=== PATIENT | female | born 1935 | race Two or more races ===

== ENCOUNTER → 2024-02-07 | Outpatient (CLI) | payer OTHER, MEDICAID, SELFPAY ==
[2024-02-07 09:32] LABS: Basophils % (Auto) 0 % (0-2.5); Eosinophils % (Auto) 1 % (0-10); Hematocrit 39.2 % (36.0-46.0); Hemoglobin 13.5 g/dL (12.0-16.0); Immature Granulocytes % (Auto) 1 % (0-0); Immature Granulocytes Auto 0.07 Thou/mm3 (0.00-0.00); Lymphocytes # (Auto) 2.3 Thou/mm3 (1.0-4.8); Lymphocytes % (Auto) 30 % (10-50); Mean Corpuscular HGB Conc 34.4 g/dl (31.0-37.0); Mean Corpuscular Hemoglobin 30.6 pg (25.0-35.0); Mean Corpuscular Volume 89 fL (80-100); Monocytes # (Auto) 0.6 Thou/mm3 (0.0-0.8); Monocytes % (Auto) 8 % (0-12); Neutrophils # (Auto) 4.6 Thou/mm3 (1.8-7.7); Neutrophils % (Auto) 61 % (37-80); Nucleated Red Blood Cell % 0 /100 WBC (0); Platelet Count 272 Thou/mm3 (140-440); RDW Standard Deviation 46.1 fL (36.4-46.3); Red Blood Count 4.41 Miln/mm3 (4.00-5.20); White Blood Count 7.6 Thou/mm3 (3.6-11.0)
[2024-02-07 09:53] LABS: Alanine Aminotransferase 24 U/L (10-49); Albumin, Serum 4.5 gm/dL (3.4-4.8); Alkaline Phosphatase 196 U/L (46-116); Anion Gap 8 (7-16); Aspartate Amino Transferase 15 U/L (0-34); BUN/Creatinine Ratio 16 Ratio (12-20); Bilirubin,Total 1.1 mg/dL (0.3-1.2); Blood Urea Nitrogen 14 mg/dL (9-23); Carbon Dioxide 28.9 mMol/L (20.0-31.0); Chloride 101 mMol/L (98-107); Cholesterol 132 mg/dL (132-200); Creatinine (Component) 0.9 mg/dL (0.6-1.3); Globulin 2.3 gm/dL (2.3-3.5); Glucose 138 mg/dL (74-106); HDL Cholesterol 67 mg/dL (40-60); LDL Cholesterol,Calculated 46 mg/dL (0-130); Osmolality,Calculated 278 (275-295); Potassium 3.9 mMol/L (3.4-5.1); Sodium 138 mMol/L (136-145); Thyroid Stimulating Hormone 3.36 uIU/mL (0.55-4.78); Total Protein 6.8 gm/dL (5.7-8.2); Triglycerides 93 mg/dL (30-150); eGFR > 60 See Note
[2024-02-07 10:15] LABS: Ferritin 103 ng/mL (7.3-270.7)
[2024-02-07 10:25] LABS: Iron 93 mcg/dL (50-170)
[2024-02-07 10:50] LABS: Glucose Estimated Average 212 mg/dL (80-131)
== END | disposition home or self-care (01) ==
LOC: COPL 08:33
PROVIDERS: PCP Family Medicine; Referring Provider Physician Assistant; Visit Provider Physician Assistant
DX: E11.65 Type 2 diabetes mellitus with hyperglycemia (principal); E03.9 Hypothyroidism, unspecified; I10 Essential (primary) hypertension; E78.5 Hyperlipidemia, unspecified; D50.9 Iron deficiency anemia, unspecified
CPT/HCPCS: 36415; 80053; 80061; 82728; 83036; 83540; 84443; 85025

== ENCOUNTER 2024-02-20 10:51 | Emergency (ER) | payer OTHER, MEDICAID, SELFPAY ==
[2024-02-20 11:11] VITALS: BP 131/81; PULSE 82; RESP 19; TEMP 36.5; O2SAT 95; BMI 31.8
--- NOTE | 2024-02-20 11:13 | XR_ITS ---
Examination: CT brain head without contrast. 2-D sagittal coronal reconstructions Date and time of exam:February 20, 2024 1129 hrs. Comparison 11/27/2023 Indications: Headaches beginning 10 days ago CTDI: vol (mGy):49.7 DLP: (mGycm):991 Technique: Multiple CT axial sections of the brain have been obtained, 5 mm slice thickness. Contrast has not been administered. 2-D sagittal, coronal reconstructions have been obtained Low dose protocols were performed. One or more of the following dose reduction techniques were used; automated exposure control, adjustment of the mA and/or KV according to patient size, use of iterative reconstruction technique. Findings: No significant ventricular enlargement. Intra-axial or extra-axial hemorrhage density is not seen. No mass effect or midline shift Basal cisterns are not remarkable. Fourth ventricle is midline. Cranial vault intact. Impression: Negative for acute hemorrhage, mass effect or midline shift Significant chronic sphenoid sinusitis
--- NOTE | 2024-02-20 11:13 | XR_ITS ---
Examination: AP chest single view Technique: Sitting AP chest single view Exam date and time: February 20, 2024 1159 hrs. Comparison May 27, 2023 Indications: Epigastric pain beginning 3 days ago. Findings: Mild enlargement cardiac contour Mild vascular congestion. No lobar pneumonia Impression: Mild vascular congestion
--- NOTE | 2024-02-20 11:15 | EKG_ITS ---
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
--- NOTE | 2024-02-20 11:16 | PD.EDRME ---
Rapid Medical Screening Exam RME Arrival date/time: 02/20/24 10:51 Chief Complaint: Abdominal Pain Time Seen by Provider: 02/20/24 11:00 Vital signs: Vital Signs Temperature 97.7 F 02/20/24 11:11 Pulse Rate 82 02/20/24 11:11 Respiratory Rate 19 02/20/24 11:11 Blood Pressure 131/81 H 02/20/24 11:11 Pulse Oximetry (%) 95 02/20/24 11:11 Oxygen Delivery Method Room Air 02/20/24 11:11 RME Narrative: Epigastric pain, nausea and headache x 10 days
[2024-02-20 11:35] LABS: Basophils % (Auto) 0 % (0-2.5); Eosinophils % (Auto) 1 % (0-10); Hematocrit 38.2 % (36.0-46.0); Hemoglobin 13.2 g/dL (12.0-16.0); Immature Granulocytes % (Auto) 1 % (0-0); Immature Granulocytes Auto 0.06 Thou/mm3 (0.00-0.00); Lymphocytes # (Auto) 2.2 Thou/mm3 (1.0-4.8); Lymphocytes % (Auto) 25 % (10-50); Mean Corpuscular HGB Conc 34.6 g/dl (31.0-37.0); Mean Corpuscular Hemoglobin 30.8 pg (25.0-35.0); Mean Corpuscular Volume 89 fL (80-100); Monocytes # (Auto) 0.5 Thou/mm3 (0.0-0.8); Monocytes % (Auto) 6 % (0-12); Neutrophils # (Auto) 5.8 Thou/mm3 (1.8-7.7); Neutrophils % (Auto) 68 % (37-80); Nucleated Red Blood Cell % 0 /100 WBC (0); Platelet Count 304 Thou/mm3 (140-440); RDW Standard Deviation 46.3 fL (36.4-46.3); Red Blood Count 4.28 Miln/mm3 (4.00-5.20); White Blood Count 8.6 Thou/mm3 (3.6-11.0)
[2024-02-20 11:49] LABS: Alanine Aminotransferase 22 U/L (10-49); Albumin, Serum 4.3 gm/dL (3.4-4.8); Albumin/Globulin Ratio 1.7 (1.2-2.2); Alkaline Phosphatase 240 U/L (46-116); Anion Gap 8 (7-16); Aspartate Amino Transferase 36 U/L (0-34); BUN/Creatinine Ratio 10 Ratio (12-20); Bilirubin,Total 0.8 mg/dL (0.3-1.2); Blood Urea Nitrogen 8 mg/dL (9-23); Calcium 9.5 mg/dL (8.3-10.6); Calcium (Corrected) 9.5 mg/dL (8.5-10.1); Carbon Dioxide 27.4 mMol/L (20.0-31.0); Chloride 100 mMol/L (98-107); Creatinine (Component) 0.8 mg/dL (0.6-1.3); Estimated Creatinine Clearance 44.5 mL/min (>60); Globulin 2.5 gm/dL (2.3-3.5); Glucose 197 mg/dL (74-106); Lipase 26 U/L (12-53); Osmolality,Calculated 273 (275-295); Potassium 3.6 mMol/L (3.4-5.1); Sodium 135 mMol/L (136-145); Total Protein 6.8 gm/dL (5.7-8.2); Troponin I < 0.020 ng/mL (0.0-0.045); eGFR > 60 See Note
[2024-02-20 12:16] LABS: Collection Type, Urine Clean Catch
[2024-02-20 12:28] LABS: Bacteria,Urine 3+; Bilirubin,Urine Negative (Negative); Blood,Urine Negative (Negative); Color,Urine Yellow (Lt Yel-Yel); Glucose, Urine Negative (Negative); Ketones,Urine Negative (Negative); Leukocyte Esterase,Urine Positive (Negative); Nitrite,Urine Positive (Negative); Protein,Urine Trace (Neg - Trace); RBC,Urine 2 /hpf (0-3); Specific Gravity,Urine 1.013 (1.001-1.035); Squamous Epithelial Cell,Urine 1 /hpf (0-5); Urobilinogen,Urine Negative mg/dL (0.0-1.0); WBC,Urine 38 /hpf (0-5)
[2024-02-20 12:29] LABS: Clarity,Urine Hazy (Clear/Hazy)
[2024-02-20 13:50] VITALS: BP 150/78; PULSE 79; RESP 18; TEMP 36.4; O2SAT 96
--- NOTE | 2024-02-20 14:26 | PD.EDADULT ---
ED General RME/HPI General Chief complaint: Abdominal Pain Stated complaint: ABD PAIN/NAUSEA/HEADACHE x 10 DAYS Time Seen by Provider: 02/20/24 11:00 Arrival date/time: 02/20/24 10:51 CC: Headache and upper abdominal pain ongoing for the past 10 days denies any medications for the headache. Denies any pain with urination right now but several days ago it was hurting. Patient denies any vomiting but states she has intermittent nausea. Denies chest pain shortness of breath. No other complaints at this time. RME / HPI RME / HPI narrative: Epigastric pain, nausea and headache x 10 days Related Data Home Medications ?Medication ?Instructions ?Recorded ?Confirmed cilostazol 50 mg tablet 50 mg PO QDAY 04/30/22 09/15/23 isosorbide mononitrate 30 mg 30 mg PO QAM 04/30/22 09/15/23 tablet,extended release 24 hr levothyroxine 50 mcg tablet 50 mcg PO QDAY 04/30/22 09/15/23 amiodarone 200 mg tablet (Pacerone) 200 mg PO QDAY 02/17/23 09/15/23 amlodipine 5 mg tablet (Norvasc) 5 mg PO 2XD 02/17/23 09/15/23 carvedilol 6.25 mg tablet 6.25 mg PO BID 02/17/23 09/15/23 gabapentin 300 mg capsule 300 mg PO 2XD 02/17/23 09/15/23 (Neurontin) hydroxyzine HCl 10 mg tablet 10 mg PO QPM PRN Itching 02/17/23 09/15/23 insulin degludec 100 unit/mL 100 unit subcut QPM 02/17/23 02/17/23 subcutaneous solution (Tresiba U-100 Insulin) melatonin 3 mg tablet 6 mg PO QPM 02/17/23 09/15/23 pantoprazole 40 mg tablet,delayed 40 mg PO 1XD 02/17/23 09/15/23 release (Protonix) revefenacin 175 mcg/3 mL solution 175 mcg inhalation 1XD 02/17/23 02/17/23 for nebulization rosuvastatin 10 mg tablet 10 mg PO QPM 02/17/23 09/15/23 alendronate 70 mg tablet 70 mg PO QWEEK 07/10/24 07/10/24 Previous Rx's ?Medication ?Instructions ?Recorded apixaban 2.5 mg tablet (Eliquis) 2.5 mg PO BID #60 tabs 06/10/20 furosemide 20 mg tablet (Lasix) 20 mg PO QAM #7 tabs 02/26/23 potassium chloride 20 mEq 20 meq PO QDAY #7 tabs 02/26/23 tablet,extended release naproxen 500 mg tablet (Naprosyn) 500 mg PO BID PRN pain #14 tabs 05/27/23 meloxicam 15 mg tablet 15 mg PO QDAY #14 tabs 07/30/23 ciprofloxacin HCl 500 mg tablet 500 mg PO BID #14 tabs 02/20/24 (Cipro) meloxicam 7.5 mg tablet 7.5 mg PO QDAY #10 tabs 02/20/24 ondansetron 4 mg disintegrating 4 mg PO Q8H #10 tabs 02/20/24 tablet Allergies Allergy/AdvReac Type Severity Reaction Status Date / Time No Known Allergies Allergy Verified 02/20/24 10:57 Review of Systems Review of Systems Narrative Review of Systems: GEN: No fever, no chills, no weight loss EYES: No discharge, no visual changes, no pain HEENT: No ear pain, no congestion, no sore throat PULM: No shortness of breath, no cough, no congestion CV: No chest pain, no dyspnea on exertion, no palpitations GI: + nausea, no vomiting, no diarrhea, no pain, no constipation : No frequency, no urgency, no dysuria MUSC/SKEL: No joint pain, no back pain SKIN: No rash PSYCH: No hallucinations, no depression HEME/LYMPH: No easy bleeding or bruising tendencies NEURO: No weakness, + headache Past Medical History Past Medical History NEUROLOGIC: Positive Neurological Disorders and Transient Ischemic Attacks (TIA); Negative Seizures CARDIAC: Positive Cardiac Disorders, Atrial Fibrillation, Coronary Artery Disease, Hypercholesterolemia, Congestive Heart Failure, Hypertension and Varicose Veins; Negative Deep Vein Thrombosis RESPIRATORY: Positive Asthma, Bronchitis and Pneumonia; Negative Chronic Obstructive Pulmonary Disease (COPD) GASTROINTESTINAL: Positive Gastrointestinal Disorders, Gastrointestinal Bleed and Obesity GENITOURINARY: Positive Renal Disease; Negative Genitourinary Disorders REPRODUCTIVE: Positive Previous Pregnancies; Negative Pelvic Inflammatory Disease MUSCULOSKELETAL: Positive Musculoskeletal Disorders, Arthritis and Rheumatoid Arthritis ENT: Positive Cataracts and Deafness ENDOCRINE: Positive Endocrine Disorders and Diabetes Mellitus Type 2; Negative Diabetes Mellitus Type 1 HEMATOLOGIC: Positive Anemia; Negative Blood Disorders, Sickle Cell Disease or Clotting Problems PSYCHO/SOCIAL: Negative Anxiety OTHER HISTORY: Positive Falls; Negative Hospitalization, Blood Transfusions or Anesthesia Reactions Family History FAMILY HISTORY: Negative Family Neurologic Problems, Family Psychiatric Problems, Family Respiratory Disorders, Family Cardiac Disorders, Family Gastrointestinal Problems, Family Cancer, Family Surgery or Family Anesthesia Reaction Surgical History SURGICAL: Positive Cardiac Catheterization, Angiogram, Eye Surgery and Abdominal Surgery; Negative Endocrine Surgery Social History SMOKING STATUS: Never smoker SECOND HAND EXPOSURE: No SUBSTANCE USE: does not use ED Exam Narrative Physical exam: [General: Obese not in any acute distress Head normocephalic HEENT: Within acceptable limits Neck is supple nontender Chest equal chest rise nontender to palpation Respiratory: Clear to auscultation no wheezes crackles or rubs CV: Rate rhythm is regular no murmurs rubs or clicks Abdomen is distended secondary to body habitus soft nontender no masses positive bowel sounds all 4 quadrants Back: No CVA tenderness no spinous process tenderness from cervical spine thoracic and lumbar spine Skin: Intact no petechiae rash induration ulceration or crepitus Extremities: Moving all extremity against resistance cap refill less than 2 seconds neurosensory intact Neuro: Awake alert oriented x3 Glascow coma 15 no focal deficits] Course Quality Measures none Orders Category Date Time Status EKG (ED ONLY) *Do not use* NOW Care 02/20/24 11:[address] head/brain wo con Stat Exams 02/20/24 11:13 Completed CXR [XR chest 1V] Stat Exams 02/20/24 11:13 Completed EKG (ED Only) Stat Exams 02/20/24 11:15 Draft CBC Stat Lab 02/20/24 11:25 Completed CMP [Comprehensive Metabolic Panel] Stat Lab 02/20/24 11:25 Completed Lipase Stat Lab 02/20/24 11:25 Completed Troponin I Stat Lab 02/20/24 11:25 Completed UA [Urinalysis] Stat Lab 02/20/24 11:51 Completed Ibuprofen Tab [Motrin Tab] Med 02/20/24 14:25 Once 600 mg PO X1 ONE Vital Signs Vital signs: Vital Signs Temperature 97.7 F 02/20/24 11:11 Pulse Rate 82 02/20/24 11:11 Respiratory Rate 19 02/20/24 11:11 Blood Pressure 131/81 H 02/20/24 11:11 Pulse Oximetry (%) 95 02/20/24 11:11 Oxygen Delivery Method Room Air 02/20/24 11:11 [facility] Patient data External records reviewed:: [facility] previous records Clinical information provided by:: patient and family Social determinants that could affect healthcare access:: none Patient has the following chronic illnesses:: Diabetes hypertension hypothyroidism How is presenting disease/condition affected by chronic disease/condition?: uneffected by Evaluation data The following diagnostics were reviewed and interpreted by me:: lab results, radiology exam(s) and EKG tracing(s) Lab and/or radiology exams considered but not ordered:: CT of the head is negative for any acute finding requires emergent or immediate intervention EKG performed at 1120 shows a ventricular rate of 82 SC interval 156 QRS of 146 QTc of 484 sinus rhythm right bundle branch block. When compared to old EKG of November 2023 there are no significant changes. CBC shows no acute leukocytosis anemia thrombocytopenia CMP shows no significant electrolyte imbalances other than elevated blood glucose level no renal impairment transaminitis or T. bili elevation Urine is positive for urinary tract infection. Interpretation Summary: UTI headache Medications Medications considered but not ordered:: None Medication administrations:: None Consultations Consultation(s) initiated? (list below): No Diagnosis Differential Diagnosis ED Complaint MDM: UTI intercranial hemorrhage CVA Most likely diagnosis given after review of the tests above:: UTI nausea headache Admission Indicated Admission indicated?: not indicated Explain why admission is indicated or not indicated:: Stable for outpatient follow-up Admission Request Was there a request for admission?: No Disposition Plan Disposition Plan: Discharge Discharge Attestation Discharge Attestation: The patient and all family members were given an opportunity to ask questions and understood the discharge instructions. Discharge instructions specifically effects, indications for sooner follow up or return to the emergency department, and the expected course of current diagnosis. Patient condition: Stable Medical Decision Making Differential Diagnosis Differential Diagnosis: UTI intercranial hemorrhage CVA Lab Data 02/20/24 11:25 02/20/24 11:25 Labs: Lab Results 02/20/24 02/20/24 Range/Units 11:25 11:51 WBC 8.6 (3.6-11.0) Thou/mm3 RBC 4.28 (4.00-5.20) Miln/mm3 Hgb 13.2 (12.0-16.0) g/dL Hct 38.2 (36.0-46.0) % MCV 89 (80-100) fL MCH 30.8 (25.0-35.0) pg MCHC 34.6 (31.0-37.0) g/dl RDW Std Deviation 46.3 (36.4-46.3) fL Plt Count 304 D (140-440) Thou/mm3 Neut % (Auto) 68 (37-80) % Lymph % (Auto) 25 (10-50) % [place] % (Auto) 6 (0-12) % Eos % (Auto) 1 (0-10) % Baso % (Auto) 0 (0-2.5) % Neut # (Auto) 5.8 (1.8-7.7) Thou/mm3 Lymph # (Auto) 2.2 (1.0-4.8) Thou/mm3 [place] # (Auto) 0.5 (0.0-0.8) Thou/mm3 Eos # (Auto) 0.0 (0.0-0.5) Thou/mm3 Baso # (Auto) 0.0 (0.0-0.2) Thou/mm3 Immature Gran # (Auto) 0.06 H (0.00-0.00) Thou/mm3 Absolute Nucleated RBC 0.00 (0.00-0.00) Thou/mm3 Immature Gran % 1 H (0-0) % Nucleated RBC % 0 (0) /100 WBC Sodium 135 L (136-145) mMol/L Potassium 3.6 (3.4-5.1) mMol/L Chloride 100 (98-107) mMol/L Carbon Dioxide 27.4 (20.0-31.0) mMol/L Anion Gap 8 (7-16) BUN 8 L (9-23) mg/dL Creatinine 0.8 (0.6-1.3) mg/dL Estim Creat Clear Calc 44.5 L (>60) mL/min eGFR > 60 (60 - ) See Note BUN/Creatinine Ratio 10 L (12-20) Ratio Glucose 197 H (74-106) mg/dL Calculated Osmolality 273 L (275-295) Calcium 9.5 (8.3-10.6) mg/dL Corrected Calcium 9.5 (8.5-10.1) mg/dL Total Bilirubin 0.8 (0.3-1.2) mg/dL AST 36 H (0-34) U/L ALT 22 (10-49) U/L Alkaline Phosphatase 240 H (46-116) U/L Troponin I < 0.020 (0.0-0.045) ng/mL Total Protein 6.8 (5.7-8.2) gm/dL Albumin 4.3 (3.4-4.8) gm/dL Globulin 2.5 (2.3-3.5) gm/dL Albumin/Globulin Ratio 1.7 (1.2-2.2) Lipase 26 (12-53) U/L Ur Collection Type Clean Catch Urine Color Yellow (Lt Yel-Yel) Urine Clarity Hazy (Clear/Hazy) Urine pH 7.0 (5.0-7.0) Ur Specific [place] 1.013 (1.001-1.035) Urine Protein Trace (Neg - Trace) Urine Glucose (UA) Negative (Negative) Urine Ketones Negative (Negative) Urine Blood Negative (Negative) Urine Nitrite Positive (Negative) Urine Bilirubin Negative (Negative) Urine Urobilinogen (Auto) Negative (0.0-1.0) mg/dL Ur Leukocyte Esterase Positive (Negative) Urine RBC 2 (0-3) /hpf Urine WBC 38 H (0-5) /hpf Ur Squamous Epith Cells 1 (0-5) /hpf Urine Bacteria 3+ A (None) Discharge Plan Plan Patient Disposition: HOME (Self Care) Patient condition on transfer: Stable Prescriptions/Referrals Prescriptions/Med Rec: New ciprofloxacin HCl [Cipro] 500 mg tablet 500 mg PO BID Qty: 14 0RF ondansetron 4 mg tablet,disintegrating 4 mg PO Q8H Qty: 10 0RF meloxicam 7.5 mg tablet 7.5 mg PO QDAY Qty: 10 0RF No Action Eliquis 2.5 mg tablet 2.5 mg PO BID Qty: 60 0RF potassium chloride 20 mEq tablet extended release 20 meq PO QDAY Qty: 7 0RF furosemide [Lasix] 20 mg tablet 20 mg PO QAM Qty: 7 0RF alendronate 70 mg tablet 70 mg PO QWEEK Patient Comments: TAKE 1 TABLET BY MOUTH WEEKLY 30 MINUTES BEFORE FIRST FOOD OR BEVERAGE OR MEDICINE OF THE DAY WITH WATER levothyroxine 50 mcg tablet 50 mcg PO QDAY Patient Comments: TAKE 1 TABLET BY MOUTH ONCE 30 MINUTES BEFORE BREAKFAST cilostazol 50 mg tablet 50 mg PO QDAY Patient Comments: TAKE 1 TABLET BY MOUTH TWICE DAILY isosorbide mononitrate 30 mg tablet extended release 24 hr 30 mg PO QAM Patient Comments: TAKE 1 TABLET BY MOUTH EVERY DAY IN THE MORNING carvedilol 6.25 mg tablet 6.25 mg PO BID Patient Comments: TAKE 1 TABLET BY MOUTH TWICE DAILY amiodarone [Pacerone] 200 mg Tablet 200 mg PO QDAY melatonin 3 mg Tablet 6 mg PO QPM amlodipine [Norvasc] 5 mg Tablet 5 mg PO 2XD pantoprazole [Protonix] 40 mg Tablet,Delayed Release (Dr/Ec) 40 mg PO 1XD gabapentin [Neurontin] 300 mg Capsule 300 mg PO 2XD hydroxyzine HCl 10 mg Tablet 10 mg PO QPM PRN (Reason: Itching) rosuvastatin 10 mg Tablet 10 mg PO QPM revefenacin 175 mcg/3 mL Solution For Nebulization 175 mcg INHALATION 1XD insulin degludec [Tresiba U-100 Insulin] 100 unit/mL Solution 100 unit SUBCUT QPM naproxen [Naprosyn] 500 mg tablet 500 mg PO BID PRN (Reason: pain) Qty: 14 0RF meloxicam 15 mg tablet 15 mg PO QDAY Qty: 14 0RF Referrals: Usha Sterling PA-C [Primary Care Provider] - In 1 week Problem List Clinical Impression: Headache, Nausea, UTI (urinary tract infection) due to urinary indwelling catheter Patient/Caregiver Discharge Instructions Other Activity Instructions:: Take the medications as prescribed there is a worsening of symptoms return the emergency room otherwise follow-up with your primary care doctor in 1 week. Education Materials: Self-Care for Headaches, ED CYSTITIS Female Adult Print Language: German Stand Alone Forms: Karen Award Info., Patient Portal Info Letter, Work/School Release PA/MARTIN Supervising Physician PA/MARTIN Supervising Physician: Zuhair Owens ENP
[2024-02-20] MEDS: IBUPROFEN TAB 600 MG TABLET PO (14:38)
== END 2024-02-20 14:45 | disposition home or self-care (01) ==
PROVIDERS: Physician Assistant; Emergency Provider Emergency Medicine; PCP Physician Assistant; Referring Provider Emergency Medicine
DX: T83.511A Infection and inflammatory reaction due to indwelling urethral catheter, initial encounter (principal); N39.0 Urinary tract infection, site not specified; R51.9 Headache, unspecified; R11.0 Nausea; R10.13 Epigastric pain; I45.10 Unspecified right bundle-branch block; Y84.6 Urinary catheterization as the cause of abnormal reaction of the patient, or of later complication, without mention of misadventure at the time of the procedure
CPT/HCPCS: 36415; 70450; 71045; 80053; 81001; 83690; 84484; 85025; 93005; 99284; A9270

== ENCOUNTER → 2024-03-07 | Outpatient (CLI) | payer OTHER, MEDICAID, SELFPAY | END | disposition home or self-care (01) | PROVIDERS: PCP Registered Nurse; Referring Provider Registered Nurse; Visit Provider Registered Nurse | DX: N39.0 Urinary tract infection, site not specified (principal) | CPT/HCPCS: 87086 ==

== ENCOUNTER 2024-03-08 07:34 | Emergency (ER) | payer MEDICARE, MEDICAID, SELFPAY ==
[2024-03-08 07:36] VITALS: BMI 30.8
[2024-03-08 07:47] VITALS: BP 135/79; PULSE 99; RESP 20; TEMP 36.5; O2SAT 99
--- NOTE | 2024-03-08 07:52 | XR_ITS ---
Examination: CT abdomen and pelvis without contrast. Coronal 3-D reconstructions. Sagittal 2-D reconstructions. Date and time of exam:March 08, 2024 0836 hrs. Comparison December 17, 2022 Indications: Lower abdominal pain and painful urination today, history 2 mm left renal calculus on CT study December 17, 2022 CTDI: vol (mGy): 11.4 DLP: (mGycm): 571 Technique: Axial images of the abdomen have been obtained, 3 mm slice thickness Intravenous contrast material has not been administered. Low dose protocols were performed. One or more of the following dose reduction techniques were used; automated exposure control, adjustment of the mA and/or KV according to patient size, use of iterative reconstruction technique. Findings: Left lower lobe including 9 mm pulmonary nodule axial image 25 and 11 mm pulmonary nodule axial image 56 No visualized liver or splenic lesion Absent gallbladder No extrahepatic biliary tract dilatation No pancreatic or adrenal mass 4 mm nonobstructing left renal calculus, no hydronephrosis or ureteral calculi Moderate bilateral renal parenchymal scar formation Abdominal aortic calcification no aneurysmal dilatation Normal appendix Colonic diverticulosis, no diverticulitis Retroverted atrophic uterus No bladder mass or bladder calculi Severe osteopenia Chronic osteoporotic compressions L2, 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
--- NOTE | 2024-03-08 07:52 | PD.EDRME ---
Rapid Medical Screening Exam RME Arrival date/time: 03/08/24 07:34 88-year-old female presents to the emergency department complains of dysuria and back pain and generalized bodyaches Chief Complaint: Urogenital-Female Time Seen by Provider: 03/08/24 07:46 Vital signs: Vital Signs Temperature 97.7 F 03/08/24 07:47 Pulse Rate 99 03/08/24 07:47 Respiratory Rate 20 03/08/24 07:47 Blood Pressure 135/79 H 03/08/24 07:47 Pulse Oximetry (%) 99 03/08/24 07:47 Oxygen Delivery Method Room Air 03/08/24 07:47
[2024-03-08 08:46] LABS: Collection Type, Urine Clean Catch
[2024-03-08 08:54] LABS: Bacteria,Urine 1+; Bilirubin,Urine 1+ (Negative); Blood,Urine Negative (Negative); Clarity,Urine Clear (Clear/Hazy); Color,Urine Drk-Yellow (Lt Yel-Yel); Glucose, Urine Negative (Negative); Ketones,Urine Negative (Negative); Leukocyte Esterase,Urine Negative (Negative); Nitrite,Urine Positive (Negative); PH,Urine 7.5 (5.0-7.0); Protein,Urine Negative (Neg - Trace); RBC,Urine 1 /hpf (0-3); Specific Gravity,Urine 1.008 (1.001-1.035); Squamous Epithelial Cell,Urine 3 /hpf (0-5); WBC,Urine 2 /hpf (0-5)
[2024-03-08 08:55] LABS: Culture Indicated,Urine Yes
[2024-03-08 09:08] LABS: Basophils % (Auto) 0 % (0-2.5); Eosinophils # (Auto) 0.1 Thou/mm3 (0.0-0.5); Eosinophils % (Auto) 1 % (0-10); Hematocrit 37.9 % (36.0-46.0); Hemoglobin 13.1 g/dL (12.0-16.0); Immature Granulocytes % (Auto) 1 % (0-0); Immature Granulocytes Auto 0.07 Thou/mm3 (0.00-0.00); Lymphocytes # (Auto) 2.2 Thou/mm3 (1.0-4.8); Lymphocytes % (Auto) 27 % (10-50); Mean Corpuscular HGB Conc 34.6 g/dl (31.0-37.0); Mean Corpuscular Hemoglobin 30.3 pg (25.0-35.0); Mean Corpuscular Volume 88 fL (80-100); Monocytes # (Auto) 0.7 Thou/mm3 (0.0-0.8); Monocytes % (Auto) 8 % (0-12); Neutrophils # (Auto) 5.3 Thou/mm3 (1.8-7.7); Neutrophils % (Auto) 63 % (37-80); Nucleated Red Blood Cell % 0 /100 WBC (0); Platelet Count 345 Thou/mm3 (140-440); RDW Standard Deviation 44.2 fL (36.4-46.3); Red Blood Count 4.33 Miln/mm3 (4.00-5.20); White Blood Count 8.4 Thou/mm3 (3.6-11.0)
[2024-03-08 09:13] LABS: Alanine Aminotransferase 12 U/L (10-49); Albumin, Serum 4.5 gm/dL (3.4-4.8); Albumin/Globulin Ratio 1.7 (1.2-2.2); Alkaline Phosphatase 220 U/L (46-116); Anion Gap 10 (7-16); Aspartate Amino Transferase 27 U/L (0-34); BUN/Creatinine Ratio 9 Ratio (12-20); Bilirubin,Total 0.7 mg/dL (0.3-1.2); Blood Urea Nitrogen 7 mg/dL (9-23); Carbon Dioxide 26.2 mMol/L (20.0-31.0); Chloride 100 mMol/L (98-107); Creatinine (Component) 0.8 mg/dL (0.6-1.3); Estimated Creatinine Clearance 45.6 mL/min (>60); Globulin 2.7 gm/dL (2.3-3.5); Glucose 130 mg/dL (74-106); Lipase 28 U/L (12-53); Osmolality,Calculated 271 (275-295); Potassium 3.7 mMol/L (3.4-5.1); Sodium 136 mMol/L (136-145); Total Protein 7.2 gm/dL (5.7-8.2); eGFR > 60 See Note
--- NOTE | 2024-03-08 09:55 | XR_ITS ---
Examination: AP lateral chest 2 views Technique: Upright AP lateral chest 2 views Exam date and time: March 08, 2024 2902 hrs. Indications: Coughing congestion today Findings: Mild prominence cardiac contour Mild vascular congestion. No lobar pneumonia or pulmonary edema Impression: No lobar pneumonia or pulmonary edema
[2024-03-08] MEDS: ACETAMINOPHEN 500 MG TABLET 1000 MG PO (10:14)
--- NOTE | 2024-03-08 12:06 | EDNOTE_ITS ---
<Statement entered by Laura Ventura MD - 03/10/24 06:47> As co-signing physician, I was present and available for consult prn. I concur with the plan and care as documented by the midlevel provider. ED Female Urogenital RME/HPI General Chief complaint: Urogenital-Female Stated complaint: PAIN WITH URINATION FOR 3 DAYS Time Seen by Provider: 03/08/24 07:46 Arrival date/time: 03/08/24 07:34 88-year-old female presents to the emergency department complains of dysuria and back pain and generalized bodyaches patient reports no nausea or vomiting no chest pain or shortness of breath patient's primary concern is of dysuria Limitations: no limitations RME / HPI RME / HPI Narrative: 03/08/24 07:34 88-year-old female presents to the emergency department complains of dysuria and back pain and generalized bodyaches Related Data Home Medications ?Medication ?Instructions ?Recorded ?Confirmed cilostazol 50 mg tablet 50 mg PO QDAY 04/30/22 09/15/23 isosorbide mononitrate 30 mg 30 mg PO QAM 04/30/22 09/15/23 tablet,extended release 24 hr levothyroxine 50 mcg tablet 50 mcg PO QDAY 04/30/22 09/15/23 amiodarone 200 mg tablet (Pacerone) 200 mg PO QDAY 02/17/23 09/15/23 amlodipine 5 mg tablet (Norvasc) 5 mg PO 2XD 02/17/23 09/15/23 carvedilol 6.25 mg tablet 6.25 mg PO BID 02/17/23 09/15/23 gabapentin 300 mg capsule 300 mg PO 2XD 02/17/23 09/15/23 (Neurontin) hydroxyzine HCl 10 mg tablet 10 mg PO QPM PRN Itching 02/17/23 09/15/23 insulin degludec 100 unit/mL 100 unit subcut QPM 02/17/23 02/17/23 subcutaneous solution (Tresiba U-100 Insulin) melatonin 3 mg tablet 6 mg PO QPM 02/17/23 09/15/23 pantoprazole 40 mg tablet,delayed 40 mg PO 1XD 02/17/23 09/15/23 release (Protonix) revefenacin 175 mcg/3 mL solution 175 mcg inhalation 1XD 02/17/23 02/17/23 for nebulization rosuvastatin 10 mg tablet 10 mg PO QPM 02/17/23 09/15/23 alendronate 70 mg tablet 70 mg PO QWEEK 09/15/23 09/15/23 Previous Rx's ?Medication ?Instructions ?Recorded apixaban 2.5 mg tablet (Eliquis) 2.5 mg PO BID #60 tabs 06/10/20 furosemide 20 mg tablet (Lasix) 20 mg PO QAM #7 tabs 02/26/23 potassium chloride 20 mEq 20 meq PO QDAY #7 tabs 02/26/23 tablet,extended release naproxen 500 mg tablet (Naprosyn) 500 mg PO BID PRN pain #14 tabs 05/27/23 meloxicam 15 mg tablet 15 mg PO QDAY #14 tabs 07/30/23 ciprofloxacin HCl 500 mg tablet 500 mg PO BID #14 tabs 02/20/24 (Cipro) meloxicam 7.5 mg tablet 7.5 mg PO QDAY #10 tabs 02/20/24 ondansetron 4 mg disintegrating 4 mg PO Q8H #10 tabs 02/20/24 tablet Allergies Allergy/AdvReac Type Severity Reaction Status Date / Time No Known Allergies Allergy Verified 03/08/24 07:40 Review of Systems Review of Systems Systems Reviewed: All systems reviewed, normal except as documented Constitutional Constitutional: Reports system reviewed and no additional complaints, except as documented, Denies fever(s) and Denies headache(s) Eyes Eyes: Reports system reviewed and no additional complaints, except as documented and Denies blurry vision ENT Ears, Nose, Mouth, and Throat: Reports system reviewed and no additional complaints, except as documented, Denies headache(s), Denies nasal congestion and Denies nasal discharge Cardiovascular Cardiovascular: Reports system reviewed and no additional complaints, except as documented, Denies chest pain and Denies dyspnea Respiratory Respiratory: Reports system reviewed and no additional complaints, except as documented, Denies chest congestion, Denies cough and Denies dyspnea Gastrointestinal Gastrointestinal: Reports system reviewed and no additional complaints, except as documented and Denies abdominal pain Genitourinary Genitourinary: Reports system reviewed and no additional complaints, except as documented, Denies abnormal vaginal bleeding, Denies difficulty voiding, Reports dysuria, Reports pelvic pain, Denies urinary hesitancy, Reports urinary urgency and Denies vaginal pruritus Integumentary/Breasts Skin/Breast: Reports system reviewed and no additional complaints, except as documented and Denies rash Neurologic Neurologic: Reports system reviewed and no additional complaints, except as documented, Reports as per HPI and Denies headache(s) Past Medical History Past Medical History NEUROLOGIC: Positive Neurological Disorders and Transient Ischemic Attacks (TIA); Negative Seizures CARDIAC: Positive Cardiac Disorders, Atrial Fibrillation, Coronary Artery Disease, Hypercholesterolemia, Congestive Heart Failure, Hypertension and Varicose Veins; Negative Deep Vein Thrombosis RESPIRATORY: Positive Asthma, Bronchitis and Pneumonia; Negative Chronic Obstructive Pulmonary Disease (COPD) GASTROINTESTINAL: Positive Gastrointestinal Disorders, Gastrointestinal Bleed and Obesity GENITOURINARY: Positive Renal Disease; Negative Genitourinary Disorders REPRODUCTIVE: Positive Previous Pregnancies; Negative Pelvic Inflammatory Disease MUSCULOSKELETAL: Positive Musculoskeletal Disorders, Arthritis and Rheumatoid Arthritis ENT: Positive Cataracts and Deafness ENDOCRINE: Positive Endocrine Disorders and Diabetes Mellitus Type 2; Negative Diabetes Mellitus Type 1 HEMATOLOGIC: Positive Anemia; Negative Blood Disorders, Sickle Cell Disease or Clotting Problems PSYCHO/SOCIAL: Negative Anxiety OTHER HISTORY: Positive Falls; Negative Hospitalization, Blood Transfusions or Anesthesia Reactions Family History FAMILY HISTORY: Negative Family Neurologic Problems, Family Psychiatric Problems, Family Respiratory Disorders, Family Cardiac Disorders, Family Gastrointestinal Problems, Family Cancer, Family Surgery or Family Anesthesia Reaction Surgical History SURGICAL: Positive Cardiac Catheterization, Angiogram, Eye Surgery and Abdominal Surgery; Negative Endocrine Surgery Social History SMOKING STATUS: Never smoker SECOND HAND EXPOSURE: No SUBSTANCE USE: does not use ED Exam General Limitations: Present no limitations General appearance: Present alert and in no apparent distress Head Head exam: Present atraumatic, normocephalic and normal inspection Eye Eye exam: Present normal appearance, PERRL and EOMI; Absent conjunctival injection ENT ENT exam: Present normal exam, normal oropharynx and mucous membranes moist Neck Neck exam: Present normal inspection, full ROM and trachea midline Chest Chest inspection: Present normal inspection and symmetric chest wall rise Respiratory Respiratory exam: Present normal lung sounds bilaterally; Absent respiratory distress Cardiovascular Cardiovascular exam: Present regular rate, normal rhythm and normal heart sounds Abdominal Exam Abdominal exam: Present soft and normal bowel sounds; Absent distention, tenderness, guarding, rebound or rigidity Extremities Exam Extremities exam: Present normal inspection and full ROM Back Exam Back exam: Present normal inspection and full ROM Neurological Exam Neurological exam: Present alert, oriented X3, CN II-XII intact, normal gait and reflexes normal; Absent motor sensory deficit Psychiatric Psychiatric exam: Present normal affect and normal mood Skin Skin exam: Present warm, dry, intact and normal color; Absent rash Course Quality Measures none Orders Category Date Time Status CT abdomen pelvis wo con Stat Exams 03/08/24 07:52 Completed XR chest 2V Stat Exams 03/08/24 09:55 Completed CBC Stat Lab 03/08/24 08:19 Completed Comprehensive Metabolic Panel Stat Lab 03/08/24 08:19 Completed Lipase Stat Lab 03/08/24 08:19 Completed UA, C/S IF [Urinalysis, C/S if Indicated] Stat Lab 03/08/24 08:00 Completed Urine Culture Stat Lab 03/08/24 08:00 Received Acetaminophen Tab [Tylenol ES Tab] Med 03/08/24 09:56 Discontinued 1,000 mg PO X1 ONE Lidocaine 1% 20 ml [Xylocaine 1% 20 ML] Med 03/08/24 12:06 Discontinued 2.1 ml INFL X1 ONE cefTRIAXone [Rocephin] Med 03/08/24 12:06 Discontinued 1,000 mg IM X1 ONE Vital Signs Vital signs: Vital Signs Temperature 97.7 F 03/08/24 07:47 Pulse Rate 99 03/08/24 07:47 Respiratory Rate 20 03/08/24 07:47 Blood Pressure 135/79 H 03/08/24 07:47 Pulse Oximetry (%) 99 03/08/24 07:47 Oxygen Delivery Method Room Air 03/08/24 07:47 O2 saturation 99% room air within normal limits Urogenital - Female MDM Narrative MDM Narrative:: 88-year-old female presents to the emergency department complains of dysuria and back pain and generalized bodyaches patient reports no nausea or vomiting no chest pain or shortness of breath patient's primary concern is of dysuria Patient reports currently she is on a course of antibiotics started yesterday On exam patient has nontender abdomen well-appearing Lab work obtained CT scan obtained x-ray obtained No acute emergent findings noted Patient given Rocephin here in the emergency department instructed to continue taking the antibiotics Patient discharged home in no distress to follow-up with primary care doctor in the next 24 to 48 hours and for any worsening symptoms to return to the ER immediately Patient data External records reviewed:: [facility] previous records Clinical information provided by:: family Social determinants that could affect healthcare access:: none Patient has the following chronic illnesses:: See history How is presenting disease/condition affected by chronic disease/condition?: uneffected by Evaluation data The following diagnostics were reviewed and interpreted by me:: lab results and radiology exam(s) Lab and/or radiology exams considered but not ordered:: Labs and radiology obtained Interpretation Summary: Reviewed by me Medications / Prescriptions Medications or Prescriptions considered but not ordered:: Given Medication administrations:: Medication Administration History Discontinued Medications Acetaminophen (Acetaminophen 500 Mg Tablet) 1,000 mg PO X1 ONE Stop: 03/08/24 09:57 Last Admin: 03/08/24 10:14 Dose: 1,000 mg Documented By: HIPOLITO Ceftriaxone Sodium (Ceftriaxone Sod Inj 1,000 Mg Vial) 1,000 mg IM X1 ONE Stop: 03/08/24 12:07 Last Admin: 03/08/24 12:19 Dose: 1,000 mg Documented By: HIPOLITO Lidocaine HCl (Lidocaine Hcl 1% 20 Ml Vial) 2.1 ml INFL X1 ONE Stop: 03/08/24 12:07 Last Admin: 03/08/24 12:21 Dose: 2.1 ml Documented By: HIPOLITO Given Consultations Consultation(s) initiated? (list below): No Diagnosis Urogenital Female Differential Diagnosis: urinary tract infection and cystitis Most likely diagnosis given after review of the tests above:: UTI Admission Indicated Admission indicated?: not indicated Admission Request Was there a request for admission?: No Disposition Plan Disposition Plan: Discharge Discharge Attestation Discharge Attestation: The patient and all family members were given an opportunity to ask questions and understood the discharge instructions. Discharge instructions specifically effects, indications for sooner follow up or return to the emergency department, and the expected course of current diagnosis. Patient condition: Stable Discharge Plan Plan Patient Disposition: HOME (Self Care) Disposition Comment: Stable Prescriptions/Referrals Prescriptions/Med Rec: No Action Eliquis 2.5 mg tablet 2.5 mg PO BID Qty: 60 0RF potassium chloride 20 mEq tablet extended release 20 meq PO QDAY Qty: 7 0RF furosemide [Lasix] 20 mg tablet 20 mg PO QAM Qty: 7 0RF alendronate 70 mg tablet 70 mg PO QWEEK Patient Comments: TAKE 1 TABLET BY MOUTH WEEKLY 30 MINUTES BEFORE FIRST FOOD OR BEVERAGE OR MEDICINE OF THE DAY WITH WATER ciprofloxacin HCl [Cipro] 500 mg tablet 500 mg PO BID Qty: 14 0RF ondansetron 4 mg tablet,disintegrating 4 mg PO Q8H Qty: 10 0RF meloxicam 7.5 mg tablet 7.5 mg PO QDAY Qty: 10 0RF levothyroxine 50 mcg tablet 50 mcg PO QDAY Patient Comments: TAKE 1 TABLET BY MOUTH ONCE 30 MINUTES BEFORE BREAKFAST cilostazol 50 mg tablet 50 mg PO QDAY Patient Comments: TAKE 1 TABLET BY MOUTH TWICE DAILY isosorbide mononitrate 30 mg tablet extended release 24 hr 30 mg PO QAM Patient Comments: TAKE 1 TABLET BY MOUTH EVERY DAY IN THE MORNING carvedilol 6.25 mg tablet 6.25 mg PO BID Patient Comments: TAKE 1 TABLET BY MOUTH TWICE DAILY amiodarone [Pacerone] 200 mg Tablet 200 mg PO QDAY melatonin 3 mg Tablet 6 mg PO QPM amlodipine [Norvasc] 5 mg Tablet 5 mg PO 2XD pantoprazole [Protonix] 40 mg Tablet,Delayed Release (Dr/Ec) 40 mg PO 1XD gabapentin [Neurontin] 300 mg Capsule 300 mg PO 2XD hydroxyzine HCl 10 mg Tablet 10 mg PO QPM PRN (Reason: Itching) rosuvastatin 10 mg Tablet 10 mg PO QPM revefenacin 175 mcg/3 mL Solution For Nebulization 175 mcg INHALATION 1XD insulin degludec [Tresiba U-100 Insulin] 100 unit/mL Solution 100 unit SUBCUT QPM naproxen [Naprosyn] 500 mg tablet 500 mg PO BID PRN (Reason: pain) Qty: 14 0RF meloxicam 15 mg tablet 15 mg PO QDAY Qty: 14 0RF Referrals: Usha Sterling PA-C [Primary Care Provider] - In 1 week Problem List Clinical Impression: Dysuria Patient/Caregiver Discharge Instructions Education Materials: Dysuria Additional Instructions: Please follow up with your primary care doctor in the next 24-48hrs for any worsening symptoms return here immediately Print Language: German Stand Alone Forms: Karen Award Info., Patient Portal Info Letter PA/MARTIN Supervising Physician PA/MARTIN Supervising Physician: Dr. ventura
[2024-03-08] MEDS: cefTRIAXone SOD INJ 1,000 MG VIAL 1000 MG IM (12:19)
[2024-03-08] MEDS: LIDOCAINE HCL 1% 20 ML VIAL 2.1 ML INFL (12:21)
== END 2024-03-08 12:30 | disposition home or self-care (01) ==
PROVIDERS: Nurse Practitioner Primary Care; Emergency Provider Emergency Medicine; PCP Physician Assistant
DX: R30.0 Dysuria (principal); R05.9 Cough, unspecified; R10.30 Lower abdominal pain, unspecified
CPT/HCPCS: 36415; 71046; 74176; 80053; 81001; 83690; 85025; 87086; 96372; 99284; J0696; J3490; A9270

== ENCOUNTER 2024-03-11 09:09 | Emergency (ER) | payer MEDICARE, MEDICAID, SELFPAY ==
[2024-03-11 09:49] VITALS: PULSE 62; RESP 16
--- NOTE | 2024-03-11 09:52 | EDNOTE_ITS ---
ED Abdominal Pain RME/HPI General Chief Complaint: Abdominal Pain Stated complaint: ABD Time seen by provider: 03/11/24 09:48 Arrival date/time: 03/11/24 09:09 RME / HPI RME / HPI narrative: DR. PEREZ MAIN ED EVALUATION: 88 year old female presents to the Emergency Department with complaint of constipation onset 5 days. Symptoms are moderate. She also mentions she has not urinated since yesterday. She states she has diffuse abdominal pain, but worse in the lower abdomen. Denies taking any painkillers at home. Seen here 03/08/24 and discharged with dysuria. Patient denies any of the following: diarrhea, vomiting, or any other symptoms at this time. PMHx: Cholecystectomy, bladder lift surgery. Social Hx: No tobacco, alcohol, or substance use. Related Data Home Medications ?Medication ?Instructions ?Recorded ?Confirmed cilostazol 50 mg tablet 50 mg PO QDAY 04/30/22 09/15/23 isosorbide mononitrate 30 mg 30 mg PO QAM 04/30/22 09/15/23 tablet,extended release 24 hr levothyroxine 50 mcg tablet 50 mcg PO QDAY 04/30/22 09/15/23 amiodarone 200 mg tablet (Pacerone) 200 mg PO QDAY 02/17/23 09/15/23 amlodipine 5 mg tablet (Norvasc) 5 mg PO 2XD 02/17/23 09/15/23 carvedilol 6.25 mg tablet 6.25 mg PO BID 02/17/23 09/15/23 gabapentin 300 mg capsule 300 mg PO 2XD 02/17/23 09/15/23 (Neurontin) hydroxyzine HCl 10 mg tablet 10 mg PO QPM PRN Itching 02/17/23 09/15/23 insulin degludec 100 unit/mL 100 unit subcut QPM 02/17/23 02/17/23 subcutaneous solution (Tresiba U-100 Insulin) melatonin 3 mg tablet 6 mg PO QPM 02/17/23 09/15/23 pantoprazole 40 mg tablet,delayed 40 mg PO 1XD 02/17/23 09/15/23 release (Protonix) revefenacin 175 mcg/3 mL solution 175 mcg inhalation 1XD 02/17/23 02/17/23 for nebulization rosuvastatin 10 mg tablet 10 mg PO QPM 02/17/23 09/15/23 alendronate 70 mg tablet 70 mg PO QWEEK 09/15/23 09/15/23 Previous Rx's ?Medication ?Instructions ?Recorded apixaban 2.5 mg tablet (Eliquis) 2.5 mg PO BID #60 tabs 06/10/20 furosemide 20 mg tablet (Lasix) 20 mg PO QAM #7 tabs 02/26/23 potassium chloride 20 mEq 20 meq PO QDAY #7 tabs 02/26/23 tablet,extended release naproxen 500 mg tablet (Naprosyn) 500 mg PO BID PRN pain #14 tabs 05/27/23 meloxicam 15 mg tablet 15 mg PO QDAY #14 tabs 07/30/23 ciprofloxacin HCl 500 mg tablet 500 mg PO BID #14 tabs 02/20/24 (Cipro) meloxicam 7.5 mg tablet 7.5 mg PO QDAY #10 tabs 02/20/24 ondansetron 4 mg disintegrating 4 mg PO Q8H #10 tabs 02/20/24 tablet docusate sodium 100 mg capsule 100 mg PO BID PRN constipation #20 03/11/24 (Dulcolax Stool Softener caps (docusate)) docusate sodium 100 mg capsule 100 mg PO BID PRN constipation #20 03/11/24 (Dulcolax Stool Softener caps (docusate)) Allergies Allergy/AdvReac Type Severity Reaction Status Date / Time No Known Allergies Allergy Verified 03/08/24 07:40 Review of Systems Review of Systems Systems Reviewed: All systems reviewed, normal except as documented Narrative Review of Systems: GEN: No fever, no chills, no weight loss EYES: No discharge, no visual changes, no pain HEENT: No ear pain, no congestion, no sore throat PULM: No shortness of breath, no cough, no congestion CV: No chest pain, no dyspnea on exertion, no palpitations GI: No nausea, no vomiting, no diarrhea, + diffuse abdominal pain worse lower abdomen, + constipation : + not urinated since yesterday MUSC/SKEL: No joint pain, no back pain SKIN: No rash PSYCH: No hallucinations, no depression HEME/LYMPH: No easy bleeding or bruising tendencies NEURO: No weakness, no headache Past Medical History Past Medical History NEUROLOGIC: Positive Neurological Disorders and Transient Ischemic Attacks (TIA); Negative Seizures CARDIAC: Positive Cardiac Disorders, Atrial Fibrillation, Coronary Artery Disease, Hypercholesterolemia, Congestive Heart Failure, Hypertension and Varicose Veins; Negative Deep Vein Thrombosis RESPIRATORY: Positive Asthma, Bronchitis and Pneumonia; Negative Chronic Obstructive Pulmonary Disease (COPD) GASTROINTESTINAL: Positive Gastrointestinal Disorders, Gastrointestinal Bleed and Obesity GENITOURINARY: Positive Renal Disease; Negative Genitourinary Disorders REPRODUCTIVE: Positive Previous Pregnancies; Negative Pelvic Inflammatory Disease MUSCULOSKELETAL: Positive Musculoskeletal Disorders, Arthritis and Rheumatoid Arthritis ENT: Positive Cataracts and Deafness ENDOCRINE: Positive Endocrine Disorders and Diabetes Mellitus Type 2; Negative Diabetes Mellitus Type 1 HEMATOLOGIC: Positive Anemia; Negative Blood Disorders, Sickle Cell Disease or Clotting Problems PSYCHO/SOCIAL: Negative Anxiety OTHER HISTORY: Positive Falls; Negative Hospitalization, Blood Transfusions or Anesthesia Reactions Family History FAMILY HISTORY: Negative Family Neurologic Problems, Family Psychiatric Problems, Family Respiratory Disorders, Family Cardiac Disorders, Family Gastrointestinal Problems, Family Cancer, Family Surgery or Family Anesthesia Reaction Surgical History SURGICAL: Positive Cardiac Catheterization, Angiogram, Eye Surgery and Abdominal Surgery; Negative Endocrine Surgery Social History SMOKING STATUS: Never smoker SECOND HAND EXPOSURE: No SUBSTANCE USE: does not use ALCOHOL: Never ED Exam Narrative Physical exam: GENERAL APPEARANCE: Well hydrated, well nourished, in no acute distress. Moaning and looks uncomfortable. VITALS: All vitals were reviewed and the pulse ox is 96% on room air which is normal according to my interpretation. HEENT: Normocephalic, atramatic, EOMI, EACs are patent. There is no bulge or r etraction. Throat without erythema or exudate. Moist oromucosa. No jaundice NECK: Supple, no JVD or bruits. CARDIOVASCULAR: Heart regular without S3-S4 or murmur. No rubs or gallops. LUNGS/CHEST: Clear to auscultation bilaterally. No rales, rhonchi, or wheezing. Normal inspection. ABDOMEN: Little distention and tender diffusely but more in the suprapubic area. No pulsatile masses. No rebound, rigidity, or guarding. No incarcerated hernia. EXTREMITIES: No edema, clubbing, or cyanosis. Intact CSM. Normal inspection and palpation. SKIN: Warm and dry without rashes. Normal inspection. MUSCULOSKELETAL: No gross deformity, full ROM all extremities. Normal inspection. NEURO: Alert and oriented x3. Cranial nerves II through XII grossly intact. There are no other motor or sensory deficits noted. PSYCHIATRIC: Normal mood and affect. No psychosis. Course Quality Measures none Orders Category Date Time Status Bedside Blood Glucose NOW Care 03/11/24 10:[address] Screening NOW Care 03/11/24 10:01 Active Lima [Urinary Catheter] QS Care 03/11/24 10:[address] abdomen pelvis w con Stat Exams 03/11/24 10:00 Completed CBC Stat Lab 03/11/24 10:23 Completed CMP [Comprehensive Metabolic Panel] Stat Lab 03/11/24 10:23 Completed Ketone [Beta Hydroxybutyrate] Stat Lab 03/11/24 10:23 Completed Lipase Stat Lab 03/11/24 10:23 Completed UA, C/S IF [Urinalysis, C/S if Indicated] Stat Lab 03/11/24 10:22 Completed Morphine Inj Med 03/11/24 10:55 Discontinued 2 mg IVP X1 ONE Morphine Inj Med 03/11/24 10:03 Discontinued 4 mg IVP X1 ONE Ondansetron Inj [Zofran Inj] Med 03/11/24 10:03 Discontinued 4 mg IV X1 ONE Sodium Chloride 0.9% 1000 ml [Ns] 1,000 ml Med 03/11/24 10:00 Active IV 125 mls/hr Vital Signs Vital signs: Vital Signs Temperature 98.5 F 03/11/24 09:55 Pulse Rate 102 H 03/11/24 09:55 Respiratory Rate 18 03/11/24 09:55 Blood Pressure 119/80 03/11/24 09:55 Pulse Oximetry (%) 96 03/11/24 09:55 Oxygen Delivery Method Room Air 03/11/24 09:55 Abdominal Pain MDM MDM Narrative MDM Narrative:: I, Lacey Mcwilliams, am scribing for and in the presence of Dr. Perez. CBC is negative. CMP unremarkable except for potassium of 3.3. UA negative. Beta hydroxy negative. And CT abdomen was done that was read by Dr. Jose Manuel Medrano. Please see his report. The report sounds almost identical to the one that was made on March 08, 2024. In the ER we put a Lima in and we only got about 200 mL of urine. So there is no urinary retention. I look at the CT myself I did not appreciate a lot of constipation. Definitely no bowel obstruction. No free air. No free fluid. No stranding. I am going prescribe her some milk magnesia and Colace or Dulcolax for the constipation. And she should follow her PMD in a few days. I gave the patient and her daughter copy of the CT reports to follow-up with PMD. Patient is encouraged to return to the emergency department if condition worsens or if new symptoms develop especially fever. Patient data External records reviewed:: [facility] previous records (Reviewed last ED visit dated 03/08/24, discharged with the following: Dysuria.) Clinical information provided by:: patient Social determinants that could affect healthcare access:: none Patient has the following chronic illnesses:: Diabetes, hypertension, hypothyroidism. Cholecystectomy, bladder lift surgery. How is presenting disease/condition affected by chronic disease/condition?: exacerbated by Evaluation data The following diagnostics were reviewed and interpreted by me:: lab results and radiology exam(s) Lab and/or radiology exams considered but not ordered:: none Interpretation Summary: Procedure(s): CT abdomen pelvis w con Accession Number(s): [id number] cc: Jose Manuel Medarno MD; Christopher Perez MD; Rishabh Lewis MD~ Examination: CT abdomen with intravenous contrast CT pelvis with intravenous contrast 2-D coronal reconstructions 2-D sagittal reconstructions Date and time of exam:March 11 2024-0 2 hours Comparison March 08, 2024 Indications: Abdominal pain, unable to urinate, constipation 2 weeks, 4 mm nonobstructing left renal calculus on CT abdomen pelvis without contrast March 08, 2024. CTDI: vol (mGy) 19.9 DLP: (mGycm) 685 Technique: Multiple axial sections of the abdomen and pelvis have been obtained. 64 slice high-resolution scanner used. 3 mm axial sections have been obtained, post intravenous injection 60 cc Isovue-370 2-D sagittal, coronal reconstructions obtained. Low dose protocols were performed. One or more of the following dose reduction techniques were used; automated exposure control, adjustment of the mA and/or KV according to patient size, use of iterative reconstruction technique. Findings: Bilateral small subcentimeter soft pulmonary nodules in both lower lobes No visualized liver or splenic lesion Gallbladder is not visualized No extrahepatic biliary tract dilatation No pancreatic or adrenal mass 3 mm nonobstructing left renal calculus, no hydronephrosis or ureteral calculi Aorta normal size Abundant stool in the right colon Normal appendix There are fluid distended small bowel loops in the left lower abdomen axial image 152 Colonic diverticulosis, no definite diverticulitis Atrophic retroverted uterus Severe osteopenia with osteoporotic compressions L4 L3 L2 Right hip arthroplasty Advanced narrowing left hip joint Mild cellulitis pattern in the subcutaneous fatty tissue buttock region axial image 216, no soft tissue abscess Urinary Lima catheter in the bladder Impression: Bilateral subcentimeter soft pulmonary nodules in both lower lobes, consider CT chest without contrast follow-up No extrahepatic biliary tract dilatation 3 mm nonobstructing left renal calculus, no hydronephrosis or ureteral calculi Fluid distended small bowel loops in the left lower abdomen, consider ileus, enteritis such as Crohn's disease Severe osteopenia Chronic appearing osteoporotic compressions L4, L3, L2 Advanced left hip osteoarthritis Dictated By: Jose Manuel Medrano MD Medications / Prescriptions Medications or Prescriptions considered but not ordered:: none Medication administrations:: Medication Administration History Sodium Chloride (Ns) 1,000 mls @ 125 mls/hr IV .Q8H ONE Stop: 03/11/24 17:59 Last Infusion: 03/11/24 17:05 Dose: Infused Documented By: Admin: 03/11/24 11:02 Dose: 125 mls/hr Documented By: AM Discontinued Medications Morphine Sulfate (Morphine Sulf Inj 10 Mg/Ml Vial) 4 mg IVP X1 ONE Stop: 03/11/24 10:04 Last Admin: 03/11/24 10:54 Dose: Not Given Documented By: AM Non-Admin Reason: Patient Refused Morphine Sulfate (Morphine Sulf Inj 10 Mg/Ml Vial) 2 mg IVP X1 ONE Stop: 03/11/24 10:56 Last Admin: 03/11/24 11:06 Dose: 2 mg Documented By: AM Ondansetron HCl (Ondansetron Inj 2 Mg/Ml Inj 2 Ml) 4 mg IV X1 ONE; Protocol Stop: 03/11/24 10:04 Last Admin: 03/11/24 11:03 Dose: 4 mg Documented By: AM see above if any Consultations Consultation(s) initiated? (list below): No Diagnosis Differential diagnosis abdominal pain: calculus of kidney, constipation, diverticulitis, gastroenteritis and small bowel obstruction Most likely diagnosis given after review of the tests above:: Kidney stone. Constipation. Admission Indicated Admission indicated?: not indicated Admission Request Was there a request for admission?: No Disposition Plan Disposition Plan: Discharge Discharge Attestation Discharge Attestation: The patient and all family members were given an opportunity to ask questions and understood the discharge instructions. Discharge instructions specifically effects, indications for sooner follow up or return to the emergency department, and the expected course of current diagnosis. Patient condition: Stable Discharge Plan Plan Patient Disposition: HOME (Self Care) Disposition Comment: Stable to go home Prescriptions/Referrals Prescriptions/Med Rec: New docusate sodium [Dulcolax Stool Softener (dss)] 100 mg capsule 100 mg PO BID PRN (Reason: constipation) Qty: 20 0RF docusate sodium [Dulcolax Stool Softener (dss)] 100 mg capsule 100 mg PO BID PRN (Reason: constipation) Qty: 20 0RF No Action Eliquis 2.5 mg tablet 2.5 mg PO BID Qty: 60 0RF potassium chloride 20 mEq tablet extended release 20 meq PO QDAY Qty: 7 0RF furosemide [Lasix] 20 mg tablet 20 mg PO QAM Qty: 7 0RF alendronate 70 mg tablet 70 mg PO QWEEK Patient Comments: TAKE 1 TABLET BY MOUTH WEEKLY 30 MINUTES BEFORE FIRST FOOD OR BEVERAGE OR MEDICINE OF THE DAY WITH WATER ciprofloxacin HCl [Cipro] 500 mg tablet 500 mg PO BID Qty: 14 0RF ondansetron 4 mg tablet,disintegrating 4 mg PO Q8H Qty: 10 0RF meloxicam 7.5 mg tablet 7.5 mg PO QDAY Qty: 10 0RF levothyroxine 50 mcg tablet 50 mcg PO QDAY Patient Comments: TAKE 1 TABLET BY MOUTH ONCE 30 MINUTES BEFORE BREAKFAST cilostazol 50 mg tablet 50 mg PO QDAY Patient Comments: TAKE 1 TABLET BY MOUTH TWICE DAILY isosorbide mononitrate 30 mg tablet extended release 24 hr 30 mg PO QAM Patient Comments: TAKE 1 TABLET BY MOUTH EVERY DAY IN THE MORNING carvedilol 6.25 mg tablet 6.25 mg PO BID Patient Comments: TAKE 1 TABLET BY MOUTH TWICE DAILY amiodarone [Pacerone] 200 mg Tablet 200 mg PO QDAY melatonin 3 mg Tablet 6 mg PO QPM amlodipine [Norvasc] 5 mg Tablet 5 mg PO 2XD pantoprazole [Protonix] 40 mg Tablet,Delayed Release (Dr/Ec) 40 mg PO 1XD gabapentin [Neurontin] 300 mg Capsule 300 mg PO 2XD hydroxyzine HCl 10 mg Tablet 10 mg PO QPM PRN (Reason: Itching) rosuvastatin 10 mg Tablet 10 mg PO QPM revefenacin 175 mcg/3 mL Solution For Nebulization 175 mcg INHALATION 1XD insulin degludec [Tresiba U-100 Insulin] 100 unit/mL Solution 100 unit SUBCUT QPM naproxen [Naprosyn] 500 mg tablet 500 mg PO BID PRN (Reason: pain) Qty: 14 0RF meloxicam 15 mg tablet 15 mg PO QDAY Qty: 14 0RF Referrals: Rishabh Lewis MD [Primary Care Provider] - In 1 week Problem List Clinical Impression: Constipation, Abdominal pain, Calculus of kidney Patient/Caregiver Discharge Instructions Education Materials: ED Constipation (Adult), ED Kidney Stone Undescended No ... Additional Instructions: Medication as prescribed constipation. Follow-up with her medical doctor in 3 days. Please show her doctor copy of the CT report that I gave you. Return to nearest ER if condition worsens or if new symptoms develop especially fever. Print Language: [place] Stand Alone Forms: Karen Award Info., Patient Portal Info Letter
[2024-03-11 09:55] VITALS: BP 119/80; PULSE 102; RESP 18; TEMP 36.9; O2SAT 96
--- NOTE | 2024-03-11 10:00 | XR_ITS ---
Examination: CT abdomen with intravenous contrast CT pelvis with intravenous contrast 2-D coronal reconstructions 2-D sagittal reconstructions Date and time of exam:March 11 2024-0 2 hours Comparison March 08, 2024 Indications: Abdominal pain, unable to urinate, constipation 2 weeks, 4 mm nonobstructing left renal calculus on CT abdomen pelvis without contrast March 08, 2024. CTDI: vol (mGy) 19.9 DLP: (mGycm) 685 Technique: Multiple axial sections of the abdomen and pelvis have been obtained. 64 slice high-resolution scanner used. 3 mm axial sections have been obtained, post intravenous injection 60 cc Isovue-370 2-D sagittal, coronal reconstructions obtained. Low dose protocols were performed. One or more of the following dose reduction techniques were used; automated exposure control, adjustment of the mA and/or KV according to patient size, use of iterative reconstruction technique. Findings: Bilateral small subcentimeter soft pulmonary nodules in both lower lobes No visualized liver or splenic lesion Gallbladder is not visualized No extrahepatic biliary tract dilatation No pancreatic or adrenal mass 3 mm nonobstructing left renal calculus, no hydronephrosis or ureteral calculi Aorta normal size Abundant stool in the right colon Normal appendix There are fluid distended small bowel loops in the left lower abdomen axial image 152 Colonic diverticulosis, no definite diverticulitis Atrophic retroverted uterus Severe osteopenia with osteoporotic compressions L4 L3 L2 Right hip arthroplasty Advanced narrowing left hip joint Mild cellulitis pattern in the subcutaneous fatty tissue buttock region axial image 216, no soft tissue abscess Urinary Lima catheter in the bladder Impression: Bilateral subcentimeter soft pulmonary nodules in both lower lobes, consider CT chest without contrast follow-up No extrahepatic biliary tract dilatation 3 mm nonobstructing left renal calculus, no hydronephrosis or ureteral calculi Fluid distended small bowel loops in the left lower abdomen, consider ileus, enteritis such as Crohn's disease Severe osteopenia Chronic appearing osteoporotic compressions L4, L3, L2 Advanced left hip osteoarthritis
[2024-03-11 10:29] LABS: Collection Type, Urine Catheter
[2024-03-11 10:39] LABS: Beta Hydroxybutyrate 0.3 mmol/L (<0.6)
[2024-03-11 10:44] VITALS: BMI 33.7
[2024-03-11 10:45] LABS: Basophils % (Auto) 0 % (0-2.5); Eosinophils # (Auto) 0.1 Thou/mm3 (0.0-0.5); Eosinophils % (Auto) 2 % (0-10); Hemoglobin 11.9 g/dL (12.0-16.0); Immature Granulocytes % (Auto) 1 % (0-0); Immature Granulocytes Auto 0.05 Thou/mm3 (0.00-0.00); Lymphocytes # (Auto) 1.9 Thou/mm3 (1.0-4.8); Lymphocytes % (Auto) 23 % (10-50); Mean Corpuscular Hemoglobin 30.5 pg (25.0-35.0); Mean Corpuscular Volume 87 fL (80-100); Monocytes # (Auto) 0.6 Thou/mm3 (0.0-0.8); Monocytes % (Auto) 7 % (0-12); Neutrophils # (Auto) 5.5 Thou/mm3 (1.8-7.7); Neutrophils % (Auto) 68 % (37-80); Nucleated Red Blood Cell % 0 /100 WBC (0); Platelet Count 364 Thou/mm3 (140-440); RDW Standard Deviation 44.2 fL (36.4-46.3); White Blood Count 8.1 Thou/mm3 (3.6-11.0)
[2024-03-11 10:48] LABS: Bilirubin,Urine Negative (Negative); Blood,Urine Negative (Negative); Clarity,Urine Clear (Clear/Hazy); Color,Urine Lt-Yellow (Lt Yel-Yel); Culture Indicated,Urine Not Indicated; Glucose, Urine Negative (Negative); Ketones,Urine Negative (Negative); Leukocyte Esterase,Urine Negative (Negative); Nitrite,Urine Negative (Negative); Protein,Urine Negative (Neg - Trace); RBC,Urine 1 /hpf (0-3); Specific Gravity,Urine 1.015 (1.001-1.035); Squamous Epithelial Cell,Urine < 1 /hpf (0-5); Urobilinogen,Urine Negative mg/dL (0.0-1.0); WBC,Urine < 1 /hpf (0-5)
[2024-03-11 11:01] LABS: Alanine Aminotransferase 15 U/L (10-49); Albumin, Serum 4.4 gm/dL (3.4-4.8); Albumin/Globulin Ratio 1.8 (1.2-2.2); Alkaline Phosphatase 218 U/L (46-116); Anion Gap 10 (7-16); Aspartate Amino Transferase 23 U/L (0-34); BUN/Creatinine Ratio 10 Ratio (12-20); Bilirubin,Total 0.6 mg/dL (0.3-1.2); Blood Urea Nitrogen 8 mg/dL (9-23); Calcium 9.7 mg/dL (8.3-10.6); Calcium (Corrected) 9.7 mg/dL (8.5-10.1); Carbon Dioxide 26.1 mMol/L (20.0-31.0); Chloride 98 mMol/L (98-107); Creatinine (Component) 0.8 mg/dL (0.6-1.3); Estimated Creatinine Clearance 45.9 mL/min (>60); Globulin 2.5 gm/dL (2.3-3.5); Glucose 133 mg/dL (74-106); Lipase 31 U/L (12-53); Osmolality,Calculated 268 (275-295); Potassium 3.3 mMol/L (3.4-5.1); Sodium 134 mMol/L (136-145); Total Protein 6.9 gm/dL (5.7-8.2); eGFR > 60 See Note
[2024-03-11] MEDS: SODIUM CHLORIDE 0.9% 1000 ML 1,000 ML 125 ML IV (11:02)
[2024-03-11] MEDS: ONDANSETRON INJ 2 MG/ML INJ 2 ML 4 MG IV (11:03)
[2024-03-11] MEDS: MORPHINE SULF INJ 10 MG/ML VIAL 2 MG IVP (11:06)
[2024-03-11 12:29] VITALS: BP 121/68; PULSE 97; RESP 18; TEMP 36.7; O2SAT 96
[2024-03-11 15:30] VITALS: BP 123/69; PULSE 86; RESP 18; TEMP 36.6; O2SAT 96
[2024-03-11 18:42] VITALS: BP 130/60; PULSE 92; RESP 18; TEMP 36.6; O2SAT 96
== END 2024-03-11 18:43 | disposition home or self-care (01) ==
PROVIDERS: Emergency Provider Emergency Medicine; PCP Family Medicine
DX: K59.00 Constipation, unspecified (principal); N20.0 Calculus of kidney
CPT/HCPCS: 36415; 74177; 80053; 81001; 82010; 83690; 85025; 96361; 96374; 96375; 99285; A4649; J2270; J2405; J7030; Q9967

== ENCOUNTER 2024-03-26 12:20 | Emergency (ER) | payer MEDICARE, MEDICAID, SELFPAY ==
[2024-03-26 12:46] VITALS: BP 128/64; PULSE 88; RESP 21; TEMP 36.4; O2SAT 98
[2024-03-26 12:47] VITALS: PULSE 68; RESP 20; O2SAT 96
--- NOTE | 2024-03-26 13:37 | EDNOTE_ITS ---
ED General RME/HPI General Chief complaint: General Adult/Misc Complain Stated complaint: body aches Time Seen by Provider: 03/26/24 13:04 Arrival date/time: 03/26/24 12:20 CC: Body aches headache right sided neck pain chest pain HPI ongoing for 2 weeks EMS reports stable vital signs and route. Patient is afebrile nontoxic- appearing not in any acute distress. Related Data Home Medications ?Medication ?Instructions ?Recorded ?Confirmed cilostazol 50 mg tablet 50 mg PO QDAY 04/30/22 09/15/23 isosorbide mononitrate 30 mg 30 mg PO QAM 04/30/22 09/15/23 tablet,extended release 24 hr levothyroxine 50 mcg tablet 50 mcg PO QDAY 04/30/22 09/15/23 amiodarone 200 mg tablet (Pacerone) 200 mg PO QDAY 02/17/23 09/15/23 amlodipine 5 mg tablet (Norvasc) 5 mg PO 2XD 02/17/23 09/15/23 carvedilol 6.25 mg tablet 6.25 mg PO BID 02/17/23 09/15/23 gabapentin 300 mg capsule 300 mg PO 2XD 02/17/23 09/15/23 (Neurontin) hydroxyzine HCl 10 mg tablet 10 mg PO QPM PRN Itching 02/17/23 09/15/23 insulin degludec 100 unit/mL 100 unit subcut QPM 02/17/23 02/17/23 subcutaneous solution (Tresiba U-100 Insulin) melatonin 3 mg tablet 6 mg PO QPM 02/17/23 09/15/23 pantoprazole 40 mg tablet,delayed 40 mg PO 1XD 02/17/23 09/15/23 release (Protonix) revefenacin 175 mcg/3 mL solution 175 mcg inhalation 1XD 02/17/23 02/17/23 for nebulization rosuvastatin 10 mg tablet 10 mg PO QPM 02/17/23 09/15/23 alendronate 70 mg tablet 70 mg PO QWEEK 09/15/23 09/15/23 Previous Rx's ?Medication ?Instructions ?Recorded apixaban 2.5 mg tablet (Eliquis) 2.5 mg PO BID #60 tabs 06/10/20 furosemide 20 mg tablet (Lasix) 20 mg PO QAM #7 tabs 02/26/23 potassium chloride 20 mEq 20 meq PO QDAY #7 tabs 02/26/23 tablet,extended release naproxen 500 mg tablet (Naprosyn) 500 mg PO BID PRN pain #14 tabs 05/27/23 meloxicam 15 mg tablet 15 mg PO QDAY #14 tabs 07/30/23 ciprofloxacin HCl 500 mg tablet 500 mg PO BID #14 tabs 02/20/24 (Cipro) meloxicam 7.5 mg tablet 7.5 mg PO QDAY #10 tabs 02/20/24 ondansetron 4 mg disintegrating 4 mg PO Q8H #10 tabs 02/20/24 tablet docusate sodium 100 mg capsule 100 mg PO BID PRN constipation #20 03/11/24 (Dulcolax Stool Softener caps (docusate)) docusate sodium 100 mg capsule 100 mg PO BID PRN constipation #20 03/11/24 (Dulcolax Stool Softener caps (docusate)) Allergies Allergy/AdvReac Type Severity Reaction Status Date / Time No Known Allergies Allergy Verified 03/26/24 14:15 Review of Systems Review of Systems Narrative Review of Systems: GEN: No fever, no chills, no weight loss EYES: No discharge, no visual changes, no pain HEENT: No ear pain, no congestion, no sore throat, +neck pain PULM: No shortness of breath, no cough, no congestion CV: + chest pain, no dyspnea on exertion, no palpitations GI: No nausea, no vomiting, no diarrhea, no pain, no constipation : No frequency, no urgency, no dysuria MUSC/SKEL: No joint pain, no back pain SKIN: No rash PSYCH: No hallucinations, no depression HEME/LYMPH: No easy bleeding or bruising tendencies NEURO: No weakness, no headache Past Medical History Past Medical History NEUROLOGIC: Positive Neurological Disorders and Transient Ischemic Attacks (TIA); Negative Seizures CARDIAC: Positive Cardiac Disorders, Atrial Fibrillation, Coronary Artery Disease, Hypercholesterolemia, Congestive Heart Failure, Hypertension and Varicose Veins; Negative Deep Vein Thrombosis RESPIRATORY: Positive Asthma, Bronchitis and Pneumonia; Negative Chronic Obstructive Pulmonary Disease (COPD) GASTROINTESTINAL: Positive Gastrointestinal Disorders, Gastrointestinal Bleed and Obesity GENITOURINARY: Negative Genitourinary Disorders or Renal Disease REPRODUCTIVE: Positive Previous Pregnancies; Negative Pelvic Inflammatory Disease MUSCULOSKELETAL: Positive Musculoskeletal Disorders, Arthritis and Rheumatoid Arthritis ENT: Positive Cataracts and Deafness ENDOCRINE: Positive Endocrine Disorders and Diabetes Mellitus Type 2; Negative Diabetes Mellitus Type 1 HEMATOLOGIC: Positive Anemia; Negative Blood Disorders, Sickle Cell Disease or Clotting Problems PSYCHO/SOCIAL: Negative Anxiety OTHER HISTORY: Positive Falls; Negative Hospitalization, Blood Transfusions or Anesthesia Reactions Family History FAMILY HISTORY: Negative Family Neurologic Problems, Family Psychiatric Problems, Family Respiratory Disorders, Family Cardiac Disorders, Family Gastrointestinal Problems, Family Cancer, Family Surgery or Family Anesthesia Reaction Surgical History SURGICAL: Positive Cardiac Catheterization, Angiogram, Eye Surgery and Abdominal Surgery; Negative Endocrine Surgery Social History SMOKING STATUS: Never smoker SECOND HAND EXPOSURE: No SUBSTANCE USE: does not use ED Exam Narrative Physical exam: [General: Obese not in cot no acute distress Head normocephalic HEENT: Within acceptable limits Neck is supple nontender Chest equal chest rise nontender to palpation Respiratory: Clear to auscultation no wheezes crackles or rubs CV: Rate rhythm is regular no murmurs rubs or clicks Abdomen is distended secondary to body habitus soft nontender no masses positive bowel sounds all 4 quadrants Back: No CVA tenderness no spinous process tenderness from cervical spine thoracic and lumbar spine Skin: Intact no petechiae rash induration ulceration or crepitus Extremities: Moving all extremity against resistance cap refill less than 2 seconds neurosensory intact Neuro: Awake alert oriented x3 Glascow coma 15 no focal deficits] Course Quality Measures none Orders Category Date Time Status Bedside Influenza A&B Antigen Test NOW Care 03/26/24 13:37 Completed EKG (ED ONLY) *Do not use* NOW Care 03/26/24 13:37 Completed EKG (ED Only) Stat Exams 03/26/24 13:37 Draft XR chest 1V Stat Exams 03/26/24 13:37 Completed B-Type Natriuretic Peptide Stat Lab 03/26/24 13:55 Completed CBC Stat Lab 03/26/24 13:55 Completed Comprehensive Metabolic Panel Stat Lab 03/26/24 13:55 Completed Drug Screen,Urine Stat Lab 03/26/24 14:33 Completed LDH (Lactate Dehydrogenase) Stat Lab 03/26/24 13:55 Completed Magnesium Stat Lab 03/26/24 13:55 Completed Partial Thromboplastin Time Stat Lab 03/26/24 13:55 Completed Prothrombin Time with INR Stat Lab 03/26/24 13:55 Completed Troponin I Stat Lab 03/26/24 10:21 Completed Troponin I Stat Lab 03/26/24 13:55 Completed Urinalysis Stat Lab 03/26/24 14:38 Completed Acetaminophen Tab [Tylenol Tab] Med 03/26/24 15:34 Discontinued 650 mg PO X1 ONE Vital Signs Vital signs: Vital Signs Temperature 97.5 F 03/26/24 12:46 Pulse Rate 88 03/26/24 12:46 Respiratory Rate 21 H 03/26/24 12:46 Blood Pressure 128/64 03/26/24 12:46 Pulse Oximetry (%) 98 03/26/24 12:46 Oxygen Delivery Method Room Air 03/26/24 12:46 [facility] Patient data External records reviewed:: [facility] previous records and EMS form Clinical information provided by:: patient and EMS Social determinants that could affect healthcare access:: none Patient has the following chronic illnesses:: Anemia hypertension hyperlipidemia diabetes coronary artery disease CHF How is presenting disease/condition affected by chronic disease/condition?: u neffected by Evaluation data The following diagnostics were reviewed and interpreted by me:: lab results, radiology exam(s) and EKG tracing(s) Lab and/or radiology exams considered but not ordered:: EKG performed at 1437 shows a ventricular rate of 86 NH interval 165 QRS of 150 QTc of 486 sinus rhythm right axis deviation. Right bundle branch block. CBC shows WBCs at 9.5 with H&H of 11.7 and 33.9 with platelets of 294 CMP shows a sodium of 134 potassium 3.3 chloride of 98 CO2 of 29.0 BUN of 7 creatinine of 0.7 glucose of 298 Magnesium 1.6 Troponin negative BNP of 70 UDS is negative Delta troponin is negative. Interpretation Summary: Patient has a wide variety of EQ's complaints, heart score at 3, repeat troponin is negative patient will be discharged home. Medications Medications considered but not ordered:: None Medication administrations:: Medication Administration History Discontinued Medications Acetaminophen (Acetaminophen 325 Mg Tablet) 650 mg PO X1 ONE Stop: 03/26/24 15:35 Last Admin: 03/26/24 15:41 Dose: 650 mg Documented By: AM None Consultations Consultation(s) initiated? (list below): No Diagnosis Differential Diagnosis ED Complaint MDM: ACS [place] pneumonia Most likely diagnosis given after review of the tests above:: Body aches neck pain Admission Indicated Admission indicated?: not indicated Explain why admission is indicated or not indicated:: Stable for discharge Admission Request Was there a request for admission?: No Disposition Plan Disposition Plan: Discharge Discharge Attestation Discharge Attestation: The patient and all family members were given an opportunity to ask questions and understood the discharge instructions. Discharge instructions specifically effects, indications for sooner follow up or return to the emergency department, and the expected course of current diagnosis. Patient condition: Stable Medical Decision Making Differential Diagnosis Differential Diagnosis: ACS [place] pneumonia Lab Data 03/26/24 13:55 03/26/24 13:55 Labs: Lab Results 03/26/24 03/26/24 03/26/24 Range/Units 10:21 13:55 14:33 WBC 9.5 (3.6-11.0) Thou/mm3 RBC 3.92 L (4.00-5.20) Miln/mm3 Hgb 11.7 L (12.0-16.0) g/dL Hct 33.9 L (36.0-46.0) % MCV 87 (80-100) fL MCH 29.8 (25.0-35.0) pg MCHC 34.5 (31.0-37.0) g/dl RDW Std Deviation 42.7 (36.4-46.3) fL Plt Count 294 D (140-440) Thou/mm3 Neut % (Auto) 69 (37-80) % Lymph % (Auto) 22 (10-50) % [place] % (Auto) 7 (0-12) % Eos % (Auto) 1 (0-10) % Baso % (Auto) 0 (0-2.5) % Neut # (Auto) 6.5 (1.8-7.7) Thou/mm3 Lymph # (Auto) 2.1 (1.0-4.8) Thou/mm3 [place] # (Auto) 0.7 (0.0-0.8) Thou/mm3 Eos # (Auto) 0.1 (0.0-0.5) Thou/mm3 Baso # (Auto) 0.0 (0.0-0.2) Thou/mm3 Immature Gran # (Auto) 0.06 H (0.00-0.00) Thou/mm3 Absolute Nucleated RBC 0.02 H (0.00-0.00) Thou/mm3 Immature Gran % 1 H (0-0) % Nucleated RBC % 0 (0) /100 WBC PT 11.4 (9.0-12.2) Seconds INR 1.0 (0.9-1.3) APTT 32.0 (22.0-36.0) Seconds Sodium 134 L (136-145) mMol/L Potassium 3.3 L (3.4-5.1) mMol/L Chloride 98 (98-107) mMol/L Carbon Dioxide 29.0 (20.0-31.0) mMol/L Anion Gap 7 (7-16) BUN 7 L (9-23) mg/dL Creatinine 0.7 (0.6-1.3) mg/dL Estim Creat Clear Calc 55.7 L (>60) mL/min eGFR > 60 (60 - ) See Note BUN/Creatinine Ratio 10 L (12-20) Ratio Glucose 298 H (74-106) mg/dL Calculated Osmolality 277 (275-295) Calcium 9.2 (8.3-10.6) mg/dL Corrected Calcium 9.3 (8.5-10.1) mg/dL Magnesium 1.6 (1.6-2.6) mg/dL Total Bilirubin 0.6 (0.3-1.2) mg/dL AST 26 (0-34) U/L ALT 14 (10-49) U/L Alkaline Phosphatase 187 H (46-116) U/L Lactate Dehydrogenase 226 (120-246) U/L Troponin I < 0.020 < 0.020 (0.0-0.045) ng/mL B-Natriuretic Peptide 70 (0-100) pg/mL Total Protein 6.4 (5.7-8.2) gm/dL Albumin 3.9 (3.4-4.8) gm/dL Globulin 2.5 (2.3-3.5) gm/dL Albumin/Globulin Ratio 1.6 (1.2-2.2) Ur Collection Type Urine Color (Lt Yel-Yel) Urine Clarity (Clear/Hazy) Urine pH (5.0-7.0) Ur Specific [place] (1.001-1.035) Urine Protein (Neg - Trace) Urine Glucose (UA) (Negative) Urine Ketones (Negative) Urine Blood (Negative) Urine Nitrite (Negative) Urine Bilirubin (Negative) Urine Urobilinogen (Auto) (0.0-1.0) mg/dL Ur Leukocyte Esterase (Negative) Urine RBC (0-3) /hpf Urine WBC (0-5) /hpf Ur Squamous Epith Cells (0-5) /hpf Urine Bacteria (None) Urine Opiates Screen Negative (Negative) Urine Fentanyl Screen Negative (Negative) Ur Barbiturates Screen Negative (Negative) U Amphetamin/Meth Scrn Negative (Negative) U Benzodiazepines Scrn Negative (Negative) U Cocaine Metab Screen Negative (Negative) U Marijuana (THC) Screen Negative (Negative) 03/26/24 Range/Units 14:38 WBC (3.6-11.0) Thou/mm3 RBC (4.00-5.20) Miln/mm3 Hgb (12.0-16.0) g/dL Hct (36.0-46.0) % MCV (80-100) fL MCH (25.0-35.0) pg MCHC (31.0-37.0) g/dl RDW Std Deviation (36.4-46.3) fL Plt Count (140-440) Thou/mm3 Neut % (Auto) (37-80) % Lymph % (Auto) (10-50) % [place] % (Auto) (0-12) % Eos % (Auto) (0-10) % Baso % (Auto) (0-2.5) % Neut # (Auto) (1.8-7.7) Thou/mm3 Lymph # (Auto) (1.0-4.8) Thou/mm3 [place] # (Auto) (0.0-0.8) Thou/mm3 Eos # (Auto) (0.0-0.5) Thou/mm3 Baso # (Auto) (0.0-0.2) Thou/mm3 Immature Gran # (Auto) (0.00-0.00) Thou/mm3 Absolute Nucleated RBC (0.00-0.00) Thou/mm3 Immature Gran % (0-0) % Nucleated RBC % (0) /100 WBC PT (9.0-12.2) Seconds INR (0.9-1.3) APTT (22.0-36.0) Seconds Sodium (136-145) mMol/L Potassium (3.4-5.1) mMol/L Chloride (98-107) mMol/L Carbon Dioxide (20.0-31.0) mMol/L Anion Gap (7-16) BUN (9-23) mg/dL Creatinine (0.6-1.3) mg/dL Estim Creat Clear Calc (>60) mL/min eGFR (60 - ) See Note BUN/Creatinine Ratio (12-20) Ratio Glucose (74-106) mg/dL Calculated Osmolality (275-295) Calcium (8.3-10.6) mg/dL Corrected Calcium (8.5-10.1) mg/dL Magnesium (1.6-2.6) mg/dL Total Bilirubin (0.3-1.2) mg/dL AST (0-34) U/L ALT (10-49) U/L Alkaline Phosphatase (46-116) U/L Lactate Dehydrogenase (120-246) U/L Troponin I (0.0-0.045) ng/mL B-Natriuretic Peptide (0-100) pg/mL Total Protein (5.7-8.2) gm/dL Albumin (3.4-4.8) gm/dL Globulin (2.3-3.5) gm/dL Albumin/Globulin Ratio (1.2-2.2) Ur Collection Type Clean Catch Urine Color Colorless A (Lt Yel-Yel) Urine Clarity Clear (Clear/Hazy) Urine pH 7.5 H (5.0-7.0) Ur Specific [place] 1.007 (1.001-1.035) Urine Protein Negative (Neg - Trace) Urine Glucose (UA) 2+ A (Negative) Urine Ketones Negative (Negative) Urine Blood Negative (Negative) Urine Nitrite Negative (Negative) Urine Bilirubin Negative (Negative) Urine Urobilinogen (Auto) Negative (0.0-1.0) mg/dL Ur Leukocyte Esterase Negative (Negative) Urine RBC 0 (0-3) /hpf Urine WBC 1 (0-5) /hpf Ur Squamous Epith Cells 0 (0-5) /hpf Urine Bacteria None (None) Urine Opiates Screen (Negative) Urine Fentanyl Screen (Negative) Ur Barbiturates Screen (Negative) U Amphetamin/Meth Scrn (Negative) U Benzodiazepines Scrn (Negative) U Cocaine Metab Screen (Negative) U Marijuana (THC) Screen (Negative) Discharge Plan Plan Patient Disposition: HOME (Self Care) Patient condition on transfer: Stable Prescriptions/Referrals Prescriptions/Med Rec: No Action Eliquis 2.5 mg tablet 2.5 mg PO BID Qty: 60 0RF potassium chloride 20 mEq tablet extended release 20 meq PO QDAY Qty: 7 0RF furosemide [Lasix] 20 mg tablet 20 mg PO QAM Qty: 7 0RF alendronate 70 mg tablet 70 mg PO QWEEK Patient Comments: TAKE 1 TABLET BY MOUTH WEEKLY 30 MINUTES BEFORE FIRST FOOD OR BEVERAGE OR MEDICINE OF THE DAY WITH WATER ciprofloxacin HCl [Cipro] 500 mg tablet 500 mg PO BID Qty: 14 0RF ondansetron 4 mg tablet,disintegrating 4 mg PO Q8H Qty: 10 0RF meloxicam 7.5 mg tablet 7.5 mg PO QDAY Qty: 10 0RF levothyroxine 50 mcg tablet 50 mcg PO QDAY Patient Comments: TAKE 1 TABLET BY MOUTH ONCE 30 MINUTES BEFORE BREAKFAST cilostazol 50 mg tablet 50 mg PO QDAY Patient Comments: TAKE 1 TABLET BY MOUTH TWICE DAILY isosorbide mononitrate 30 mg tablet extended release 24 hr 30 mg PO QAM Patient Comments: TAKE 1 TABLET BY MOUTH EVERY DAY IN THE MORNING carvedilol 6.25 mg tablet 6.25 mg PO BID Patient Comments: TAKE 1 TABLET BY MOUTH TWICE DAILY amiodarone [Pacerone] 200 mg Tablet 200 mg PO QDAY melatonin 3 mg Tablet 6 mg PO QPM amlodipine [Norvasc] 5 mg Tablet 5 mg PO 2XD pantoprazole [Protonix] 40 mg Tablet,Delayed Release (Dr/Ec) 40 mg PO 1XD gabapentin [Neurontin] 300 mg Capsule 300 mg PO 2XD hydroxyzine HCl 10 mg Tablet 10 mg PO QPM PRN (Reason: Itching) rosuvastatin 10 mg Tablet 10 mg PO QPM revefenacin 175 mcg/3 mL Solution For Nebulization 175 mcg INHALATION 1XD insulin degludec [Tresiba U-100 Insulin] 100 unit/mL Solution 100 unit SUBCUT QPM naproxen [Naprosyn] 500 mg tablet 500 mg PO BID PRN (Reason: pain) Qty: 14 0RF meloxicam 15 mg tablet 15 mg PO QDAY Qty: 14 0RF docusate sodium [Dulcolax Stool Softener (dss)] 100 mg capsule 100 mg PO BID PRN (Reason: constipation) Qty: 20 0RF docusate sodium [Dulcolax Stool Softener (dss)] 100 mg capsule 100 mg PO BID PRN (Reason: constipation) Qty: 20 0RF Referrals: Usha Sterling PA-C [Primary Care Provider] - In 1 week Problem List Clinical Impression: Body aches, Chest pain, Neck pain Patient/Caregiver Discharge Instructions Education Materials: ED Chest Pain, Uncertain Cause, ED Neck Pain Additional Instructions: Take ibuprofen or Tylenol for pain of his worsening of symptoms follow-up with your primary care doctor return the emergency room for reevaluation. Print Language: Urdu Stand Alone Forms: Karen Award Info., Patient Portal Info Letter PA/MARTIN Supervising Physician PA/MARTIN Supervising Physician: Zuhair Owens ENP
--- NOTE | 2024-03-26 13:37 | EKG_ITS ---
[facility] Test Date: 2024-03-26 Pat Name: ALANNA Savagepartment: Room: - Gender: Female Information Technology Specialist: : [id number] Requested By: Zuhair Coronel Order Number: [id number] Reading MD: Zuhair Coronel Measurements Intervals [place] Rate: 86 P: 71 TN: 165 QRS: 114 QRSD: 150 T: 0 QT: 443 QTc: 532 Interpretive Statements SINUS RHYTHM MARKED RIGHT AXIS DEVIATION [QRS AXIS > 100] RIGHT BUNDLE BRANCH BLOCK [120+ ms QRS DURATION, UPRIGHT V1, 40+ ms S IN I/aVL/V4/V5/V6] Compared to ECG 02/20/2024 11:20:05 Right-axis deviation now present Indeterminate axis no longer present /store/S0/[id number].pdf
--- NOTE | 2024-03-26 13:37 | XR_ITS ---
Examination: AP chest single view Technique one AP portable semiupright chest single view Exam date and time: March 26, 1999 2544 hours Comparison March 08, 2024 Indications: Shortness breath chest pain today. Findings: Mild enlargement cardiac contour Moderate vascular congestion No lobar pneumonia Prominent osteopenia Impression: Suspicious for early heart failure
[2024-03-26 14:11] VITALS: BMI 30.1
[2024-03-26 14:12] LABS: Basophils % (Auto) 0 % (0-2.5); Eosinophils # (Auto) 0.1 Thou/mm3 (0.0-0.5); Eosinophils % (Auto) 1 % (0-10); Hematocrit 33.9 % (36.0-46.0); Hemoglobin 11.7 g/dL (12.0-16.0); Immature Granulocytes % (Auto) 1 % (0-0); Immature Granulocytes Auto 0.06 Thou/mm3 (0.00-0.00); Lymphocytes # (Auto) 2.1 Thou/mm3 (1.0-4.8); Lymphocytes % (Auto) 22 % (10-50); Mean Corpuscular HGB Conc 34.5 g/dl (31.0-37.0); Mean Corpuscular Hemoglobin 29.8 pg (25.0-35.0); Mean Corpuscular Volume 87 fL (80-100); Monocytes # (Auto) 0.7 Thou/mm3 (0.0-0.8); Monocytes % (Auto) 7 % (0-12); Neutrophils # (Auto) 6.5 Thou/mm3 (1.8-7.7); Neutrophils % (Auto) 69 % (37-80); Nucleated Red Blood Cell # 0.02 Thou/mm3 (0.00-0.00); Nucleated Red Blood Cell % 0 /100 WBC (0); Platelet Count 294 Thou/mm3 (140-440); RDW Standard Deviation 42.7 fL (36.4-46.3); Red Blood Count 3.92 Miln/mm3 (4.00-5.20); White Blood Count 9.5 Thou/mm3 (3.6-11.0)
[2024-03-26 14:22] LABS: Prothrombin Time 11.4 Seconds (9.0-12.2)
[2024-03-26 14:24] LABS: B-Type Natriuretic Peptide 70 pg/mL (0-100)
[2024-03-26 14:26] LABS: Alanine Aminotransferase 14 U/L (10-49); Albumin, Serum 3.9 gm/dL (3.4-4.8); Anion Gap 7 (7-16); Aspartate Amino Transferase 26 U/L (0-34); BUN/Creatinine Ratio 10 Ratio (12-20); Bilirubin,Total 0.6 mg/dL (0.3-1.2); Blood Urea Nitrogen 7 mg/dL (9-23); Calcium 9.2 mg/dL (8.3-10.6); Calcium (Corrected) 9.3 mg/dL (8.5-10.1); Chloride 98 mMol/L (98-107); Creatinine (Component) 0.7 mg/dL (0.6-1.3); Estimated Creatinine Clearance 55.7 mL/min (>60); Glucose 298 mg/dL (74-106); LDH (Lactate Dehydrogenase) 226 U/L (120-246); Magnesium 1.6 mg/dL (1.6-2.6); Osmolality,Calculated 277 (275-295); Potassium 3.3 mMol/L (3.4-5.1); Sodium 134 mMol/L (136-145); Total Protein 6.4 gm/dL (5.7-8.2); Troponin I < 0.020 ng/mL (0.0-0.045); eGFR > 60 See Note
[2024-03-26 14:27] LABS: Albumin/Globulin Ratio 1.6 (1.2-2.2); Alkaline Phosphatase 187 U/L (46-116); Globulin 2.5 gm/dL (2.3-3.5)
[2024-03-26 14:35] VITALS: BP 123/60; PULSE 86; RESP 20; TEMP 36.6; O2SAT 97
[2024-03-26 15:27] LABS: Collection Type, Urine Clean Catch; RBC,Urine 0 /hpf (0-3); Squamous Epithelial Cell,Urine 0 /hpf (0-5)
[2024-03-26 15:38] LABS: Bilirubin,Urine Negative (Negative); Blood,Urine Negative (Negative); Clarity,Urine Clear (Clear/Hazy); Color,Urine Colorless (Lt Yel-Yel); Glucose, Urine 2+ (Negative); Ketones,Urine Negative (Negative); Leukocyte Esterase,Urine Negative (Negative); Nitrite,Urine Negative (Negative); PH,Urine 7.5 (5.0-7.0); Protein,Urine Negative (Neg - Trace); Specific Gravity,Urine 1.007 (1.001-1.035); Urobilinogen,Urine Negative mg/dL (0.0-1.0); WBC,Urine 1 /hpf (0-5)
[2024-03-26] MEDS: ACETAMINOPHEN 325 MG TABLET 650 MG PO (15:41)
[2024-03-26 15:45] LABS: Amphetamine/Methamp Scrn,U Negative (Negative); Barbiturate Screen,Urine Negative (Negative); Benzodiazepines Screen,Urine Negative (Negative); Benzoylecgonine Screen, Ur Negative (Negative); Fentanyl Screen,Urine Negative (Negative); Opiate Screen,Urine Negative (Negative); THC Screen,Urine Negative (Negative)
[2024-03-26 16:28] VITALS: BP 117/70; PULSE 83; RESP 24; TEMP 36.4; O2SAT 96
[2024-03-26 17:04] LABS: Troponin I < 0.020 ng/mL (0.0-0.045)
[2024-03-26 18:48] VITALS: BP 115/60; PULSE 84; RESP 21; TEMP 36.8; O2SAT 95
[2024-03-26 19:22] VITALS: BP 109/61; PULSE 84; RESP 17; O2SAT 96
== END 2024-03-26 19:00 | disposition home or self-care (01) ==
PROVIDERS: Registered Nurse General Practice; Emergency Provider Emergency Medicine; PCP Physician Assistant
DX: R07.9 Chest pain, unspecified (principal); M54.2 Cervicalgia
CPT/HCPCS: 36415; 71045; 80053; 80307; 81001; 83615; 83735; 83880; 84484; 85025; 85610; 85730; 87400; 93005; 99283; A9270

== ENCOUNTER → 2024-04-27 | Outpatient (CLI) | payer MEDICARE, SELFPAY ==
[2024-04-27 12:12] LABS: Urea Breath Test Negative (Negative)
[2024-04-27 15:16] LABS: RA Screen Negative (Negative)
[2024-05-01 07:04] LABS: PTT-LA Screen 32 seconds (< OR = 40); dRVVT Screen 38 seconds (< OR = 45)
[2024-05-10 22:03] LABS: Sjogren's antibody (SS-A) <1.0 NEG AI (<1.0 NEGATIVE); Sm Antibody <1.0 NEG AI (<1.0 NEGATIVE)
[2024-05-11 06:58] LABS: ANA Screen, IFA NEGATIVE (NEGATIVE); Complement Component C3* 151 mg/dL; Complement Component C4c* 27 mg/dL; DNA (ds) Antibody* <1 IU/mL; Mitochondrial Ab NEGATIVE (NEGATIVE); Myocardial Ab, IF NEGATIVE (NEGATIVE); Scl-70 Antibody* <1.0 NEG AI (<1.0 NEGATIVE); Sjogren's Antibody (SS-B) <1.0 NEG AI (<1.0 NEGATIVE); Sm/RNP Antibody <1.0 NEG AI (<1.0 NEGATIVE); Striated Muscle Ab NEGATIVE (NEGATIVE); Thyroid Peroxidase Antibodies* <1 IU/mL (<9)
[2024-05-11 07:00] LABS: Actin Antibody (IgG)* <20 U; Gastric Parietal Cell Ab* <20.0 U
== END | disposition home or self-care (01) ==
PROVIDERS: PCP Physician Assistant; Referring Provider Physician Assistant; Visit Provider Physician Assistant
DX: R11.0 Nausea (principal); M25.50 Pain in unspecified joint
CPT/HCPCS: 36415; 83013; 83014; 83516; 85613; 85730; 86015; 86038; 86160; 86225; 86235; 86255; 86376; 86430

== ENCOUNTER 2024-06-29 11:33 | Emergency (ER) | payer MEDICARE, MEDICAID, SELFPAY ==
[2024-06-29 11:34] VITALS: BMI 31.2
--- NOTE | 2024-06-29 12:06 | EDRME_ITS ---
Rapid Medical Screening Exam RME Arrival date/time: 06/29/24 11:33 88-year-old female with a history of hypertension, hyperlipidemia presents to the emergency room with a chief complaint of dysuria and right-sided flank pain x 4 days I have greeted and performed a focused initial assessment of this patient. A co mprehensive ED assessment and evaluation of the patient, analysis of all test results, and completion of the medical decision making process will be conducted by additional ED providers. Chief Complaint: Urogenital-Female Time Seen by Provider: 06/29/24 11:58 Vital signs reviewed by provider: Yes
--- NOTE | 2024-06-29 12:06 | XR_ITS ---
Examination: CT abdomen and pelvis without contrast. Coronal 3-D reconstructions. Sagittal 2-D reconstructions. Date and time of exam:June 29, 2024 1230 hours INDICATIONS: Painful urination beginning 8 days ago, history 3 mm left kidney stone on CT abdomen pelvis March 11, 2024 CTDI: vol (mGy): 10.3 DLP: (mGycm): 527 Technique: Axial images of the abdomen have been obtained, 3 mm slice thickness Intravenous contrast material has not been administered. Low dose protocols were performed. One or more of the following dose reduction techniques were used; automated exposure control, adjustment of the mA and/or KV according to patient size, use of iterative reconstruction technique. 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
[2024-06-29 12:10] VITALS: BP 117/77; PULSE 84; RESP 20; TEMP 36.6; O2SAT 97; BMI 31.8
[2024-06-29] MEDS: KETOROLAC INJ 60 MG/2 ML VIAL 30 MG IM (12:50)
[2024-06-29 12:53] LABS: Basophils % (Auto) 0 % (0-2.5); Eosinophils # (Auto) 0.1 Thou/mm3 (0.0-0.5); Eosinophils % (Auto) 1 % (0-10); Hematocrit 33.4 % (36.0-46.0); Hemoglobin 11.3 g/dL (12.0-16.0); Immature Granulocytes % (Auto) 2 % (0-0); Immature Granulocytes Auto 0.17 Thou/mm3 (0.00-0.00); Lymphocytes # (Auto) 1.8 Thou/mm3 (1.0-4.8); Lymphocytes % (Auto) 20 % (10-50); Mean Corpuscular HGB Conc 33.8 g/dl (31.0-37.0); Mean Corpuscular Hemoglobin 29.2 pg (25.0-35.0); Mean Corpuscular Volume 86 fL (80-100); Monocytes # (Auto) 0.6 Thou/mm3 (0.0-0.8); Monocytes % (Auto) 7 % (0-12); Neutrophils # (Auto) 6.3 Thou/mm3 (1.8-7.7); Neutrophils % (Auto) 70 % (37-80); Nucleated Red Blood Cell # 0.03 Thou/mm3 (0.00-0.00); Nucleated Red Blood Cell % 0 /100 WBC (0); Platelet Count 369 Thou/mm3 (140-440); RDW Standard Deviation 50.9 fL (36.4-46.3); Red Blood Count 3.87 Miln/mm3 (4.00-5.20); White Blood Count 8.9 Thou/mm3 (3.6-11.0)
[2024-06-29 13:08] LABS: Collection Type, Urine Clean Catch
[2024-06-29 13:13] LABS: Alanine Aminotransferase 21 U/L (10-49); Albumin, Serum 4.1 gm/dL (3.4-4.8); Albumin/Globulin Ratio 1.5 (1.2-2.2); Alkaline Phosphatase 214 U/L (46-116); Anion Gap 7 (7-16); Aspartate Amino Transferase 30 U/L (0-34); BUN/Creatinine Ratio 20 Ratio (12-20); Bilirubin,Total 0.6 mg/dL (0.3-1.2); Blood Urea Nitrogen 20 mg/dL (9-23); Calcium 9.1 mg/dL (8.3-10.6); Calcium (Corrected) 9.1 mg/dL (8.5-10.1); Chloride 100 mMol/L (98-107); Estimated Creatinine Clearance 35.6 mL/min (>60); Globulin 2.7 gm/dL (2.3-3.5); Glucose 344 mg/dL (74-106); Lipase 31 U/L (12-53); Osmolality,Calculated 290 (275-295); Sodium 137 mMol/L (136-145); Total Protein 6.8 gm/dL (5.7-8.2); eGFR 55 See Note
[2024-06-29 13:17] LABS: Bacteria,Urine 2+; Bilirubin,Urine Negative (Negative); Blood,Urine Negative (Negative); Color,Urine Drk-Yellow (Lt Yel-Yel); Glucose, Urine 3+ (Negative); Hyaline Casts,Urine < 1 /hpf (0-1); Ketones,Urine Negative (Negative); Leukocyte Esterase,Urine Positive (Negative); Nitrite,Urine Positive (Negative); Protein,Urine Negative (Neg - Trace); RBC,Urine 2 /hpf (0-3); Specific Gravity,Urine 1.016 (1.001-1.035); Squamous Epithelial Cell,Urine 4 /hpf (0-5); WBC,Urine 133 /hpf (0-5)
[2024-06-29 13:18] LABS: Clarity,Urine Hazy (Clear/Hazy)
--- NOTE | 2024-06-29 14:12 | PD.EDFMALE ---
ED Female Urogenital RME/HPI General Chief complaint: Urogenital-Female Stated complaint: URGENCY AND PAINFUL URINATION X8DAYS Time Seen by Provider: 06/29/24 11:58 Arrival date/time: 06/29/24 11:33 RME / HPI RME / HPI Narrative: 88-year-old female with a history of hypertension, hyperlipidemia presents to the emergency room with a chief complaint of dysuria and right-sided flank pain x 4 days Patient denies any fever denies any vomiting denies any other complaints no medication was taken prior to arrival. Related Data Home Medications ?Medication ?Instructions ?Recorded ?Confirmed cilostazol 50 mg tablet 50 mg PO QDAY 04/30/22 09/15/23 isosorbide mononitrate 30 mg 30 mg PO QAM 04/30/22 09/15/23 tablet,extended release 24 hr levothyroxine 50 mcg tablet 50 mcg PO QDAY 04/30/22 09/15/23 amiodarone 200 mg tablet (Pacerone) 200 mg PO QDAY 02/17/23 09/15/23 amlodipine 5 mg tablet (Norvasc) 5 mg PO 2XD 02/17/23 09/15/23 carvedilol 6.25 mg tablet 6.25 mg PO BID 02/17/23 09/15/23 gabapentin 300 mg capsule 300 mg PO 2XD 02/17/23 09/15/23 (Neurontin) hydroxyzine HCl 10 mg tablet 10 mg PO QPM PRN Itching 02/17/23 09/15/23 insulin degludec 100 unit/mL 100 unit subcut QPM 02/17/23 02/17/23 subcutaneous solution (Tresiba U-100 Insulin) melatonin 3 mg tablet 6 mg PO QPM 02/17/23 09/15/23 pantoprazole 40 mg tablet,delayed 40 mg PO 1XD 02/17/23 09/15/23 release (Protonix) revefenacin 175 mcg/3 mL solution 175 mcg inhalation 1XD 02/17/23 02/17/23 for nebulization rosuvastatin 10 mg tablet 10 mg PO QPM 02/17/23 09/15/23 alendronate 70 mg tablet 70 mg PO QWEEK 09/15/23 09/15/23 Previous Rx's ?Medication ?Instructions ?Recorded apixaban 2.5 mg tablet (Eliquis) 2.5 mg PO BID #60 tabs 06/10/20 furosemide 20 mg tablet (Lasix) 20 mg PO QAM #7 tabs 02/26/23 potassium chloride 20 mEq 20 meq PO QDAY #7 tabs 02/26/23 tablet,extended release naproxen 500 mg tablet (Naprosyn) 500 mg PO BID PRN pain #14 tabs 05/27/23 meloxicam 15 mg tablet 15 mg PO QDAY #14 tabs 07/30/23 ciprofloxacin HCl 500 mg tablet 500 mg PO BID #14 tabs 02/20/24 (Cipro) meloxicam 7.5 mg tablet 7.5 mg PO QDAY #10 tabs 02/20/24 ondansetron 4 mg disintegrating 4 mg PO Q8H #10 tabs 02/20/24 tablet docusate sodium 100 mg capsule 100 mg PO BID PRN constipation #20 03/11/24 (Dulcolax Stool Softener caps (docusate)) docusate sodium 100 mg capsule 100 mg PO BID PRN constipation #20 03/11/24 (Dulcolax Stool Softener caps (docusate)) cefuroxime axetil 500 mg tablet 500 mg PO BID #14 tabs 06/29/24 Allergies Allergy/AdvReac Type Severity Reaction Status Date / Time No Known Allergies Allergy Verified 06/29/24 11:35 Review of Systems Review of Systems Narrative Review of Systems: Review of system reviewed and within normal limits except mentioned in HPI ED Exam Narrative Physical exam: VITAL SIGNS: Reviewed. GENERAL APPEARANCE: Alert and interactive, follows commands, no acute distress, HEAD AND FACE: Non-traumatic. ENT: PERRL, pink conjunctivitis, eyelid no trauma, Mucous membrane moist. NECK: Supple, nontender, no nuchal rigidity. CHEST: No tenderness, no crepitus, no paradoxical movement, no retractions. LUNGS: Clear, well ventilated, symmetric, no rales, no wheezing, no ronchi, no stridor, good breath sounds bilaterally. HEART: Regular rate, regular rhythm, no murmur, no gallops. ABDOMEN: Soft, positive bowel sounds, nondistended, no guarding, nontender, no rebound, no masses, RECTAL: Deferred. GENITAL: Deferred. NEUROLOGICAL: Gross motor function intact sensory function intact, Appropriate for age. MUSCULOSKELETAL: low back nontender, full range of motion. EXTREMITIES: Nontender, full range of motion. SKIN: Color pink, dry, no rash, no lacerations, no abrasions, no contusions. LYMPHATICS: Deferred. Course Quality Measures none Orders Category Date Time Status CT abdomen pelvis wo con Stat Exams 06/29/24 12:06 Completed CBC Stat Lab 06/29/24 12:20 Completed CMP [Comprehensive Metabolic Panel] Stat Lab 06/29/24 12:20 Completed Lipase Stat Lab 06/29/24 12:20 Completed UA [Urinalysis] Stat Lab 06/29/24 13:02 Completed Urine Culture Stat Lab 06/29/24 13:02 Received Ketorolac Inj [Toradol Inj] Med 06/29/24 12:06 Discontinued 30 mg IM X1 ONE cefTRIAXone [Rocephin] 1,000 mg Med 06/29/24 14:00 Discontinued Lidocaine 1% 20 ml [Xylocaine 1% 20 ML] 2.1 ml IM X1 Vital Signs Vital signs: Vital Signs Temperature 97.9 F 06/29/24 12:10 Pulse Rate 84 06/29/24 12:10 Respiratory Rate 20 06/29/24 12:10 Blood Pressure 117/77 06/29/24 12:10 Pulse Oximetry (%) 97 06/29/24 12:10 Oxygen Delivery Method Room Air 06/29/24 12:10 Urogenital - Female MDM Narrative MDM Narrative:: 88-year-old female with a history of hypertension, hyperlipidemia presents to the emergency room with a chief complaint of dysuria and right-sided flank pain x 4 days Patient denies any fever denies any vomiting denies any other complaints no medication was taken prior to arrival. Laboratory workup significant for UTI otherwise unremarkable. CT scan of the abdomen and pelvis showed nonobstructing kidney stone, otherwise unremarkable. Results discussed with the patient. Patient received ceftriaxone IM. Patient is tolerating p.o. fluids. Patient is stable for discharge home Patient data External records reviewed:: None Clinical information provided by:: none Social determinants that could affect healthcare access:: none Patient has the following chronic illnesses:: Hypertension diabetes mellitus How is presenting disease/condition affected by chronic disease/condition?: uneffected by Evaluation data The following diagnostics were reviewed and interpreted by me:: lab results and radiology exam(s) Lab and/or radiology exams considered but not ordered:: None Interpretation Summary: See results MDM Medications / Prescriptions Medications or Prescriptions considered but not ordered:: None Medication administrations:: Medication Administration History Discontinued Medications Ceftriaxone Sodium 1,000 mg/ (Lidocaine HCl 2.1 ml) 0 mg IM X1 ONE Stop: 06/29/24 14:01 Ketorolac Tromethamine (Ketorolac Inj 60 Mg/2 Ml Vial) 30 mg IM X1 ONE Stop: 06/29/24 12:07 Last Admin: 06/29/24 12:50 Dose: 30 mg Documented By: Ceftriaxone IM and Toradol IM Consultations Consultation(s) initiated? (list below): No Diagnosis Urogenital Female Differential Diagnosis: urinary tract infection and other (Nephro lithiasis) Most likely diagnosis given after review of the tests above:: uti Admission Indicated Admission indicated?: not indicated Admission Request Was there a request for admission?: No Disposition Plan Disposition Plan: Discharge Discharge Attestation Discharge Attestation: The patient and all family members were given an opportunity to ask questions and understood the discharge instructions. Discharge instructions specifically effects, indications for sooner follow up or return to the emergency department, and the expected course of current diagnosis. Patient condition: Stable Discharge Plan Plan Patient Disposition: HOME (Self Care) Disposition Comment: stable Prescriptions/Referrals Prescriptions/Med Rec: New cefuroxime axetil 500 mg tablet 500 mg PO BID Qty: 14 0RF No Action Eliquis 2.5 mg tablet 2.5 mg PO BID Qty: 60 0RF potassium chloride 20 mEq tablet extended release 20 meq PO QDAY Qty: 7 0RF furosemide [Lasix] 20 mg tablet 20 mg PO QAM Qty: 7 0RF alendronate 70 mg tablet 70 mg PO QWEEK Patient Comments: TAKE 1 TABLET BY MOUTH WEEKLY 30 MINUTES BEFORE FIRST FOOD OR BEVERAGE OR MEDICINE OF THE DAY WITH WATER ciprofloxacin HCl [Cipro] 500 mg tablet 500 mg PO BID Qty: 14 0RF ondansetron 4 mg tablet,disintegrating 4 mg PO Q8H Qty: 10 0RF meloxicam 7.5 mg tablet 7.5 mg PO QDAY Qty: 10 0RF levothyroxine 50 mcg tablet 50 mcg PO QDAY Patient Comments: TAKE 1 TABLET BY MOUTH ONCE 30 MINUTES BEFORE BREAKFAST cilostazol 50 mg tablet 50 mg PO QDAY Patient Comments: TAKE 1 TABLET BY MOUTH TWICE DAILY isosorbide mononitrate 30 mg tablet extended release 24 hr 30 mg PO QAM Patient Comments: TAKE 1 TABLET BY MOUTH EVERY DAY IN THE MORNING carvedilol 6.25 mg tablet 6.25 mg PO BID Patient Comments: TAKE 1 TABLET BY MOUTH TWICE DAILY amiodarone [Pacerone] 200 mg Tablet 200 mg PO QDAY melatonin 3 mg Tablet 6 mg PO QPM amlodipine [Norvasc] 5 mg Tablet 5 mg PO 2XD pantoprazole [Protonix] 40 mg Tablet,Delayed Release (Dr/Ec) 40 mg PO 1XD gabapentin [Neurontin] 300 mg Capsule 300 mg PO 2XD hydroxyzine HCl 10 mg Tablet 10 mg PO QPM PRN (Reason: Itching) rosuvastatin 10 mg Tablet 10 mg PO QPM revefenacin 175 mcg/3 mL Solution For Nebulization 175 mcg INHALATION 1XD insulin degludec [Tresiba U-100 Insulin] 100 unit/mL Solution 100 unit SUBCUT QPM naproxen [Naprosyn] 500 mg tablet 500 mg PO BID PRN (Reason: pain) Qty: 14 0RF meloxicam 15 mg tablet 15 mg PO QDAY Qty: 14 0RF docusate sodium [Dulcolax Stool Softener (dss)] 100 mg capsule 100 mg PO BID PRN (Reason: constipation) Qty: 20 0RF docusate sodium [Dulcolax Stool Softener (dss)] 100 mg capsule 100 mg PO BID PRN (Reason: constipation) Qty: 20 0RF Problem List Clinical Impression: Acute UTI Patient/Caregiver Discharge Instructions Discharge Activity: activity as tolerated Education Materials: ED Urinary Retention, Female Additional Instructions: Thank you for the opportunity for serving you today. You are stable for discharged . You are advised to: Follow-up with your PCP in 1 to 2 days Return to ED for worsening of symptoms Increase oral fluids Take medication as prescribed Print Language: Swedish Stand Alone Forms: Karen Award Info., Patient Portal Info Letter PA/DRILL RIG OPERATOR HELPER Supervising Physician PINO/MARTIN Supervising Physician: MD Melissa
[2024-06-29] MEDS: cefTRIAXone 1,000 MG, LIDOCAINE 1% 20 ML 2.1 ML IM (14:47)
== END 2024-06-29 14:45 | disposition home or self-care (01) ==
LOC: SERX 14:50
PROVIDERS: Nurse Practitioner Family; Emergency Provider Emergency Medicine; PCP Physician Assistant
DX: N39.0 Urinary tract infection, site not specified (principal); E78.5 Hyperlipidemia, unspecified; I10 Essential (primary) hypertension
CPT/HCPCS: 36415; 74176; 80053; 81001; 83690; 85025; 87077; 87086; 87186; 96372; 99284; J0696; J1885; J3490

== ENCOUNTER → 2024-08-11 | Outpatient (CLI) | payer MEDICARE, MEDICAID, SELFPAY ==
[2024-08-11 09:35] LABS: Glucose Estimated Average 197 mg/dL (80-131); Hemoglobin A1C 8.5 % Hgb (4.8-6.0)
[2024-08-11 09:43] LABS: Alanine Aminotransferase 14 U/L (10-49); Albumin/Globulin Ratio 1.7 (1.2-2.2); Alkaline Phosphatase 187 U/L (46-116); Anion Gap 12 (7-16); Aspartate Amino Transferase 25 U/L (0-34); BUN/Creatinine Ratio 16 Ratio (12-20); Bilirubin,Total 0.5 mg/dL (0.3-1.2); Blood Urea Nitrogen 14 mg/dL (9-23); Calcium 9.4 mg/dL (8.3-10.6); Calcium (Corrected) 9.4 mg/dL (8.5-10.1); Carbon Dioxide 31.2 mMol/L (20.0-31.0); Chloride 96 mMol/L (98-107); Cholesterol 98 mg/dL (132-200); Creatinine (Component) 0.9 mg/dL (0.6-1.3); Globulin 2.4 gm/dL (2.3-3.5); Glucose 181 mg/dL (74-106); HDL Cholesterol 48 mg/dL (40-60); LDL Cholesterol,Calculated 28 mg/dL (0-130); Osmolality,Calculated 283 (275-295); Potassium 4.1 mMol/L (3.4-5.1); Sodium 139 mMol/L (136-145); Thyroid Stimulating Hormone 3.13 uIU/mL (0.55-4.78); Total Protein 6.4 gm/dL (5.7-8.2); Triglycerides 110 mg/dL (30-150); eGFR > 60 See Note
== END | disposition home or self-care (01) ==
PROVIDERS: PCP Family Medicine; Referring Provider Physician Assistant; Visit Provider Physician Assistant
DX: E03.9 Hypothyroidism, unspecified (principal); E11.65 Type 2 diabetes mellitus with hyperglycemia; E78.5 Hyperlipidemia, unspecified; I10 Essential (primary) hypertension
CPT/HCPCS: 36415; 80053; 80061; 83036; 84443

== ENCOUNTER 2024-08-16 07:35 | Emergency (ER) | payer MEDICARE, MEDICAID, SELFPAY ==
[2024-08-16 07:36] VITALS: BMI 29.8
[2024-08-16 07:48] VITALS: BP 106/67; PULSE 93; RESP 19; TEMP 36.3; O2SAT 95
--- NOTE | 2024-08-16 08:01 | XR_ITS ---
Examination: CT abdomen and pelvis without contrast. Coronal 3-D reconstructions. Sagittal 2-D reconstructions. Date and time of exam:08 16 2024 at 0821 hrs. Indications: Lower abdominal pain today CTDI: vol (mGy): 926 DLP: (mGycm): 173 Technique: Axial images of the abdomen have been obtained, 3 mm slice thickness Intravenous contrast material has not been administered. Low dose protocols were performed. One or more of the following dose reduction techniques were used; automated exposure control, adjustment of the mA and/or KV according to patient size, use of iterative reconstruction technique. Findings: Fatty infiltration throughout the liver. No focal liver or splenic lesion. No pancreatic mass 2 mm nonobstructing left renal calculus. No masses or calculi. No bowel obstruction. No pericecal inflammatory change. Mild thickening of urinary bladder. Impression: 2 mm nonobstructing left renal calculus, Cystitis pattern.
--- NOTE | 2024-08-16 08:02 | XR_ITS ---
Examination: AP lateral chest 2 views Technique: Sitting AP lateral chest Date and time: August 16, 2024, 0844 hrs. Comparison March 26, 2022 Indications: Coughing weakness today. Findings: Mild prominence cardiac contour Moderate vascular congestion No lobar pneumonia. Moderate osteopenia Impression: Moderate vascular congestion.
--- NOTE | 2024-08-16 08:03 | PD.EDRME ---
Rapid Medical Screening Exam RME Arrival date/time: 08/16/24 07:35 88-year-old female with a history of hypertension, type 2 diabetes, hyperlipidemia presents to the emergency room with a chief complaint of dysuria, left-sided flank pain, constipation (7 days and), and abdominal pain and distention x 3 days I have greeted and performed a focused initial assessment of this patient. A comprehensive ED assessment and evaluation of the patient, analysis of all test results, and completion of the medical decision making process will be conducted by additional ED providers. Chief Complaint: General Adult/Misc Complain Time Seen by Provider: 08/16/24 07:49 Vital signs: Vital Signs Temperature 97.3 F 08/16/24 07:48 Pulse Rate 93 08/16/24 07:48 Respiratory Rate 19 08/16/24 07:48 Blood Pressure 106/67 08/16/24 07:48 Pulse Oximetry (%) 95 08/16/24 07:48 Oxygen Delivery Method Room Air 08/16/24 07:48 Vital signs reviewed by provider: Yes
[2024-08-16 08:35] LABS: Collection Type, Urine Clean Catch
[2024-08-16 08:48] LABS: Basophils % (Auto) 0 % (0-2.5); Eosinophils # (Auto) 0.1 Thou/mm3 (0.0-0.5); Eosinophils % (Auto) 1 % (0-10); Hematocrit 35.9 % (36.0-46.0); Hemoglobin 12.4 g/dL (12.0-16.0); Immature Granulocytes % (Auto) 1 % (0-0); Immature Granulocytes Auto 0.09 Thou/mm3 (0.00-0.00); Lymphocytes # (Auto) 2.1 Thou/mm3 (1.0-4.8); Lymphocytes % (Auto) 22 % (10-50); Mean Corpuscular HGB Conc 34.5 g/dl (31.0-37.0); Mean Corpuscular Hemoglobin 29.5 pg (25.0-35.0); Mean Corpuscular Volume 86 fL (80-100); Monocytes # (Auto) 0.7 Thou/mm3 (0.0-0.8); Monocytes % (Auto) 7 % (0-12); Neutrophils # (Auto) 6.8 Thou/mm3 (1.8-7.7); Neutrophils % (Auto) 69 % (37-80); Nucleated Red Blood Cell % 0 /100 WBC (0); Platelet Count 353 Thou/mm3 (140-440); RDW Standard Deviation 44.4 fL (36.4-46.3); White Blood Count 9.9 Thou/mm3 (3.6-11.0)
[2024-08-16 08:48] LABS: Bacteria,Urine 1+; Bilirubin,Urine Negative (Negative); Blood,Urine Trace (Negative); Color,Urine Drk-Yellow (Lt Yel-Yel); Glucose, Urine 1+ (Negative); Ketones,Urine Negative (Negative); Leukocyte Esterase,Urine Positive (Negative); Nitrite,Urine Positive (Negative); Protein,Urine Trace (Neg - Trace); RBC,Urine 15 /hpf (0-3); Specific Gravity,Urine 1.008 (1.001-1.035); Squamous Epithelial Cell,Urine 1 /hpf (0-5); Urobilinogen,Urine Negative mg/dL (0.0-1.0); WBC,Urine 662 /hpf (0-5)
[2024-08-16 08:51] LABS: Clarity,Urine Hazy (Clear/Hazy)
[2024-08-16 09:08] LABS: Alanine Aminotransferase 15 U/L (10-49); Albumin/Globulin Ratio 1.6 (1.2-2.2); Alkaline Phosphatase 207 U/L (46-116); Anion Gap 12 (7-16); BUN/Creatinine Ratio 9 Ratio (12-20); Bilirubin,Total 0.6 mg/dL (0.3-1.2); Blood Urea Nitrogen 8 mg/dL (9-23); Calcium 9.2 mg/dL (8.3-10.6); Calcium (Corrected) 9.2 mg/dL (8.5-10.1); Carbon Dioxide 29.2 mMol/L (20.0-31.0); Chloride 94 mMol/L (98-107); Creatinine (Component) 0.9 mg/dL (0.6-1.3); Estimated Creatinine Clearance 41.5 mL/min (>60); Globulin 2.5 gm/dL (2.3-3.5); Glucose 291 mg/dL (74-106); Lipase 24 U/L (12-53); Osmolality,Calculated 279 (275-295); Potassium 3.4 mMol/L (3.4-5.1); Sodium 135 mMol/L (136-145); Total Protein 6.5 gm/dL (5.7-8.2); eGFR > 60 See Note
--- NOTE | 2024-08-16 09:41 | PD.EDADULT ---
ED General RME/HPI General Chief complaint: General Adult/Misc Complain Stated complaint: PAIN W/ URINATION Time Seen by Provider: 08/16/24 07:49 Arrival date/time: 08/16/24 07:35 RME / HPI RME / HPI narrative: 08/16/24 07:35 88-year-old female with a history of hypertension, type 2 diabetes, hyperlipidemia presents to the emergency room with a chief complaint of dysuria, left-sided flank pain, constipation (7 days and), and abdominal pain and distention x 3 days I have greeted and performed a focused initial assessment of this patient. A comprehensive ED assessment and evaluation of the patient, analysis of all test results, and completion of the medical decision making process will be conducted by additional ED providers. DR. TORRES MAIN ED EVALUATION: 88 year old female presents to the Emergency Department brought in by her daughter with complaint of dysuria onset 4 AM today. Associated symptoms include nausea but no vomiting. No fevers or chills. No fall, injury, or loss of consciousness. Per daughter, patient has been constipated for the last week. She went to her doctor yesterday and her doctor prescribed magnesium medication, but not taken it because it was prescribed yesterday and pharmacy was already closed. PMHx: Wheelchair-dependent, baseline after hip surgery complications 2 years ago, hypertension, and hyperlipidemia. Social Hx: No tobacco, alcohol, or substance use. PCP is at [facility]. Related Data Home Medications ?Medication ?Instructions ?Recorded ?Confirmed cilostazol 50 mg tablet 50 mg PO QDAY 04/30/22 09/15/23 isosorbide mononitrate 30 mg 30 mg PO QAM 04/30/22 09/15/23 tablet,extended release 24 hr levothyroxine 50 mcg tablet 50 mcg PO QDAY 04/30/22 09/15/23 amiodarone 200 mg tablet (Pacerone) 200 mg PO QDAY 02/17/23 09/15/23 amlodipine 5 mg tablet (Norvasc) 5 mg PO 2XD 02/17/23 09/15/23 carvedilol 6.25 mg tablet 6.25 mg PO BID 02/17/23 09/15/23 gabapentin 300 mg capsule 300 mg PO 2XD 02/17/23 09/15/23 (Neurontin) hydroxyzine HCl 10 mg tablet 10 mg PO QPM PRN Itching 02/17/23 09/15/23 insulin degludec 100 unit/mL 100 unit subcut QPM 02/17/23 02/17/23 subcutaneous solution (Tresiba U-100 Insulin) melatonin 3 mg tablet 6 mg PO QPM 02/17/23 09/15/23 pantoprazole 40 mg tablet,delayed 40 mg PO 1XD 02/17/23 09/15/23 release (Protonix) revefenacin 175 mcg/3 mL solution 175 mcg inhalation 1XD 02/17/23 02/17/23 for nebulization rosuvastatin 10 mg tablet 10 mg PO QPM 02/17/23 09/15/23 alendronate 70 mg tablet 70 mg PO QWEEK 09/15/23 09/15/23 Previous Rx's ?Medication ?Instructions ?Recorded apixaban 2.5 mg tablet (Eliquis) 2.5 mg PO BID #60 tabs 06/10/20 furosemide 20 mg tablet (Lasix) 20 mg PO QAM #7 tabs 02/26/23 potassium chloride 20 mEq 20 meq PO QDAY #7 tabs 02/26/23 tablet,extended release naproxen 500 mg tablet (Naprosyn) 500 mg PO BID PRN pain #14 tabs 05/27/23 meloxicam 15 mg tablet 15 mg PO QDAY #14 tabs 07/30/23 ciprofloxacin HCl 500 mg tablet 500 mg PO BID #14 tabs 02/20/24 (Cipro) meloxicam 7.5 mg tablet 7.5 mg PO QDAY #10 tabs 02/20/24 ondansetron 4 mg disintegrating 4 mg PO Q8H #10 tabs 02/20/24 tablet docusate sodium 100 mg capsule 100 mg PO BID PRN constipation #20 03/11/24 (Dulcolax Stool Softener caps (docusate)) docusate sodium 100 mg capsule 100 mg PO BID PRN constipation #20 03/11/24 (Dulcolax Stool Softener caps (docusate)) cefuroxime axetil 500 mg tablet 500 mg PO BID #14 tabs 06/29/24 cephalexin 500 mg capsule 500 mg PO QID #40 caps 08/16/24 Allergies Allergy/AdvReac Type Severity Reaction Status Date / Time No Known Allergies Allergy Verified 08/16/24 07:41 Review of Systems Review of Systems Systems Reviewed: All systems reviewed, normal except as documented Narrative Review of Systems: Constitutional: DENIES: fevers; Eyes: DENIES: loss of vision; Head/Ear/Nose: DENIES: loss of hearing. Throat: DENIES: dysphagia. Cardiovascular: DENIES: chest pain, dyspnea, or syncope. Respiratory: DENIES: shortness of breath; Gastrointestinal: POSITIVES: nausea DENIES: rectal bleeding or melena. Genitourinary: POSITIVES: dysuria (painful or difficult urination); Musculoskeletal: DENIES: arthralgia (pain in a joint); Skin: DENIES: rash; Neurological: DENIES: loss of function or movement; Psychiatric: DENIES: recent major life stressor, emotional problem, illicit drug use or abuse; Endocrinology: DENIES: weight change,; Hematologic/Lymphatic: DENIES: abnormal bruising. Allergic/Immunologic: DENIES: urticaria (hives). Past Medical History Past Medical History NEUROLOGIC: Positive Neurological Disorders and Transient Ischemic Attacks (TIA) CARDIAC: Positive Atrial Fibrillation, Coronary Artery Disease, Hypercholesterolemia, Hypertension and Varicose Veins RESPIRATORY: Positive Asthma, Bronchitis and Pneumonia GASTROINTESTINAL: Positive Gastrointestinal Disorders, Gastrointestinal Bleed and Obesity REPRODUCTIVE: Positive Previous Pregnancies MUSCULOSKELETAL: Positive Musculoskeletal Disorders, Arthritis and Rheumatoid Arthritis ENT: Positive Cataracts and Deafness ENDOCRINE: Positive Endocrine Disorders HEMATOLOGIC: Positive Anemia OTHER HISTORY: Positive Falls Surgical History SURGICAL: Positive Cardiac Catheterization, Angiogram, Eye Surgery and Abdominal Surgery Social History SMOKING STATUS: Never smoker SECOND HAND EXPOSURE: No SUBSTANCE USE: does not use ALCOHOL: Never ED Exam Narrative Physical exam: Physical Exam: General: The vital signs were reviewed. The patient is non-toxic, in no apparent distress and appears healthy with a patent airway, no respiratory distress and has no apparent circulatory problems. Head & Scalp: Normocephalic, atraumatic. Face: Appears normal and is without lesions, deformity. Ears: Left external pinna appears normal. Right external pinna appears normal. Eyes: The sclera is anicteric. No obvious photophobia. The Left and Right Orbit/Lid/Conjunctiva appears normal without swelling, discoloration or injection. Nose: The nose is without deformity, discharge or tenderness; Throat: Appears normal. The mucous membranes are pink and moist without exudates, redness or mass seen. The tongue appears normal. Neck: The neck is supple and no apparent mass or adenopathy. Chest: The chest wall is normal in size and symmetry and has no chest wall tenderness or crepitus. The patient displays normal ventilator effort without retractions, accessory muscle use and has adequate air movement bilaterally with no wheezes and no rales. Cardiovascular: Regular rate and rhythm; No murmurs, rubs, or gallops; Gastrointestinal: The abdomen appears obese and protuberant there is some vague lower abdominal discomfort. No obvious hernias or mass. The abdomen is soft and benign, non-distended, with no pain, no guarding and no rebound tenderness. Bowel sounds are present and normal sounding. No CVA tenderness. Genitourinary: Back/Spine: Normal inspection Extremities/Musculoskeletal/lymphatic: The bilateral upper and lower extremities are warm. There is no evidence of arterial insufficiency. There is no evidence of venous insufficiency/edema. The patient spontaneously moves bilateral upper and lower extremities with no pain and no limitation of movement. There is no apparent, injury or trauma. Skin: The skin is warm, dry and intact. No rashes. No petechia. No purpura. No abnormal bruising. The color is appropriate with no cyanosis. Mental status/Psychiatric: Mental status is appropriate for age. The patient has no apparent delusions, visual hallucinations, no apparent audible hallucinations. The patient has no apparent suicidal thoughts/ideation and no apparent homicidal thoughts/ideation. Neurological: The patient is awake, alert, interactive, cordial, cooperative and is oriented to name and situation. The patient follows commands and answers historical question with no impairment. There is no visual disturbance apparent. The pupils are equal and reactive bilaterally with normal eye movements and no diplopia The bilateral upper and lower extremities have normal strength, normal range of motion and normal functioning. The gait, station and balance were not tested as the patient is wheelchair-bound. Course Quality Measures none Orders Category Date Time Status Insert IV STAT Care 08/16/24 08:[address] abdomen pelvis wo con Stat Exams 08/16/24 08:01 Completed XR chest 2V Stat Exams 08/16/24 08:02 Completed Blood Culture (Lab) Stat Lab 08/16/24 10:21 Received CBC Stat Lab 08/16/24 08:38 Completed CMP [Comprehensive Metabolic Panel] Stat Lab 08/16/24 08:38 Completed Lactate (Lactic Acid) Stat Lab 08/16/24 10:29 Completed Lipase Stat Lab 08/16/24 08:38 Completed UA [Urinalysis] Stat Lab 08/16/24 08:12 Completed Urine Culture Stat Lab 08/16/24 08:12 Received Sodium Chloride 0.9% 1000 ml [Ns] 1,000 ml Med 08/16/24 09:45 Active IV 100 mls/hr cefTRIAXone/D5w 1gm IV premix [Rocephin/D5w 1gm IV Med 08/16/24 09:45 Discontinued premix] 1 gm in 50 ml IV X1 Vital Signs Vital signs: Vital Signs Temperature 97.3 F 08/16/24 07:48 Pulse Rate 93 08/16/24 07:48 Respiratory Rate 19 08/16/24 07:48 Blood Pressure 106/67 08/16/24 07:48 Pulse Oximetry (%) 95 08/16/24 07:48 Oxygen Delivery Method Room Air 08/16/24 07:48 Discharge Plan Plan Patient Disposition: HOME (Self Care) Prescriptions/Referrals Prescriptions/Med Rec: New cephalexin 500 mg capsule 500 mg PO QID Qty: 40 0RF No Action Eliquis 2.5 mg tablet 2.5 mg PO BID Qty: 60 0RF potassium chloride 20 mEq tablet extended release 20 meq PO QDAY Qty: 7 0RF furosemide [Lasix] 20 mg tablet 20 mg PO QAM Qty: 7 0RF alendronate 70 mg tablet 70 mg PO QWEEK Patient Comments: TAKE 1 TABLET BY MOUTH WEEKLY 30 MINUTES BEFORE FIRST FOOD OR BEVERAGE OR MEDICINE OF THE DAY WITH WATER ciprofloxacin HCl [Cipro] 500 mg tablet 500 mg PO BID Qty: 14 0RF ondansetron 4 mg tablet,disintegrating 4 mg PO Q8H Qty: 10 0RF meloxicam 7.5 mg tablet 7.5 mg PO QDAY Qty: 10 0RF levothyroxine 50 mcg tablet 50 mcg PO QDAY Patient Comments: TAKE 1 TABLET BY MOUTH ONCE 30 MINUTES BEFORE BREAKFAST cilostazol 50 mg tablet 50 mg PO QDAY Patient Comments: TAKE 1 TABLET BY MOUTH TWICE DAILY isosorbide mononitrate 30 mg tablet extended release 24 hr 30 mg PO QAM Patient Comments: TAKE 1 TABLET BY MOUTH EVERY DAY IN THE MORNING carvedilol 6.25 mg tablet 6.25 mg PO BID Patient Comments: TAKE 1 TABLET BY MOUTH TWICE DAILY amiodarone [Pacerone] 200 mg Tablet 200 mg PO QDAY melatonin 3 mg Tablet 6 mg PO QPM amlodipine [Norvasc] 5 mg Tablet 5 mg PO 2XD pantoprazole [Protonix] 40 mg Tablet,Delayed Release (Dr/Ec) 40 mg PO 1XD gabapentin [Neurontin] 300 mg Capsule 300 mg PO 2XD hydroxyzine HCl 10 mg Tablet 10 mg PO QPM PRN (Reason: Itching) rosuvastatin 10 mg Tablet 10 mg PO QPM revefenacin 175 mcg/3 mL Solution For Nebulization 175 mcg INHALATION 1XD insulin degludec [Tresiba U-100 Insulin] 100 unit/mL Solution 100 unit SUBCUT QPM naproxen [Naprosyn] 500 mg tablet 500 mg PO BID PRN (Reason: pain) Qty: 14 0RF meloxicam 15 mg tablet 15 mg PO QDAY Qty: 14 0RF docusate sodium [Dulcolax Stool Softener (dss)] 100 mg capsule 100 mg PO BID PRN (Reason: constipation) Qty: 20 0RF docusate sodium [Dulcolax Stool Softener (dss)] 100 mg capsule 100 mg PO BID PRN (Reason: constipation) Qty: 20 0RF cefuroxime axetil 500 mg tablet 500 mg PO BID Qty: 14 0RF Referrals: Usha Sterling PA-C [Primary Care Provider] - In 1 week Problem List Clinical Impression: Urinary tract infection, Dysuria, Constipation, Chronic pain of right hip, Ambulatory dysfunction Patient/Caregiver Discharge Instructions Education Materials: Dysuria Additional Instructions: Your medical workup today reveals you have a urine infection. You got 1 dose of Rocephin 1000 mg in the emergency department. A prescription for cephalexin 500 mg 4 times a day for the next 10 days. See the doctor tomorrow since you already have an appointment and make sure they follow-up on the urine culture. If you are getting worse with fever vomiting unable to keep down fluids or medicines and return for reevaluation. Make sure your doctor addresses your constipation problems and you follow-up with the urologist for your prolapsing uterus. Print Language: Ghanaian MDM Narrative MDM hospital course: I, Lacey Mcwilliams, am scribing for and in the presence of Dr. Torres. Patient has dysuria for 1 day she is somewhat bedbound in a wheelchair no fever vomiting diarrhea no other complaints medical workup reveals white count of 9.9 hemoglobin 12.4 sodium 135 potassium 3.4 chloride 94 CO2 29.2 BUN is 8 creatinine 0.9 glucose elevated to 91 urine came back positive with 662 white blood cells. Chest x-ray came back negative for any acute infection. CT of the abdomen was negative for any acute. There is a nonobstructing renal stone which will require follow-up as it obviously could be infected leading to the recurring urinary tract infections. Note the lactic acid came back negative. Patient got a dose of Rocephin reevaluation at 1210 hrs. so she feels good wants to go home vital signs show blood pressure and pulse to be normal and patient feels good she has a plan for her constipation issues and a plan to follow with her doctor tomorrow already. At the time of discharge she also reports she is having a vaginal prolapse has been referred to a urologist for this. Her vital signs are stable she has a doctor's appointment tomorrow and knows they need to follow-up on the urine culture in 2 days. Prescription for cephalexin 500 mg 4 times daily for the next 10 days was provided. They know to take this every 6 hours as best as possible. Clinical Information Provided by patient and family (daughter) Medical Records Reviewed [facility] Meds/Rx Considered, not Ordered None Labs/Rad/Tests considered, not Ordered None Chronic Illness/Social Conditions Add or document further as needed: Wheelchair-dependent, baseline after hip surgery complications 2 years ago, hypertension, and hyperlipidemia. EKG EKG not done Lab Interpretation Labs: see narrative above Imaging Imaging interpretation: see narrative above Radiology reports / interpretation(s): Procedure(s): XR chest 2V Accession Number(s): [id number] cc: Ben Valentin; Jose Manuel Medrano MD; Usha Sterling PA-C~ Examination: AP lateral chest 2 views Technique: Sitting AP lateral chest Date and time: August 16, 2024, 0844 hrs. Comparison March 26, 2022 Indications: Coughing weakness today. Findings: Mild prominence cardiac contour Moderate vascular congestion No lobar pneumonia. Moderate osteopenia Impression: Moderate vascular congestion. Dictated By: Jose Manuel Medrano MD Procedure(s): CT abdomen pelvis wo [facility] Accession Number(s): [id number] cc: Ben Valentin; Jose Manuel Medrano MD; Usha Sterling PA-C~ Examination: CT abdomen and pelvis without contrast. Coronal 3-D reconstructions. Sagittal 2-D reconstructions. Date and time of exam:08 16 2024 at 0821 hrs. Indications: Lower abdominal pain today CTDI: vol (mGy): 926 DLP: (mGycm): 173 Technique: Axial images of the abdomen have been obtained, 3 mm slice thickness Intravenous contrast material has not been administered. Low dose protocols were performed. One or more of the following dose reduction techniques were used; automated exposure control, adjustment of the mA and/or KV according to patient size, use of iterative reconstruction technique. Findings: Fatty infiltration throughout the liver. No focal liver or splenic lesion. No pancreatic mass 2 mm nonobstructing left renal calculus. No masses or calculi. No bowel obstruction. No pericecal inflammatory change. Mild thickening of urinary bladder. Impression: 2 mm nonobstructing left renal calculus, Cystitis pattern. Dictated By: Jose Manuel Medrano MD Medication Administration(s) Medication Administration History Sodium Chloride (Ns) 1,000 mls @ 100 mls/hr IV .Q10H ONE Stop: 08/16/24 19:44 Last Admin: 08/16/24 10:14 Dose: 100 mls/hr Documented By: DB Discontinued Medications Ceftriaxone Sodium/Dextrose (Rocephin/D5w 1gm Iv Premix) 1 gm in 50 mls @ 100 mls/hr IV X1 ONE Stop: 08/16/24 10:14 Last Infusion: 08/16/24 10:45 Dose: Infused Documented By: Admin: 08/16/24 10:15 Dose: 100 mls/hr Documented By: HIPOLITO Diagnosis Differential diagnosis: UTI, pylonephritis, dysuria Most likely dx, and/or detailed dx discussion: UTI Dysuria Constipation Chronic pain of right hip Ambulatory dysfuction Dispositon Disposition: Discharge Home
[2024-08-16 10:14] VITALS: BP 113/61; PULSE 82; RESP 18; TEMP 36.1; O2SAT 95
[2024-08-16] MEDS: SODIUM CHLORIDE 0.9% 1000 ML 1,000 ML 100 ML IV (10:14)
[2024-08-16] MEDS: cefTRIAXone/D5w 1gm IV premix 1 GM/50 ML BAG IV (10:15)
[2024-08-16 10:50] LABS: Lactate (Lactic Acid) 1.6 mMol/L (0.4-2.0)
== END 2024-08-16 14:01 | disposition home or self-care (01) ==
PROVIDERS: Nurse Practitioner Family; Emergency Provider Emergency Medicine; PCP Physician Assistant
DX: N39.0 Urinary tract infection, site not specified (principal); N20.0 Calculus of kidney; R09.89 Other specified symptoms and signs involving the circulatory and respiratory systems; K59.00 Constipation, unspecified; R26.2 Difficulty in walking, not elsewhere classified; M25.551 Pain in right hip; G89.29 Other chronic pain; Z99.3 Dependence on wheelchair
CPT/HCPCS: 36415; 71046; 74176; 80053; 81001; 83605; 83690; 85025; 87040; 87077; 87086; 87186; 96361; 96365; 99284; J0696; J7030

== ENCOUNTER 2024-08-21 16:22 | Emergency (ER) | payer MEDICARE, MEDICAID, SELFPAY ==
[2024-08-21 16:31] VITALS: BP 145/74; PULSE 90; RESP 18; TEMP 36.8; O2SAT 96
[2024-08-21 16:32] VITALS: BMI 31.7
--- NOTE | 2024-08-21 16:36 | EKG_ITS ---
[facility] Test Date: 2024-08-21 Pat Name: ALANNA Savagepartment: Room: - Gender: Female Automatic Engraver: : 1935 Requested By: Christopher Ahn (AIR BRUSH ARTIST) Order Number: [id number] Reading MD: Christopher Ahn (AIR BRUSH ARTIST) Measurements Intervals Mclean Rate: 88 P: 112 WV: 156 QRS: 122 QRSD: 149 T: 29 QT: 426 QTc: 516 Interpretive Statements SINUS RHYTHM RIGHT AXIS DEVIATION [QRS AXIS > 100] RIGHT BUNDLE BRANCH BLOCK [120+ ms QRS DURATION, UPRIGHT V1, 40+ ms S IN I/aVL/V4/V5/V6] Compared to ECG 03/26/2024 14:37:05 No significant changes /store/S0/[id number]/ecg/[id number].pdf
--- NOTE | 2024-08-21 16:37 | PD.EDRME ---
Rapid Medical Screening Exam RME Arrival date/time: 08/21/24 16:22 88-year-old female presents to the emergency department for complaints of upper abdominal pain, abdominal burning nausea and vomiting Chief Complaint: Nausea/Vomiting/Diarrhea Vital signs: Vital Signs Temperature 98.2 F 08/21/24 16:31 Pulse Rate 90 08/21/24 16:31 Respiratory Rate 18 08/21/24 16:31 Blood Pressure 145/74 H 08/21/24 16:31 Pulse Oximetry (%) 96 08/21/24 16:31 Oxygen Delivery Method Room Air 08/21/24 16:31
[2024-08-21] MEDS: ONDANSETRON ODT 4 MG TABRAP PO (16:42)
[2024-08-21] MEDS: FAMOTIDINE 20 MG TABLET PO (16:43)
[2024-08-21 17:00] LABS: Basophils % (Auto) 0 % (0-2.5); Eosinophils # (Auto) 0.1 Thou/mm3 (0.0-0.5); Eosinophils % (Auto) 1 % (0-10); Hematocrit 37.2 % (36.0-46.0); Hemoglobin 12.7 g/dL (12.0-16.0); Immature Granulocytes % (Auto) 1 % (0-0); Immature Granulocytes Auto 0.07 Thou/mm3 (0.00-0.00); Lymphocytes # (Auto) 2.2 Thou/mm3 (1.0-4.8); Lymphocytes % (Auto) 23 % (10-50); Mean Corpuscular HGB Conc 34.1 g/dl (31.0-37.0); Mean Corpuscular Hemoglobin 28.5 pg (25.0-35.0); Mean Corpuscular Volume 83 fL (80-100); Monocytes # (Auto) 0.6 Thou/mm3 (0.0-0.8); Monocytes % (Auto) 7 % (0-12); Neutrophils # (Auto) 6.5 Thou/mm3 (1.8-7.7); Neutrophils % (Auto) 69 % (37-80); Nucleated Red Blood Cell % 0 /100 WBC (0); Platelet Count 370 Thou/mm3 (140-440); RDW Standard Deviation 43.9 fL (36.4-46.3); Red Blood Count 4.46 Miln/mm3 (4.00-5.20); White Blood Count 9.5 Thou/mm3 (3.6-11.0)
[2024-08-21 17:20] LABS: Collection Type, Urine Clean Catch
[2024-08-21 17:20] LABS: Alanine Aminotransferase 14 U/L (10-49); Albumin, Serum 4.1 gm/dL (3.4-4.8); Albumin/Globulin Ratio 1.6 (1.2-2.2); Alkaline Phosphatase 196 U/L (46-116); Anion Gap 11 (7-16); Aspartate Amino Transferase 28 U/L (0-34); BUN/Creatinine Ratio 7 Ratio (12-20); Bilirubin,Total 0.5 mg/dL (0.3-1.2); Blood Urea Nitrogen 7 mg/dL (9-23); Calcium 9.8 mg/dL (8.3-10.6); Calcium (Corrected) 9.8 mg/dL (8.5-10.1); Carbon Dioxide 27.6 mMol/L (20.0-31.0); Chloride 95 mMol/L (98-107); Estimated Creatinine Clearance 41.5 mL/min (>60); Globulin 2.6 gm/dL (2.3-3.5); Glucose 236 mg/dL (74-106); Lipase 26 U/L (12-53); Osmolality,Calculated 274 (275-295); Potassium 3.6 mMol/L (3.4-5.1); Sodium 134 mMol/L (136-145); Total Protein 6.7 gm/dL (5.7-8.2); Troponin I < 0.020 ng/mL (0.0-0.045); eGFR 55 See Note
[2024-08-21 17:38] LABS: Bilirubin,Urine Negative (Negative); Blood,Urine Negative (Negative); Clarity,Urine Turbid (Clear/Hazy); Color,Urine Yellow (Lt Yel-Yel); Culture Indicated,Urine Not Indicated; Glucose, Urine Negative (Negative); Ketones,Urine Negative (Negative); Leukocyte Esterase,Urine Positive (Negative); Nitrite,Urine Negative (Negative); Protein,Urine 1+ (Neg - Trace); RBC,Urine 3 /hpf (0-3); Squamous Epithelial Cell,Urine 9 /hpf (0-5); Urobilinogen,Urine Negative mg/dL (0.0-1.0); WBC,Urine 8 /hpf (0-5)
[2024-08-21 20:29] VITALS: BP 146/77; PULSE 95; RESP 19; TEMP 36.4; O2SAT 99
--- NOTE | 2024-08-21 20:42 | PD.EDNV ---
Nausea/Vomit./Diarrhea-RME/HPI General Chief complaint: Nausea/Vomiting/Diarrhea Stated complaint: Nausea and bilateral hand/finger numbness Time Seen by Provider: 08/21/24 20:05 Arrival date/time: 08/21/24 16:22 RME / HPI RME / HPI Narrative: 08/21/24 16:22 88-year-old female presents to the emergency department for complaints of upper abdominal pain, abdominal burning nausea and vomiting ------- Dr. Smith?s Main ED Evaluation: 88yo female with a history of CAD, aFib on Eliquis, HTN, HLD, DM presents to the ED for a chief complaint of nausea. Patient states she's felt nauseated for the last few days. She is currently on antibiotics for UTI, but does not recall what medication she's on. Patient subsequently complains of her bilateral tingling to her BLE, but she is on gabapentin for her neuropathy. Patient denies any fever, chills, vomiting, diarrhea, cough, congestion, chest pain or any other associated symptoms. NKA. Related Data Home Medications ?Medication ?Instructions ?Recorded ?Confirmed cilostazol 50 mg tablet 50 mg PO QDAY 04/30/22 09/15/23 isosorbide mononitrate 30 mg 30 mg PO QAM 04/30/22 09/15/23 tablet,extended release 24 hr levothyroxine 50 mcg tablet 50 mcg PO QDAY 04/30/22 09/15/23 amiodarone 200 mg tablet (Pacerone) 200 mg PO QDAY 02/17/23 09/15/23 amlodipine 5 mg tablet (Norvasc) 5 mg PO 2XD 02/17/23 09/15/23 carvedilol 6.25 mg tablet 6.25 mg PO BID 02/17/23 09/15/23 gabapentin 300 mg capsule 300 mg PO 2XD 02/17/23 09/15/23 (Neurontin) hydroxyzine HCl 10 mg tablet 10 mg PO QPM PRN Itching 02/17/23 09/15/23 insulin degludec 100 unit/mL 100 unit subcut QPM 02/17/23 02/17/23 subcutaneous solution (Tresiba U-100 Insulin) melatonin 3 mg tablet 6 mg PO QPM 02/17/23 09/15/23 pantoprazole 40 mg tablet,delayed 40 mg PO 1XD 02/17/23 09/15/23 release (Protonix) revefenacin 175 mcg/3 mL solution 175 mcg inhalation 1XD 02/17/23 02/17/23 for nebulization rosuvastatin 10 mg tablet 10 mg PO QPM 02/17/23 09/15/23 alendronate 70 mg tablet 70 mg PO QWEEK 09/15/23 09/15/23 Previous Rx's ?Medication ?Instructions ?Recorded apixaban 2.5 mg tablet (Eliquis) 2.5 mg PO BID #60 tabs 06/10/20 furosemide 20 mg tablet (Lasix) 20 mg PO QAM #7 tabs 02/26/23 potassium chloride 20 mEq 20 meq PO QDAY #7 tabs 02/26/23 tablet,extended release naproxen 500 mg tablet (Naprosyn) 500 mg PO BID PRN pain #14 tabs 05/27/23 meloxicam 15 mg tablet 15 mg PO QDAY #14 tabs 07/30/23 ciprofloxacin HCl 500 mg tablet 500 mg PO BID #14 tabs 02/20/24 (Cipro) meloxicam 7.5 mg tablet 7.5 mg PO QDAY #10 tabs 02/20/24 ondansetron 4 mg disintegrating 4 mg PO Q8H #10 tabs 02/20/24 tablet docusate sodium 100 mg capsule 100 mg PO BID PRN constipation #20 03/11/24 (Dulcolax Stool Softener caps (docusate)) docusate sodium 100 mg capsule 100 mg PO BID PRN constipation #20 03/11/24 (Dulcolax Stool Softener caps (docusate)) cefuroxime axetil 500 mg tablet 500 mg PO BID #14 tabs 06/29/24 cephalexin 500 mg capsule 500 mg PO QID #40 caps 08/16/24 ondansetron 4 mg disintegrating 4 mg PO Q12H PRN nausea and 08/21/24 tablet vomiting 3 days #6 tabs Allergies Allergy/AdvReac Type Severity Reaction Status Date / Time No Known Allergies Allergy Verified 08/21/24 16:26 Review of Systems Review of Systems Systems Reviewed: All systems reviewed, normal except as documented Past Medical History Past Medical History NEUROLOGIC: Positive Neurological Disorders and Transient Ischemic Attacks (TIA); Negative Seizures CARDIAC: Positive Atrial Fibrillation, Coronary Artery Disease, Hypercholesterolemia, Hypertension and Varicose Veins; Negative Cardiac Disorders, Congestive Heart Failure or Deep Vein Thrombosis RESPIRATORY: Positive Asthma, Bronchitis and Pneumonia; Negative Chronic Obstructive Pulmonary Disease (COPD) GASTROINTESTINAL: Positive Gastrointestinal Disorders, Gastrointestinal Bleed and Obesity GENITOURINARY: Negative Genitourinary Disorders or Renal Disease REPRODUCTIVE: Positive Previous Pregnancies; Negative Pelvic Inflammatory Disease MUSCULOSKELETAL: Positive Musculoskeletal Disorders, Arthritis and Rheumatoid Arthritis ENT: Positive Cataracts and Deafness ENDOCRINE: Positive Endocrine Disorders; Negative Diabetes Mellitus Type 1 or Diabetes Mellitus Type 2 HEMATOLOGIC: Positive Anemia; Negative Blood Disorders, Sickle Cell Disease or Clotting Problems PSYCHO/SOCIAL: Negative Anxiety OTHER HISTORY: Positive Falls; Negative Hospitalization, Blood Transfusions or Anesthesia Reactions Family History FAMILY HISTORY: Negative Family Neurologic Problems, Family Psychiatric Problems, Family Respiratory Disorders, Family Cardiac Disorders, Family Gastrointestinal Problems, Family Cancer, Family Surgery or Family Anesthesia Reaction Surgical History SURGICAL: Positive Cardiac Catheterization, Angiogram, Eye Surgery and Abdominal Surgery; Negative Endocrine Surgery Social History SMOKING STATUS: Never smoker SECOND HAND EXPOSURE: No SUBSTANCE USE: does not use ED Exam Narrative Physical exam: GEN. APPEARANCE: The patient is alert awake oriented X-3 in no distress, lying down comfortably, does not look ill/toxic. Patient has good eye contact. Patient is cooperative. VITALS: All vitals were reviewed and the pulse ox is 99% on room air which is normal according to my interpretation. HEENT: Normocephalic, atraumatic. Pupils are equal and reactive. Oral mucosa is moist. Patent Nares NECK: Supple, nontender, no thyromegaly, no meningismus, no JVD, no step offs CHEST: Symmetrical, atraumatic, and with equal expansion , Nontender on palpation no deformity and no crepitus. CARDIOVASCULAR: Heart regular rhythm no murmur or gallop rub or extra beats. LUNGS: Clear to auscultation bilaterally with symmetrical chest rise. No laboring tachypnea or wheezing. No intercostal subcostal retraction. No rales and no rhonchi. ABDOMEN: Soft, flat, nontender to palpation, no guarding or rebound tenderness. There are no abnormal masses palpated. Active and normal bowel sounds. EXTREMITIES: Nontender. No edema. No cyanosis. Patient is able to move all 4 extremities well, with full ROM and good CSM. SKIN: Warm and dry, no jaundice or rashes noted. MUSCULOSKELETAL: No lubar or midline bony tenderness. There is no CVA tenderness. No paraspinal muscle spasm or tenderness. NEURO: Patient is BAH x 4, Cranial nerves II through XII grossly intact. There is no focal neurologic deficits noted. GCS is 15, PNS and [employer] appear grossly intact. PSYCHIATRIC: Patient is in normal mood and affect. Course Quality Measures none Orders Category Date Time Status EKG (ED ONLY) *Do not use* NOW Care 08/21/24 16:37 Completed EKG (ED Only) Stat Exams 08/21/24 16:36 Draft CBC Stat Lab 08/21/24 16:44 Completed Comprehensive Metabolic Panel Stat Lab 08/21/24 16:44 Completed Lipase Stat Lab 08/21/24 16:44 Completed Troponin I Stat Lab 08/21/24 16:44 Completed UA, C/S IF [Urinalysis, C/S if Indicated] Stat Lab 08/21/24 17:05 Completed Famotidine [Pepcid] Med 08/21/24 16:36 Discontinued 20 mg PO X1 ONE Ondansetron Odt [Zofran Odt] Med 08/21/24 16:36 Discontinued 4 mg PO X1 ONE cefTRIAXone [Rocephin] 1,000 mg Med 08/21/24 20:47 Discontinued Lidocaine 1% 20 ml [Xylocaine 1% 20 ML] 2.1 ml IM X1 Vital Signs Vital signs: Vital Signs Temperature 98.2 F 08/21/24 16:31 Pulse Rate 90 08/21/24 16:31 Respiratory Rate 18 08/21/24 16:31 Blood Pressure 145/74 H 08/21/24 16:31 Pulse Oximetry (%) 96 08/21/24 16:31 Oxygen Delivery Method Room Air 08/21/24 16:31 Nausea/Vomiting/Diarrhea MDM Narrative MDM Narrative:: Scribe Attestation: 08/21/24 - Seun, Eunice Celaya am scribing for and in the presence of Dr. Smith. Patient presents with nausea, he was recently started antibiotics for urinary tract infection. Vital signs and exam as above. Concern for medication side effect, less likely ACS arrhythmia pneumonia given lack of chest pain shortness of breath or cough. Less likely intra-abdominal pathology given abdomen soft lax and nontender. Ordered labs. Labs unremarkable urinalysis with evidence of resolving urinary tract infection. Reviewed patient's cultures, sensitive to ceftriaxone. Had joint decision-making conversation with patient, we will proceed with a dose of antibiotics here, and discharged home with medication for nausea. Advised patient to return immediately if symptoms worsen or new symptoms of concern Patient data External records reviewed:: [facility] previous records (Per chart review, patient was seen here on 08/16/24 for ambulatory dysfunction.) Clinical information provided by:: patient Social determinants that could affect healthcare access:: none Patient has the following chronic illnesses:: CAD, aFib on Eliquis, HTN, HLD, DM How is presenting disease/condition affected by chronic disease/condition?: caused by Evaluation data The following diagnostics were reviewed and interpreted by me:: lab results and EKG tracing(s) Lab and/or radiology exams considered but not ordered:: none Interpretation Summary: CBC normal, Glucose 236, Troponin normal, UA is turbid. EKG done at 1646, NSR, rate of 88, normal intervals, RBBB, no acute ischemia, according to my interpretation. Medications / Prescriptions Medications / Prescriptions considered but not ordered:: none Medication administrations:: Medication Administration History Discontinued Medications Ceftriaxone Sodium 1,000 mg/ (Lidocaine HCl 2.1 ml) 0 mg IM X1 ONE Stop: 08/21/24 20:48 Famotidine (Famotidine 20 Mg Tablet) 20 mg PO X1 ONE Stop: 08/21/24 16:37 Last Admin: 08/21/24 16:43 Dose: 20 mg Documented By: LINA Ondansetron HCl (Ondansetron Odt 4 Mg Tabrap) 4 mg PO X1 ONE; Protocol Stop: 08/21/24 16:37 Last Admin: 08/21/24 16:42 Dose: 4 mg Documented By: LINA see above Consultations Consultation(s) initiated? (list below): No Diagnosis Nausea Differential Diagnosis: other (medication side effect, UTI, less likely ACS, pneumonia; most likely intraabdominal pathology) Most likely diagnosis given after review of the tests above:: see clinical impression below Admission Indicated Admission indicated?: not indicated Explain why admission is indicated or not indicated:: With no severe illness, there was no indication for admission. Admission Request Was there a request for admission?: No Disposition Plan Disposition Plan: Discharge Discharge Attestation Discharge Attestation: The patient and all family members were given an opportunity to ask questions and understood the discharge instructions. Discharge instructions specifically effects, indications for sooner follow up or return to the emergency department, and the expected course of current diagnosis. Patient condition: Stable Discharge Plan Plan Patient Disposition: HOME (Self Care) Prescriptions/Referrals Prescriptions/Med Rec: New ondansetron 4 mg tablet,disintegrating 4 mg PO Q12H PRN (Reason: nausea and vomiting) 3 Days Qty: 6 0RF No Action Eliquis 2.5 mg tablet 2.5 mg PO BID Qty: 60 0RF potassium chloride 20 mEq tablet extended release 20 meq PO QDAY Qty: 7 0RF furosemide [Lasix] 20 mg tablet 20 mg PO QAM Qty: 7 0RF alendronate 70 mg tablet 70 mg PO QWEEK Patient Comments: TAKE 1 TABLET BY MOUTH WEEKLY 30 MINUTES BEFORE FIRST FOOD OR BEVERAGE OR MEDICINE OF THE DAY WITH WATER ciprofloxacin HCl [Cipro] 500 mg tablet 500 mg PO BID Qty: 14 0RF ondansetron 4 mg tablet,disintegrating 4 mg PO Q8H Qty: 10 0RF meloxicam 7.5 mg tablet 7.5 mg PO QDAY Qty: 10 0RF cephalexin 500 mg capsule 500 mg PO QID Qty: 40 0RF levothyroxine 50 mcg tablet 50 mcg PO QDAY Patient Comments: TAKE 1 TABLET BY MOUTH ONCE 30 MINUTES BEFORE BREAKFAST cilostazol 50 mg tablet 50 mg PO QDAY Patient Comments: TAKE 1 TABLET BY MOUTH TWICE DAILY isosorbide mononitrate 30 mg tablet extended release 24 hr 30 mg PO QAM Patient Comments: TAKE 1 TABLET BY MOUTH EVERY DAY IN THE MORNING carvedilol 6.25 mg tablet 6.25 mg PO BID Patient Comments: TAKE 1 TABLET BY MOUTH TWICE DAILY amiodarone [Pacerone] 200 mg Tablet 200 mg PO QDAY melatonin 3 mg Tablet 6 mg PO QPM amlodipine [Norvasc] 5 mg Tablet 5 mg PO 2XD pantoprazole [Protonix] 40 mg Tablet,Delayed Release (Dr/Ec) 40 mg PO 1XD gabapentin [Neurontin] 300 mg Capsule 300 mg PO 2XD hydroxyzine HCl 10 mg Tablet 10 mg PO QPM PRN (Reason: Itching) rosuvastatin 10 mg Tablet 10 mg PO QPM revefenacin 175 mcg/3 mL Solution For Nebulization 175 mcg INHALATION 1XD insulin degludec [Tresiba U-100 Insulin] 100 unit/mL Solution 100 unit SUBCUT QPM naproxen [Naprosyn] 500 mg tablet 500 mg PO BID PRN (Reason: pain) Qty: 14 0RF meloxicam 15 mg tablet 15 mg PO QDAY Qty: 14 0RF docusate sodium [Dulcolax Stool Softener (dss)] 100 mg capsule 100 mg PO BID PRN (Reason: constipation) Qty: 20 0RF docusate sodium [Dulcolax Stool Softener (dss)] 100 mg capsule 100 mg PO BID PRN (Reason: constipation) Qty: 20 0RF cefuroxime axetil 500 mg tablet 500 mg PO BID Qty: 14 0RF Referrals: No Primary/Family,Physician [Primary Care Provider] - In 1 week Problem List Clinical Impression: Nausea alone, Acute UTI Patient/Caregiver Discharge Instructions Discharge Activity: resume usual activities Education Materials: Urinary Tract Infections in Women Print Language: Estonian Stand Alone Forms: Karen Award Info., Patient Portal Info Letter
[2024-08-21] MEDS: cefTRIAXone 1,000 MG, LIDOCAINE 1% 20 ML 2.1 ML IM (21:03)
== END 2024-08-21 21:16 | disposition home or self-care (01) ==
PROVIDERS: Nurse Practitioner Primary Care; Emergency Provider Emergency Medicine
DX: N39.0 Urinary tract infection, site not specified (principal); R11.0 Nausea; I45.10 Unspecified right bundle-branch block; I25.10 Atherosclerotic heart disease of native coronary artery without angina pectoris; I48.91 Unspecified atrial fibrillation; I10 Essential (primary) hypertension; E78.5 Hyperlipidemia, unspecified; E11.9 Type 2 diabetes mellitus without complications; G62.9 Polyneuropathy, unspecified
CPT/HCPCS: 36415; 80053; 81001; 83690; 84484; 85025; 93005; 96372; 99283; J0696; J3490; Q0162; A9270

== ENCOUNTER → 2024-10-19 | Outpatient (CLI) | payer MEDICARE, MEDICAID, SELFPAY ==
--- NOTE | 2024-10-19 08:32 | XR_ITS ---
Examination: Lumbar spine, 5 views Technique: Lumbar spine AP, lateral, coned lateral lower lumbar spine, bilateral obliques 5 views Exam date and time: October 19, 2024 0845 hours INDICATIONS: Lower back pain radiating to both hips 5 years FINDINGS: Severe osteopenia. Lumbar dextroscoliosis 8 degrees Total right hip arthroplasty with satisfactory alignment. Diffuse advanced facet arthropathy. Chronic osteoporotic compressions L5, L4, L3, L2 No acute lumbar fracture Grade 1 anterolisthesis L4 on L5 Moderate degenerative disc disease L2-L3, L3-L4 Prominent lumbar spondylosis IMPRESSION: Severe osteopenia Moderate degenerative disc disease L2-L3, L3-L4 Chronic osteoporotic compressions as above No acute lumbar fracture
== END | disposition home or self-care (01) ==
LOC: CDIM 08:18
PROVIDERS: PCP Family Medicine; Referring Provider Physician Assistant; Visit Provider Physician Assistant
DX: M85.88 Other specified disorders of bone density and structure, other site (principal); M51.360 Other intervertebral disc degeneration, lumbar region with discogenic back pain only; M81.0 Age-related osteoporosis without current pathological fracture
CPT/HCPCS: 72110

== ENCOUNTER → 2024-12-22 | Outpatient (CLI) | payer MEDICARE, MEDICAID, SELFPAY ==
[2024-12-22 09:35] LABS: Basophils # (Auto) 0.0 Thou/mm3 (0.0-0.2); Basophils % (Auto) 0 % (0-2.5); Eosinophils # (Auto) 0.1 Thou/mm3 (0.0-0.5); Eosinophils % (Auto) 1 % (0-10); Hematocrit 41.1 % (36.0-46.0); Hemoglobin 13.6 g/dL (12.0-16.0); Immature Granulocytes Auto 0.07 Thou/mm3 (0.00-0.00); Lymphocytes # (Auto) 2.8 Thou/mm3 (1.0-4.8); Lymphocytes % (Auto) 32 % (10-50); Mean Corpuscular HGB Conc 33.1 g/dl (31.0-37.0); Mean Corpuscular Hemoglobin 29.3 pg (25.0-35.0); Mean Corpuscular Volume 89 fL (80-100); Monocytes # (Auto) 0.5 Thou/mm3 (0.0-0.8); Monocytes % (Auto) 6 % (0-12); Neutrophils # (Auto) 5.2 Thou/mm3 (1.8-7.7); Neutrophils % (Auto) 61 % (37-80); Nucleated Red Blood Cell # 0.00 Thou/mm3 (0.00-0.00); Nucleated Red Blood Cell % 0 /100 WBC (0); Platelet Count 322 Thou/mm3 (140-440); RDW Standard Deviation 56.8 fL (36.4-46.3); Red Blood Count 4.64 Miln/mm3 (4.00-5.20); White Blood Count 8.6 Thou/mm3 (3.6-11.0)
[2024-12-22 09:44] LABS: Glucose Estimated Average 194 mg/dL (80-131); Hemoglobin A1C 8.4 % Hgb (4.8-6.0)
[2024-12-22 09:57] LABS: Alanine Aminotransferase 29 U/L (10-49); Albumin, Serum 4.2 gm/dL (3.4-4.8); Albumin/Globulin Ratio 1.6 (1.2-2.2); Alkaline Phosphatase 243 U/L (46-116); Anion Gap 10 (7-16); Aspartate Amino Transferase 37 U/L (0-34); BUN/Creatinine Ratio 18 Ratio (12-20); Bilirubin,Total 0.8 mg/dL (0.3-1.2); Blood Urea Nitrogen 14 mg/dL (9-23); Calcium 9.7 mg/dL (8.3-10.6); Calcium (Corrected) 9.7 mg/dL (8.5-10.1); Carbon Dioxide 29.1 mMol/L (20.0-31.0); Cardiac Risk Estimate 2.4 RATIO (3.7-5.6); Chloride 103 mMol/L (98-107); Cholesterol 139 mg/dL (132-200); Creatinine (Component) 0.8 mg/dL (0.6-1.3); Globulin 2.6 gm/dL (2.3-3.5); Glucose 197 mg/dL (74-106); HDL Cholesterol 58 mg/dL (40-60); LDL Cholesterol,Calculated 64 mg/dL (0-130); Osmolality,Calculated 288 (275-295); Potassium 3.4 mMol/L (3.4-5.1); Sodium 142 mMol/L (136-145); Thyroid Stimulating Hormone 2.85 uIU/mL (0.55-4.78); Total Protein 6.8 gm/dL (5.7-8.2); Triglycerides 85 mg/dL (30-150); eGFR > 60 See Note
[2024-12-22 09:58] LABS: Ferritin 71 ng/mL (7.3-270.7); Iron 64 mcg/dL (50-170)
[2024-12-22 10:12] LABS: Vitamin B12 705 pg/mL (211-911); Vitamin D 25 Hydroxy Total 42.7 ng/mL (7.3-40.2)
== END | disposition home or self-care (01) ==
PROVIDERS: PCP Physician Assistant; Referring Provider Physician Assistant; Visit Provider Physician Assistant
DX: Z00.00 Encounter for general adult medical examination without abnormal findings (principal); E11.65 Type 2 diabetes mellitus with hyperglycemia; E55.9 Vitamin D deficiency, unspecified; E03.9 Hypothyroidism, unspecified; I10 Essential (primary) hypertension; E78.5 Hyperlipidemia, unspecified; D50.9 Iron deficiency anemia, unspecified
CPT/HCPCS: 36415; 80053; 80061; 81001; 82043; 82306; 82570; 82607; 82728; 83036; 83540; 84443; 85025

== ENCOUNTER → 2024-12-25 | Outpatient (CLI) | payer MEDICARE, MEDICAID, SELFPAY ==
[2024-12-25 12:21] LABS: Collection Type, Urine Clean Catch
[2024-12-25 14:31] LABS: Creatinine MALB Rnd Ur 96 mg/dL (30-125); Microalbumin Creat Ratio 5 mg/gCrea (<30); Microalbumin, Random Urine 5 mg/L (0-300)
[2024-12-25 14:50] LABS: Amorphous Crystals,Urine Present (Absent); Bacteria,Urine 3+; Bilirubin,Urine Negative (Negative); Blood,Urine Negative (Negative); Color,Urine Yellow (Lt Yel-Yel); Glucose, Urine Negative (Negative); Ketones,Urine Negative (Negative); Leukocyte Esterase,Urine Positive (Negative); Nitrite,Urine Positive (Negative); PH,Urine 5.5 (5.0-7.0); Protein,Urine Negative (Neg - Trace); RBC,Urine < 1 /hpf (0-3); Specific Gravity,Urine 1.022 (1.001-1.035); Squamous Epithelial Cell,Urine 7 /hpf (0-5); Urobilinogen,Urine Negative mg/dL (0.0-1.0); WBC,Urine 49 /hpf (0-5)
[2024-12-25 15:09] LABS: Clarity,Urine Hazy (Clear/Hazy); Culture Indicated,Urine Yes
[2025-01-01 06:38] LABS: Fecal Globin Result NOT DETECTED (NOT DETECTED)
== END | disposition home or self-care (01) ==
LOC: SLDO 12:12
PROVIDERS: Referring Provider Physician Assistant; Visit Provider Physician Assistant
DX: Z00.00 Encounter for general adult medical examination without abnormal findings (principal); E11.65 Type 2 diabetes mellitus with hyperglycemia; E55.9 Vitamin D deficiency, unspecified; E03.9 Hypothyroidism, unspecified; I10 Essential (primary) hypertension; E78.5 Hyperlipidemia, unspecified; D50.9 Iron deficiency anemia, unspecified; Z12.11 Encounter for screening for malignant neoplasm of colon
CPT/HCPCS: 81001; 82043; 82274; 82570; 87077; 87086; 87186; G0328

== ENCOUNTER 2025-01-24 10:27 | Emergency (ER) | payer OTHER, MEDICAID, SELFPAY ==
[2025-01-24 10:40] VITALS: BP 152/81; PULSE 88; RESP 16; TEMP 36.4; O2SAT 98; BMI 31.8
--- NOTE | 2025-01-24 10:49 | XR_ITS ---
Examination: Duplex scan of the lower extremity, unilateral right complete Date and time of exam: January 24 2025, 1140 hours INDICATIONS: Right leg pain discoloration after falling 8 days ago Technique: Duplex scan of the extremity veins using B-mode/grayscale imaging and Doppler spectral analysis and color flow Attention is directed to internal echogenicity, compression and augmentation involving these veins, color flow assessment, spectral analysis Findings: Major deep venous structures in the extremity demonstrate normal course and caliber. No diagnostic visualization posterior tibial vein There is no evidence of deep vein thrombosis. Normal color flow and spectral analysis Impression: Limited study no DVT noted Soft tissue complex mass at the area of concern anterior medial right knee, consider hematoma, clinical correlation advised and follow-up recommended.
--- NOTE | 2025-01-24 10:49 | XR_ITS ---
Examination: Hand, right 2 views Technique: AP lateral right hand 2 views Date and time: January 24, 2025, 11:41 a.m. INDICATIONS: Patient fell last week with injury to the hand, hand pain. FINDINGS: Severe osteopenia No acute fracture No dislocation IMPRESSION: No definite acute fracture Given the severe osteopenia, recommend short-term follow-up hand films as clinically warranted
--- NOTE | 2025-01-24 10:49 | XR_ITS ---
Examination: Tibia-Fibula, right, 2 views Technique: Tibia-fibula AP lateral 2 views Date and time of exam: January 24 2025, 1131 hours INDICATIONS: Patient fell last week with injury to the lower leg, lower leg pain. FINDINGS: Severe osteopenia No fracture or dislocation IMPRESSION: Severe osteopenia No fracture depicted
--- NOTE | 2025-01-24 10:49 | XR_ITS ---
Examination: Foot, right, 3 views Technique: AP, oblique, lateral views foot, 3 views Date and time of exam: January 24, 2025, 1131 hours INDICATIONS: Patient fell last week with injury of the foot, foot pain FINDINGS: Severe osteopenia No definite acute fracture Large plantar bony calcaneal spur IMPRESSION: No definite acute fracture Recommend short-term follow-up given the severe osteopenia, as clinically warranted
--- NOTE | 2025-01-24 10:49 | PD.EDRME ---
Rapid Medical Screening Exam RME Arrival date/time: 01/24/25 10:27 89-year-old female presents to the emergency department today send they had a fall 8 days ago patient reports pain to the right lower extremity as well as the right hand Chief Complaint: Fall Vital signs: Vital Signs Temperature 97.5 F 01/24/25 10:40 Pulse Rate 88 01/24/25 10:40 Respiratory Rate 16 01/24/25 10:40 Blood Pressure 152/81 H 01/24/25 10:40 Pulse Oximetry (%) 98 01/24/25 10:40 Oxygen Delivery Method Room Air 01/24/25 10:40 Vital signs reviewed by provider: Yes Exam: On exam patient has ecchymosis right lower extremity with pain and swelling On exam patient has bruising and swelling to right lower extremity as well as abrasion to the right hand with swelling to the right hand Clinical Impression: Labs and imaging obtained
[2025-01-24 11:21] LABS: Lactate (Lactic Acid) 1.5 mMol/L (0.4-2.0)
[2025-01-24 11:25] LABS: Basophils # (Auto) 0.0 Thou/mm3 (0.0-0.2); Basophils % (Auto) 0 % (0-2.5); Eosinophils # (Auto) 0.1 Thou/mm3 (0.0-0.5); Eosinophils % (Auto) 1 % (0-10); Hematocrit 38.1 % (36.0-46.0); Hemoglobin 12.5 g/dL (12.0-16.0); Immature Granulocytes Auto 0.13 Thou/mm3 (0.00-0.00); Lymphocytes # (Auto) 2.5 Thou/mm3 (1.0-4.8); Lymphocytes % (Auto) 22 % (10-50); Mean Corpuscular HGB Conc 32.8 g/dl (31.0-37.0); Mean Corpuscular Hemoglobin 29.7 pg (25.0-35.0); Mean Corpuscular Volume 91 fL (80-100); Monocytes # (Auto) 0.7 Thou/mm3 (0.0-0.8); Monocytes % (Auto) 7 % (0-12); Neutrophils # (Auto) 7.7 Thou/mm3 (1.8-7.7); Neutrophils % (Auto) 69 % (37-80); Nucleated Red Blood Cell # 0.02 Thou/mm3 (0.00-0.00); Nucleated Red Blood Cell % 0 /100 WBC (0); Platelet Count 400 Thou/mm3 (140-440); RDW Standard Deviation 46.0 fL (36.4-46.3); Red Blood Count 4.21 Miln/mm3 (4.00-5.20); White Blood Count 11.2 Thou/mm3 (3.6-11.0)
[2025-01-24 11:38] LABS: INR 1.0 (0.9-1.3); Partial Thromboplastin Time 33.1 Seconds (22.0-36.0); Prothrombin Time 10.4 Seconds (9.0-12.2)
[2025-01-24 11:48] LABS: Alanine Aminotransferase 13 U/L (10-49); Albumin, Serum 4.5 gm/dL (3.4-4.8); Albumin/Globulin Ratio 1.9 (1.2-2.2); Alkaline Phosphatase 205 U/L (46-116); Anion Gap 9 (7-16); Aspartate Amino Transferase 27 U/L (0-34); BUN/Creatinine Ratio 11 Ratio (12-20); Bilirubin,Total 0.7 mg/dL (0.3-1.2); Blood Urea Nitrogen 9 mg/dL (9-23); C-Reactive Protein 4.2 mg/dL (0.0-0.9); Calcium 9.9 mg/dL (8.3-10.6); Calcium (Corrected) 9.9 mg/dL (8.5-10.1); Carbon Dioxide 28.7 mMol/L (20.0-31.0); Chloride 103 mMol/L (98-107); Creatinine (Component) 0.8 mg/dL (0.6-1.3); Estimated Creatinine Clearance 43.6 mL/min (>60); Globulin 2.4 gm/dL (2.3-3.5); Glucose 233 mg/dL (74-106); Osmolality,Calculated 286 (275-295); Potassium 4.2 mMol/L (3.4-5.1); Procalcitonin 0.06 ng/ml (0.0-0.49); Sodium 141 mMol/L (136-145); Total Protein 6.9 gm/dL (5.7-8.2); eGFR > 60 See Note
[2025-01-24 11:56] LABS: Sed Rate (ESR) 73 mm/hr (0-30)
--- NOTE | 2025-01-24 13:42 | PD.EDFALL ---
ED Fall Injury RME/HPI General Chief Complaint: Fall Stated Complaint: FALL 1 WK AGO, WOUND R) FOOT IS WORSE Time Seen by Provider: 01/24/25 11:16 Arrival date/time: 01/24/25 10:27 89-year-old female patient was brought in by family for evaluation regarding contusion hematoma, abrasion, right lower leg. Patient sustained a ground-level fall about a week ago, landed on the right side of the body sustaining abrasion to the proximal anterior leg, and contusion hematoma. Also sustained abrasion to the hand. Patient denies any LOC patient not take any blood thinner patient is ambulatory with assistance. Denies any other complaints no fever noted RME / HPI RME / HPI Narrative: 01/24/25 10:27 89-year-old female presents to the emergency department today send they had a fall 8 days ago patient reports pain to the right lower extremity as well as the right hand Exam: On exam patient has ecchymosis right lower extremity with pain and swelling On exam patient has bruising and swelling to right lower extremity as well as abrasion to the right hand with swelling to the right hand Impression: Labs and imaging obtained Related Data Home Medications ?Medication ?Instructions ?Recorded ?Confirmed cilostazol 50 mg tablet 50 mg PO QDAY 04/30/22 09/15/23 isosorbide mononitrate 30 mg 30 mg PO QAM 04/30/22 09/15/23 tablet,extended release 24 hr levothyroxine 50 mcg tablet 50 mcg PO QDAY 04/30/22 09/15/23 amiodarone 200 mg tablet (Pacerone) 200 mg PO QDAY 02/17/23 09/15/23 amlodipine 5 mg tablet (Norvasc) 5 mg PO 2XD 02/17/23 09/15/23 carvedilol 6.25 mg tablet 6.25 mg PO BID 02/17/23 09/15/23 gabapentin 300 mg capsule 300 mg PO 2XD 02/17/23 09/15/23 (Neurontin) hydroxyzine HCl 10 mg tablet 10 mg PO QPM PRN Itching 02/17/23 09/15/23 insulin degludec 100 unit/mL 100 unit subcut QPM 02/17/23 02/17/23 subcutaneous solution (Tresiba U-100 Insulin) melatonin 3 mg tablet 6 mg PO QPM 02/17/23 09/15/23 pantoprazole 40 mg tablet,delayed 40 mg PO 1XD 02/17/23 09/15/23 release (Protonix) revefenacin 175 mcg/3 mL solution 175 mcg inhalation 1XD 02/17/23 02/17/23 for nebulization rosuvastatin 10 mg tablet 10 mg PO QPM 02/17/23 09/15/23 alendronate 70 mg tablet 70 mg PO QWEEK 09/15/23 09/15/23 Previous Rx's ?Medication ?Instructions ?Recorded apixaban 2.5 mg tablet (Eliquis) 2.5 mg PO BID #60 tabs 06/10/20 furosemide 20 mg tablet (Lasix) 20 mg PO QAM #7 tabs 02/26/23 potassium chloride 20 mEq 20 meq PO QDAY #7 tabs 02/26/23 tablet,extended release naproxen 500 mg tablet (Naprosyn) 500 mg PO BID PRN pain #14 tabs 05/27/23 meloxicam 15 mg tablet 15 mg PO QDAY #14 tabs 07/30/23 ciprofloxacin HCl 500 mg tablet 500 mg PO BID #14 tabs 02/20/24 (Cipro) meloxicam 7.5 mg tablet 7.5 mg PO QDAY #10 tabs 02/20/24 ondansetron 4 mg disintegrating 4 mg PO Q8H #10 tabs 02/20/24 tablet docusate sodium 100 mg capsule 100 mg PO BID PRN constipation #20 03/11/24 (Dulcolax Stool Softener caps (docusate)) docusate sodium 100 mg capsule 100 mg PO BID PRN constipation #20 03/11/24 (Dulcolax Stool Softener caps (docusate)) cefuroxime axetil 500 mg tablet 500 mg PO BID #14 tabs 06/29/24 cephalexin 500 mg capsule 500 mg PO QID #40 caps 08/16/24 acetaminophen 650 mg 650 mg PO Q8H PRN pain #60 tabs 01/24/25 tablet,extended release (Tylenol 8 Hour) amoxicillin 875 mg-potassium 1 tab PO BID #14 tabs 01/24/25 clavulanate 125 mg tablet Allergies Allergy/AdvReac Type Severity Reaction Status Date / Time No Known Allergies Allergy Verified 01/24/25 10:32 Review of Systems Review of Systems Narrative Review of Systems: Review of system reviewed and within normal limits except mentioned in HPI ED Exam Narrative Physical exam: VITAL SIGNS: Reviewed. GENERAL APPEARANCE: Alert and interactive, follows commands, no acute distress, HEAD AND FACE: Non-traumatic. ENT: PERRL, pink conjunctivitis, eyelid no trauma, Mucous membrane moist. NECK: Supple, nontender, no nuchal rigidity. CHEST: No tenderness, no crepitus, no paradoxical movement, no retractions. LUNGS: Clear, well ventilated, symmetric, no rales, no wheezing, no ronchi, no stridor, good breath sounds bilaterally. HEART: Regular rate, regular rhythm, no murmur, no gallops. ABDOMEN: Soft, positive bowel sounds, nondistended, no guarding, nontender, no rebound, no masses, RECTAL: Deferred. GENITAL: Deferred. NEUROLOGICAL: Gross motor function intact sensory function intact, Appropriate for age. MUSCULOSKELETAL: low back nontender, full range of motion. EXTREMITIES: Contusion hematoma bruising noted to the right lower extremity abrasion to the proximal anterior leg, abrasion to the right hand dorsal aspect full range of motion of the hands and wrist full range of motion of the right knee, no deformity distal neurovascular status intact SKIN: Color pink, dry, no rash, no lacerations, no abrasions, no contusions. LYMPHATICS: Deferred. Course Quality Measures none Orders Category Date Time Status US venous doppler LE RT Stat Exams 01/24/25 10:49 Completed XR foot comp RT min 3V Stat Exams 01/24/25 10:49 Completed XR hand comp RT min 3V Stat Exams 01/24/25 10:49 Completed XR tibia fibula RT 2V Stat Exams 01/24/25 10:49 Completed Blood Culture (Lab) Stat Lab 01/24/25 11:16 Received CBC Stat Lab 01/24/25 11:10 Completed CMP [Comprehensive Metabolic Panel] Stat Lab 01/24/25 11:10 Completed CRP [C-Reactive Protein] Stat Lab 01/24/25 11:10 Completed ESR [Sed Rate (ESR)] Stat Lab 01/24/25 11:10 Completed Lactic Acid [Lactate (Lactic Acid)] Stat Lab 01/24/25 11:10 Completed PT [Prothrombin Time with INR] Stat Lab 01/24/25 11:10 Completed PTT [Partial Thromboplastin Time] Stat Lab 01/24/25 11:10 Completed Procalcitonin Stat Lab 01/24/25 11:10 Completed Vital Signs Vital signs: Vital Signs Temperature 97.5 F 01/24/25 10:40 Pulse Rate 88 01/24/25 10:40 Respiratory Rate 16 01/24/25 10:40 Blood Pressure 152/81 H 01/24/25 10:40 Pulse Oximetry (%) 98 01/24/25 10:40 Oxygen Delivery Method Room Air 01/24/25 10:40 Fall MDM Narrative MDM Narrative:: 01/24/25 10:27 89-year-old female patient was brought in by family for evaluation regarding contusion hematoma, abrasion, right lower leg. Patient sustained a ground-level fall about a week ago, landed on the right side of the body sustaining abrasion to the proximal anterior leg, and contusion hematoma. Also sustained abrasion to the hand. Patient denies any LOC patient not take any blood thinner patient is ambulatory with assistance. Denies any other complaints no fever noted Patient's laboratory workup came back unremarkable. Ultrasound of the lower extremities negative for DVT except for soft tissue hematoma. X-ray tibia-fibula negative for fracture x-ray of the hand negative for fracture x-ray of foot negative for fracture. Results discussed with the patient. Patient will be given antibiotic for beginning cellulitis of right lower leg. Stable for discharge home Patient data External records reviewed:: None Clinical information provided by:: patient and family Social determinants that could affect healthcare access:: none Patient has the following chronic illnesses:: Hypertension How is presenting disease/condition affected by chronic disease/condition?: uneffected by Evaluation data The following diagnostics were reviewed and interpreted by me:: lab results and radiology exam(s) Lab and/or radiology exams considered but not ordered:: None Interpretation Summary: None Medications / Prescriptions Medications or Prescriptions considered but not ordered:: None Medication administrations:: None Consultations Consultation(s) initiated? (list below): No Diagnosis Fall Differential Diagnosis: concussion with loss of consciousness (Soft tissue hematoma leg, abrasion leg, abrasion hand, cellulitis leg status post fall) Most likely diagnosis given after review of the tests above:: Extremities hematoma leg, abrasion leg, cellulitis leg status post fall Admission Indicated Admission indicated?: not indicated Admission Request Was there a request for admission?: No Disposition Plan Disposition Plan: Discharge Discharge Attestation Discharge Attestation: The patient and all family members were given an opportunity to ask questions and understood the discharge instructions. Discharge instructions specifically effects, indications for sooner follow up or return to the emergency department, and the expected course of current diagnosis. Patient condition: Stable Discharge Plan Plan Patient Disposition: HOME (Self Care) Discharge Disposition comment: stable Prescriptions/Referrals Prescriptions/Med Rec: New amoxicillin-pot clavulanate 875-125 mg tablet 1 tab PO BID Qty: 14 0RF acetaminophen [Tylenol 8 Hour] 650 mg tablet extended release 650 mg PO Q8H PRN (Reason: pain) Qty: 60 0RF No Action Eliquis 2.5 mg tablet 2.5 mg PO BID Qty: 60 0RF potassium chloride 20 mEq tablet extended release 20 meq PO QDAY Qty: 7 0RF furosemide [Lasix] 20 mg tablet 20 mg PO QAM Qty: 7 0RF alendronate 70 mg tablet 70 mg PO QWEEK Patient Comments: TAKE 1 TABLET BY MOUTH WEEKLY 30 MINUTES BEFORE FIRST FOOD OR BEVERAGE OR MEDICINE OF THE DAY WITH WATER ciprofloxacin HCl [Cipro] 500 mg tablet 500 mg PO BID Qty: 14 0RF ondansetron 4 mg tablet,disintegrating 4 mg PO Q8H Qty: 10 0RF meloxicam 7.5 mg tablet 7.5 mg PO QDAY Qty: 10 0RF cephalexin 500 mg capsule 500 mg PO QID Qty: 40 0RF levothyroxine 50 mcg tablet 50 mcg PO QDAY Patient Comments: TAKE 1 TABLET BY MOUTH ONCE 30 MINUTES BEFORE BREAKFAST cilostazol 50 mg tablet 50 mg PO QDAY Patient Comments: TAKE 1 TABLET BY MOUTH TWICE DAILY isosorbide mononitrate 30 mg tablet extended release 24 hr 30 mg PO QAM Patient Comments: TAKE 1 TABLET BY MOUTH EVERY DAY IN THE MORNING carvedilol 6.25 mg tablet 6.25 mg PO BID Patient Comments: TAKE 1 TABLET BY MOUTH TWICE DAILY amiodarone [Pacerone] 200 mg Tablet 200 mg PO QDAY melatonin 3 mg Tablet 6 mg PO QPM amlodipine [Norvasc] 5 mg Tablet 5 mg PO 2XD pantoprazole [Protonix] 40 mg Tablet,Delayed Release (Dr/Ec) 40 mg PO 1XD gabapentin [Neurontin] 300 mg Capsule 300 mg PO 2XD hydroxyzine HCl 10 mg Tablet 10 mg PO QPM PRN (Reason: Itching) rosuvastatin 10 mg Tablet 10 mg PO QPM revefenacin 175 mcg/3 mL Solution For Nebulization 175 mcg INHALATION 1XD insulin degludec [Tresiba U-100 Insulin] 100 unit/mL Solution 100 unit SUBCUT QPM naproxen [Naprosyn] 500 mg tablet 500 mg PO BID PRN (Reason: pain) Qty: 14 0RF meloxicam 15 mg tablet 15 mg PO QDAY Qty: 14 0RF docusate sodium [Dulcolax Stool Softener (dss)] 100 mg capsule 100 mg PO BID PRN (Reason: constipation) Qty: 20 0RF docusate sodium [Dulcolax Stool Softener (dss)] 100 mg capsule 100 mg PO BID PRN (Reason: constipation) Qty: 20 0RF cefuroxime axetil 500 mg tablet 500 mg PO BID Qty: 14 0RF Referrals: Usha Sterling PA-C [Primary Care Provider] - In 1 week Problem List Clinical Impression: Fall, Hematoma of leg, Cellulitis Patient/Caregiver Discharge Instructions Discharge Activity: activity as tolerated Education Materials: ED Cellulitis Additional Instructions: Thank you for the opportunity for serving you today. You are stable for discharged . You are advised to: Follow-up with your PCP in 1 to 2 days Return to ED for worsening of symptoms Increase oral fluids Take medication as prescribed Print Language: Puerto Rican Stand Alone Forms: Karen Award Info., Patient Portal Info Letter PNIO/MARTIN Supervising Physician JOLLY Supervising Physician: MD Paras
== END 2025-01-24 14:07 | disposition home or self-care (01) ==
PROVIDERS: Nurse Practitioner Primary Care; Emergency Provider Family Medicine; PCP Physician Assistant
DX: S80.811A Abrasion, right lower leg, initial encounter (principal); W19.XXXA Unspecified fall, initial encounter; Z79.01 Long term (current) use of anticoagulants
CPT/HCPCS: 36415; 73130; 73590; 73630; 80053; 83605; 84145; 85025; 85610; 85652; 85730; 86140; 87040; 93971; 99283

== ENCOUNTER 2025-02-11 19:52 | Emergency (ER) | payer OTHER, MEDICAID, SELFPAY ==
[2025-02-11 20:09] VITALS: BP 147/65; PULSE 90; RESP 20; TEMP 36.6; O2SAT 97
--- NOTE | 2025-02-11 20:12 | PD.EDRME ---
Rapid Medical Screening Exam RME Arrival date/time: 02/11/25 19:52 This is a case of 89-year-old female who have history of hypertension diabetes came in in the emergency room due to generalized body pain and severe headache patient daughter states that she takes patient blood sugar and noted to be 500 thus decided to bring patient here in the emergency room Chief Complaint: General Adult/Misc Complain Time Seen by Provider: 02/11/25 20:10 Vital signs: Vital Signs Temperature 97.9 F 02/11/25 20:09 Pulse Rate 90 02/11/25 20:09 Respiratory Rate 20 02/11/25 20:09 Blood Pressure 147/65 H 02/11/25 20:09 Pulse Oximetry (%) 97 02/11/25 20:09 Oxygen Delivery Method Room Air 02/11/25 20:09 Exam: Awake alert oriented x 4 no focal deficit GCS 15/15 steady gait Clinical Impression: Headache hyperglcycemia
[2025-02-11 20:54] LABS: Base Excess, Venous 6 (-3-3); Basophils # (Auto) 0.0 Thou/mm3 (0.0-0.2); Basophils % (Auto) 0 % (0-2.5); Eosinophils # (Auto) 0.1 Thou/mm3 (0.0-0.5); Eosinophils % (Auto) 1 % (0-10); Hematocrit 33.2 % (36.0-46.0); Hemoglobin 11.5 g/dL (12.0-16.0); Immature Granulocytes Auto 0.09 Thou/mm3 (0.00-0.00); Lymphocytes # (Auto) 2.7 Thou/mm3 (1.0-4.8); Lymphocytes % (Auto) 29 % (10-50); Mean Corpuscular HGB Conc 34.6 g/dl (31.0-37.0); Mean Corpuscular Hemoglobin 29.5 pg (25.0-35.0); Mean Corpuscular Volume 85 fL (80-100); Monocytes # (Auto) 0.9 Thou/mm3 (0.0-0.8); Monocytes % (Auto) 9 % (0-12); Neutrophils # (Auto) 5.6 Thou/mm3 (1.8-7.7); Neutrophils % (Auto) 60 % (37-80); Nucleated Red Blood Cell # 0.02 Thou/mm3 (0.00-0.00); Nucleated Red Blood Cell % 0 /100 WBC (0); O2 Saturation, Venous 60 % (96-97); PCO2, Venous 48 mmHg (36-56); PO2, Venous 31 mmHg (15-58); Platelet Count 418 Thou/mm3 (140-440); RDW Standard Deviation 45.1 fL (36.4-46.3); Red Blood Count 3.90 Miln/mm3 (4.00-5.20); White Blood Count 9.4 Thou/mm3 (3.6-11.0); pH, Venous 7.42 (7.33-7.66)
[2025-02-11] MEDS: SODIUM CHLORIDE 0.9% 1000 ML 1,000 ML 999 ML IV (20:58)
[2025-02-11 21:12] VITALS: PULSE 87; RESP 15; O2SAT 98
[2025-02-11 21:14] LABS: Alanine Aminotransferase 18 U/L (10-49); Albumin, Serum 3.8 gm/dL (3.4-4.8); Albumin/Globulin Ratio 1.4 (1.2-2.2); Alkaline Phosphatase 209 U/L (46-116); Anion Gap 11 (7-16); Aspartate Amino Transferase 30 U/L (0-34); BUN/Creatinine Ratio 7 Ratio (12-20); Bilirubin,Total 0.8 mg/dL (0.3-1.2); Blood Urea Nitrogen 7 mg/dL (9-23); Calcium 9.0 mg/dL (8.3-10.6); Calcium (Corrected) 9.2 mg/dL (8.5-10.1); Carbon Dioxide 29.0 mMol/L (20.0-31.0); Chloride 90 mMol/L (98-107); Creatinine (Component) 1.0 mg/dL (0.6-1.3); Globulin 2.7 gm/dL (2.3-3.5); Osmolality,Calculated 282 (275-295); Potassium 3.4 mMol/L (3.4-5.1); Sodium 130 mMol/L (136-145); Total Protein 6.5 gm/dL (5.7-8.2); eGFR 54 See Note
[2025-02-11 21:15] LABS: Lactate (Lactic Acid) 2.9 mMol/L (0.4-2.0)
[2025-02-11 21:15] LABS: Collection Type, Urine Clean Catch
[2025-02-11 21:18] LABS: Glucose 533 mg/dL (74-106)
--- NOTE | 2025-02-11 21:25 | PD.EDADULT ---
ED General RME/HPI General Chief complaint: General Adult/Misc Complain Stated complaint: BLOOD SUGAR HIGH Time Seen by Provider: 02/11/25 20:10 Arrival date/time: 02/11/25 19:52 Limitations: no limitations RME / HPI RME / HPI narrative: 02/11/25 19:52 This is a case of 89-year-old female who have history of hypertension diabetes came in in the emergency room due to generalized body pain and headache patient daughter states that she takes patient blood sugar and noted to be 500 thus decided to bring patient here in the emergency room. Has noticed over the last 3 days sugar has been rising from 250, 300s, and today reached a high of 400s. On Tresiba 24 units. Today at 1400 was given 14 units of rapid acting insulin. But states did not work and they gave it a few hours. Patient is very reluctant to be here and does not want to stay here and states she does not plan to stay here. No documented fever but states feels chills. No vomiting no diarrhea. No history of being admitted for DKA or hypoglycemia. Exam: Awake alert oriented x 4 no focal deficit GCS 15/15 steady gait Impression: Headache hyperglcycemia Related Data Home Medications ?Medication ?Instructions ?Recorded ?Confirmed cilostazol 50 mg tablet 50 mg PO QDAY 04/30/22 09/15/23 isosorbide mononitrate 30 mg 30 mg PO QAM 04/30/22 09/15/23 tablet,extended release 24 hr levothyroxine 50 mcg tablet 50 mcg PO QDAY 04/30/22 09/15/23 amiodarone 200 mg tablet (Pacerone) 200 mg PO QDAY 02/17/23 09/15/23 amlodipine 5 mg tablet (Norvasc) 5 mg PO 2XD 02/17/23 09/15/23 carvedilol 6.25 mg tablet 6.25 mg PO BID 02/17/23 09/15/23 gabapentin 300 mg capsule 300 mg PO 2XD 02/17/23 09/15/23 (Neurontin) hydroxyzine HCl 10 mg tablet 10 mg PO QPM PRN Itching 02/17/23 09/15/23 insulin degludec 100 unit/mL 100 unit subcut QPM 02/17/23 02/17/23 subcutaneous solution (Tresiba U-100 Insulin) melatonin 3 mg tablet 6 mg PO QPM 02/17/23 09/15/23 pantoprazole 40 mg tablet,delayed 40 mg PO 1XD 02/17/23 09/15/23 release (Protonix) revefenacin 175 mcg/3 mL solution 175 mcg inhalation 1XD 02/17/23 02/17/23 for nebulization rosuvastatin 10 mg tablet 10 mg PO QPM 02/17/23 09/15/23 alendronate 70 mg tablet 70 mg PO QWEEK 09/15/23 09/15/23 Previous Rx's ?Medication ?Instructions ?Recorded apixaban 2.5 mg tablet (Eliquis) 2.5 mg PO BID #60 tabs 06/10/20 furosemide 20 mg tablet (Lasix) 20 mg PO QAM #7 tabs 02/26/23 potassium chloride 20 mEq 20 meq PO QDAY #7 tabs 02/26/23 tablet,extended release naproxen 500 mg tablet (Naprosyn) 500 mg PO BID PRN pain #14 tabs 05/27/23 meloxicam 15 mg tablet 15 mg PO QDAY #14 tabs 07/30/23 ciprofloxacin HCl 500 mg tablet 500 mg PO BID #14 tabs 02/20/24 (Cipro) meloxicam 7.5 mg tablet 7.5 mg PO QDAY #10 tabs 02/20/24 ondansetron 4 mg disintegrating 4 mg PO Q8H #10 tabs 02/20/24 tablet docusate sodium 100 mg capsule 100 mg PO BID PRN constipation #20 03/11/24 (Dulcolax Stool Softener caps (docusate)) docusate sodium 100 mg capsule 100 mg PO BID PRN constipation #20 03/11/24 (Dulcolax Stool Softener caps (docusate)) cefuroxime axetil 500 mg tablet 500 mg PO BID #14 tabs 06/29/24 cephalexin 500 mg capsule 500 mg PO QID #40 caps 08/16/24 acetaminophen 650 mg 650 mg PO Q8H PRN pain #60 tabs 01/24/25 tablet,extended release (Tylenol 8 Hour) amoxicillin 875 mg-potassium 1 tab PO BID #14 tabs 01/24/25 clavulanate 125 mg tablet acetaminophen 500 mg tablet 1,000 mg (2 x 500 mg) PO Q6H PRN 02/11/25 (Tylenol Extra Strength) fever or pain #30 tabs amoxicillin 875 mg-potassium 1 tab PO BID 10 days #20 tabs 02/11/25 clavulanate 125 mg tablet Allergies Allergy/AdvReac Type Severity Reaction Status Date / Time No Known Allergies Allergy Verified 02/13/25 18:13 Review of Systems Review of Systems Systems Reviewed: All systems reviewed, normal except as documented Constitutional Constitutional: Reports chills Gastrointestinal Gastrointestinal: Denies abdominal pain Musculoskeletal Musculoskeletal: Reports as per HPI ED Exam General Limitations: Present no limitations General appearance: Present alert and in no apparent distress Head Head exam: Present atraumatic Eye Eye exam: Present normal appearance, PERRL and EOMI ENT ENT exam: Present normal exam, normal oropharynx and mucous membranes moist Neck Neck exam: Present normal inspection, full ROM and trachea midline Chest Chest inspection: Present normal inspection and symmetric chest wall rise Respiratory Respiratory exam: Present normal lung sounds bilaterally Cardiovascular Cardiovascular exam: Present regular rate, normal rhythm and normal heart sounds Abdominal Exam Abdominal exam: Present soft, normal bowel sounds and other (Bilateral flank TTP) Extremities Exam Extremities exam: Present normal inspection and full ROM Back Exam Back exam: Present normal inspection and full ROM Neurological Exam Neurological exam: Present alert, oriented X3 and CN II-XII intact Psychiatric Psychiatric exam: Present normal affect and normal mood Skin Skin exam: Present warm, dry, intact and normal color Course Quality Measures none Orders Category Date Time Status CBC Stat Lab 02/11/25 20:20 Completed Comprehensive Metabolic Panel Stat Lab 02/11/25 20:20 Completed Lactic Acid [Lactate (Lactic Acid)] Stat Lab 02/11/25 20:20 Completed Urinalysis Stat Lab 02/11/25 20:37 Completed Venous Blood Gas Stat Lab 02/11/25 20:20 Completed Acetaminophen Tab [Tylenol Tab] Med 02/11/25 22:22 Discontinued 650 mg PO X1 ONE Insulin Regular Med 02/11/25 20:10 Discontinued 10 unit IV X1 ONE Insulin Regular Med 02/11/25 21:04 Discontinued 10 unit SC X1 ONE Ketorolac Inj [Toradol Inj] Med 02/11/25 22:22 Discontinued 30 mg IVP X1 ONE Sodium Chloride 0.9% 1000 ml [Ns] 1,000 ml Med 02/11/25 20:11 Discontinued IV 999 mls/hr cefTRIAXone/D5w 1gm IV premix [Rocephin/D5w 1gm IV Med 02/11/25 21:42 Discontinued premix] 1 gm in 50 ml IV X1 Reevaluation(s) Reevaluation #1: states wants to go home, refusing to stay, does not want CT of head, states now with iv feeling less headache. Would like meds Time: 22:23 Vital Signs Vital signs: Vital Signs Temperature 97.9 F 02/11/25 20:09 Pulse Rate 90 02/11/25 20:09 Respiratory Rate 20 02/11/25 20:09 Blood Pressure 147/65 H 02/11/25 20:09 Pulse Oximetry (%) 97 02/11/25 20:09 Oxygen Delivery Method Room Air 02/11/25 20:09 Discharge Plan Plan Patient Disposition: HOME (Self Care) Discharge Disposition comment: Follow-up with PCP in 2 to 3 days Prescriptions/Referrals Prescriptions/Med Rec: New acetaminophen [Tylenol Extra Strength] 500 mg tablet 1,000 mg PO Q6H PRN (Reason: fever or pain) Qty: 30 0RF amoxicillin-pot clavulanate 875-125 mg tablet 1 tab PO BID 10 Days Qty: 20 0RF No Action Eliquis 2.5 mg tablet 2.5 mg PO BID Qty: 60 0RF potassium chloride 20 mEq tablet extended release 20 meq PO QDAY Qty: 7 0RF furosemide [Lasix] 20 mg tablet 20 mg PO QAM Qty: 7 0RF alendronate 70 mg tablet 70 mg PO QWEEK Patient Comments: TAKE 1 TABLET BY MOUTH WEEKLY 30 MINUTES BEFORE FIRST FOOD OR BEVERAGE OR MEDICINE OF THE DAY WITH WATER ciprofloxacin HCl [Cipro] 500 mg tablet 500 mg PO BID Qty: 14 0RF ondansetron 4 mg tablet,disintegrating 4 mg PO Q8H Qty: 10 0RF meloxicam 7.5 mg tablet 7.5 mg PO QDAY Qty: 10 0RF cephalexin 500 mg capsule 500 mg PO QID Qty: 40 0RF amoxicillin-pot clavulanate 875-125 mg tablet 1 tab PO BID Qty: 14 0RF acetaminophen [Tylenol 8 Hour] 650 mg tablet extended release 650 mg PO Q8H PRN (Reason: pain) Qty: 60 0RF levothyroxine 50 mcg tablet 50 mcg PO QDAY Patient Comments: TAKE 1 TABLET BY MOUTH ONCE 30 MINUTES BEFORE BREAKFAST cilostazol 50 mg tablet 50 mg PO QDAY Patient Comments: TAKE 1 TABLET BY MOUTH TWICE DAILY isosorbide mononitrate 30 mg tablet extended release 24 hr 30 mg PO QAM Patient Comments: TAKE 1 TABLET BY MOUTH EVERY DAY IN THE MORNING carvedilol 6.25 mg tablet 6.25 mg PO BID Patient Comments: TAKE 1 TABLET BY MOUTH TWICE DAILY amiodarone [Pacerone] 200 mg Tablet 200 mg PO QDAY melatonin 3 mg Tablet 6 mg PO QPM amlodipine [Norvasc] 5 mg Tablet 5 mg PO 2XD pantoprazole [Protonix] 40 mg Tablet,Delayed Release (Dr/Ec) 40 mg PO 1XD gabapentin [Neurontin] 300 mg Capsule 300 mg PO 2XD hydroxyzine HCl 10 mg Tablet 10 mg PO QPM PRN (Reason: Itching) rosuvastatin 10 mg Tablet 10 mg PO QPM revefenacin 175 mcg/3 mL Solution For Nebulization 175 mcg INHALATION 1XD insulin degludec [Tresiba U-100 Insulin] 100 unit/mL Solution 100 unit SUBCUT QPM naproxen [Naprosyn] 500 mg tablet 500 mg PO BID PRN (Reason: pain) Qty: 14 0RF meloxicam 15 mg tablet 15 mg PO QDAY Qty: 14 0RF docusate sodium [Dulcolax Stool Softener (dss)] 100 mg capsule 100 mg PO BID PRN (Reason: constipation) Qty: 20 0RF docusate sodium [Dulcolax Stool Softener (dss)] 100 mg capsule 100 mg PO BID PRN (Reason: constipation) Qty: 20 0RF cefuroxime axetil 500 mg tablet 500 mg PO BID Qty: 14 0RF Referrals: Usha Sterling PA-C [Primary Care Provider] - In 1 week Problem List Clinical Impression: Diabetes mellitus with hyperglycemia, Acute UTI, Myalgia Patient/Caregiver Discharge Instructions Education Materials: Anatomy of the Female Urinary Tract, Diabetes and Kidney Disease Print Language: Dutch Stand Alone Forms: Karen Award Info., Patient Portal Info Letter PA/MARTIN Supervising Physician PA/COTTON GRADER Supervising Physician: Dr. Jonathan BEASLEY Clinical Information Provided by: patient and family Medical Records reviewed [facility] Meds/Rx considered, not ordered describe: Pain medication for home was considered with narcotics however due to age unlikely beneficial Labs/Rad/Tests considered, not ordered Describe: CT scan of head was ordered but patient declined CT scan of abdomen pelvis was considered however given diagnosis made of UTI unlikely to change the course of treatment today Labs Labs: interpreted by me Lab(s) Interpretation(s): Corrected sodium of 137 CBC within normal limit Elevated lactic acid, likely due to UTI and sugar Ketones not performed due to lab of test VBG within normal limits UA showed UTI Imaging Imaging Interpretation(s): Patient did not go through with imaging Medication Administration(s) Medication Administration History Discontinued Medications Acetaminophen (Acetaminophen 325 Mg Tablet) 650 mg PO X1 ONE Stop: 02/11/25 22:23 Last Admin: 02/11/25 22:31 Dose: 650 mg Documented By: INDIO Sodium Chloride (Ns) 1,000 mls @ 999 mls/hr IV .Q1H1M ONE Stop: 02/11/25 21:11 Last Infusion: 02/11/25 22:28 Dose: Infused Documented By: Admin: 02/11/25 20:58 Dose: 999 mls/hr Documented By: INDIO Ceftriaxone Sodium/Dextrose (Rocephin/D5w 1gm Iv Premix) 1 gm in 50 mls @ 100 mls/hr IV X1 ONE Stop: 02/11/25 22:11 Last Admin: 02/11/25 22:04 Dose: 100 mls/hr Documented By: INDIO Insulin Human Regular (Insulin Hum Regular 1 Unit/0.01 Ml (Per Unit)) 10 unit IV X1 ONE Stop: 02/11/25 20:11 Last Admin: 02/11/25 22:07 Dose: Not Given Documented By: INDIO Non-Admin Reason: Discontinued Insulin Human Regular (Insulin Hum Regular 1 Unit/0.01 Ml (Per Unit)) 10 unit SC X1 ONE Stop: 02/11/25 21:05 Last Admin: 02/11/25 22:04 Dose: 10 unit Documented By: INDIO Co-signed By: KARLI Ketorolac Tromethamine (Ketorolac Inj 30 Mg/Ml Vial) 30 mg IVP X1 ONE Stop: 02/11/25 22:23 Last Admin: 02/11/25 22:31 Dose: 30 mg Documented By: INDIO
[2025-02-11 21:28] LABS: Bilirubin,Urine Negative (Negative); Blood,Urine Negative (Negative); Clarity,Urine Clear (Clear/Hazy); Color,Urine Lt-Yellow (Lt Yel-Yel); Glucose, Urine 4+ (Negative); Ketones,Urine Negative (Negative); Leukocyte Esterase,Urine Positive (Negative); Nitrite,Urine Positive (Negative); PH,Urine 6.5 (5.0-7.0); Protein,Urine Negative (Neg - Trace); RBC,Urine 3 /hpf (0-3); Specific Gravity,Urine 1.006 (1.001-1.035); Squamous Epithelial Cell,Urine 2 /hpf (0-5); Urobilinogen,Urine Negative mg/dL (0.0-1.0); WBC,Urine 94 /hpf (0-5)
[2025-02-11 22:00] VITALS: BP 115/55; PULSE 88; RESP 21; O2SAT 97
[2025-02-11] MEDS: cefTRIAXone/D5w 1gm IV premix 1 GM/50 ML BAG IV (22:04)
[2025-02-11] MEDS: INSULIN HUM REGULAR 1 UNIT/0.01 ML (PER UNIT) 10 UNIT SC (22:04)
[2025-02-11] MEDS: ACETAMINOPHEN 325 MG TABLET 650 MG PO (22:31)
[2025-02-11] MEDS: KETOROLAC INJ 30 MG/ML VIAL IVP (22:31)
[2025-02-11 22:59] VITALS: BP 124/59; PULSE 89; RESP 18; TEMP 36.5; O2SAT 95
[2025-02-12 00:16] LABS: Reflex Lactate? Y
== END 2025-02-11 23:20 | disposition home or self-care (01) ==
PROVIDERS: Nurse Practitioner Family; Physician Assistant; Emergency Provider Emergency Medicine; PCP Physician Assistant
DX: N39.0 Urinary tract infection, site not specified (principal); E11.65 Type 2 diabetes mellitus with hyperglycemia; M79.18 Myalgia, other site; Z79.4 Long term (current) use of insulin
CPT/HCPCS: 36415; 80053; 81001; 82010; 82803; 83605; 85025; 96361; 96374; 99283; J0696; J1815; J1885; J7030; A9270

== ENCOUNTER 2025-02-13 18:08 | Emergency (ER) | payer OTHER, MEDICAID, SELFPAY ==
[2025-02-13 18:58] VITALS: BP 126/62; PULSE 84; RESP 20; TEMP 36.4; O2SAT 97
--- NOTE | 2025-02-13 19:25 | XR_ITS ---
Examination: CT cervical spine without contrast 2-D sagittal reconstructions 2-D coronal reconstructions 3-D reconstructions. Exam date and time: February 13, 20252011 hours INDICATIONS: Ground-level fall today with injury to the neck, neck pain radiating to the left shoulder CTDI:vol (mGy) 15.1 DLP: (mGycm) 275 Technique: Multiple 2 mm axial sections of the cervical spine have been obtained. The coronal and sagittal reconstructions have been obtained. 3-D reconstructions have been obtained. Low dose protocols were performed. One or more of the following dose reduction techniques were used; automated exposure control, adjustment of the mA and/or KV according to patient size, use of iterative reconstruction technique. Findings: Axial sections demonstrate intact base of the skull. C1 exhibit satisfactory relationship to the odontoid. No acute cervical vertebral body fracture seen. Alignment posterior spinous processes satisfactory. Impression: No acute cervical fracture.
--- NOTE | 2025-02-13 19:25 | XR_ITS ---
Examination: CT brain head without contrast. 2-D sagittal coronal reconstructions Date and time of exam: February 13, 20252011 hours INDICATIONS: Patient fell today with injury to the head, head pain CTDI: vol (mGy): 45.5 DLP: (mGycm): 932 Technique: Multiple CT axial sections of the brain have been obtained, 5 mm slice thickness. Contrast has not been administered. 2-D sagittal, coronal reconstructions have been obtained Low dose protocols were performed. One or more of the following dose reduction techniques were used; automated exposure control, adjustment of the mA and/or KV according to patient size, use of iterative reconstruction technique. Findings: No significant ventricular enlargement. Frontal atrophy, right sphenoid sinusitis Chronic right mastoiditis Intra-axial or extra-axial hemorrhage density is not seen. No mass effect or midline shift Basal cisterns are not remarkable. Fourth ventricle is midline. Cranial vault intact. Impression: Negative for acute hemorrhage, mass effect or midline shift
--- NOTE | 2025-02-13 19:25 | PD.EDNECK ---
ED Neck Injury Pain RME/HPI General Chief Complaint: General Adult/Misc Complain Stated Complaint: BLOOD SUGAR 455 AT HOME; NECK PAIN Time Seen by Provider: 02/13/25 19:24 Arrival date/time: 02/13/25 18:08 89F with history of HTN, DM, CAD, and CHF presents to ED with 2 days of head/neck pain w/o fall/trauma, as well as elevated BS. Patient was here 2 days ago for this with diagnosis of UTI and non-DKA/HHS hyperglycemia. Daughter with her states her behavior has been baseline. Limitations: no limitations Related Data Home Medications ?Medication ?Instructions ?Recorded ?Confirmed cilostazol 50 mg tablet 50 mg PO QDAY 04/30/22 09/15/23 isosorbide mononitrate 30 mg 30 mg PO QAM 04/30/22 09/15/23 tablet,extended release 24 hr levothyroxine 50 mcg tablet 50 mcg PO QDAY 04/30/22 09/15/23 amiodarone 200 mg tablet (Pacerone) 200 mg PO QDAY 02/17/23 09/15/23 amlodipine 5 mg tablet (Norvasc) 5 mg PO 2XD 02/17/23 09/15/23 carvedilol 6.25 mg tablet 6.25 mg PO BID 02/17/23 09/15/23 gabapentin 300 mg capsule 300 mg PO 2XD 02/17/23 09/15/23 (Neurontin) hydroxyzine HCl 10 mg tablet 10 mg PO QPM PRN Itching 02/17/23 09/15/23 insulin degludec 100 unit/mL 100 unit subcut QPM 02/17/23 02/17/23 subcutaneous solution (Tresiba U-100 Insulin) melatonin 3 mg tablet 6 mg PO QPM 02/17/23 09/15/23 pantoprazole 40 mg tablet,delayed 40 mg PO 1XD 02/17/23 09/15/23 release (Protonix) revefenacin 175 mcg/3 mL solution 175 mcg inhalation 1XD 02/17/23 02/17/23 for nebulization rosuvastatin 10 mg tablet 10 mg PO QPM 02/17/23 09/15/23 alendronate 70 mg tablet 70 mg PO QWEEK 09/15/23 09/15/23 Previous Rx's ?Medication ?Instructions ?Recorded apixaban 2.5 mg tablet (Eliquis) 2.5 mg PO BID #60 tabs 06/10/20 furosemide 20 mg tablet (Lasix) 20 mg PO QAM #7 tabs 02/26/23 potassium chloride 20 mEq 20 meq PO QDAY #7 tabs 02/26/23 tablet,extended release naproxen 500 mg tablet (Naprosyn) 500 mg PO BID PRN pain #14 tabs 05/27/23 meloxicam 15 mg tablet 15 mg PO QDAY #14 tabs 07/30/23 ciprofloxacin HCl 500 mg tablet 500 mg PO BID #14 tabs 02/20/24 (Cipro) meloxicam 7.5 mg tablet 7.5 mg PO QDAY #10 tabs 02/20/24 ondansetron 4 mg disintegrating 4 mg PO Q8H #10 tabs 02/20/24 tablet docusate sodium 100 mg capsule 100 mg PO BID PRN constipation #20 03/11/24 (Dulcolax Stool Softener caps (docusate)) docusate sodium 100 mg capsule 100 mg PO BID PRN constipation #20 03/11/24 (Dulcolax Stool Softener caps (docusate)) cefuroxime axetil 500 mg tablet 500 mg PO BID #14 tabs 06/29/24 cephalexin 500 mg capsule 500 mg PO QID #40 caps 08/16/24 acetaminophen 650 mg 650 mg PO Q8H PRN pain #60 tabs 01/24/25 tablet,extended release (Tylenol 8 Hour) amoxicillin 875 mg-potassium 1 tab PO BID #14 tabs 01/24/25 clavulanate 125 mg tablet acetaminophen 500 mg tablet 1,000 mg (2 x 500 mg) PO Q6H PRN 02/11/25 (Tylenol Extra Strength) fever or pain #30 tabs amoxicillin 875 mg-potassium 1 tab PO BID 10 days #20 tabs 02/11/25 clavulanate 125 mg tablet Allergies Allergy/AdvReac Type Severity Reaction Status Date / Time No Known Allergies Allergy Verified 02/13/25 18:13 Review of Systems Review of Systems Systems Reviewed: All systems reviewed, normal except as documented Constitutional Constitutional: Reports as per HPI and Reports headache(s) ENT Ears, Nose, Mouth, and Throat: Reports as per HPI, Reports headache(s) and Reports neck pain Musculoskeletal Musculoskeletal: Reports neck pain Neurologic Neurologic: Reports headache(s) Past Medical History Past Medical History NEUROLOGIC: Positive Neurological Disorders and Transient Ischemic Attacks (TIA); Negative Seizures CARDIAC: Positive Atrial Fibrillation, Coronary Artery Disease, Hypercholesterolemia, Hypertension and Varicose Veins; Negative Cardiac Disorders, Congestive Heart Failure or Deep Vein Thrombosis RESPIRATORY: Positive Asthma, Bronchitis and Pneumonia; Negative Chronic Obstructive Pulmonary Disease (COPD) GASTROINTESTINAL: Positive Gastrointestinal Disorders, Gastrointestinal Bleed and Obesity GENITOURINARY: Negative Genitourinary Disorders or Renal Disease REPRODUCTIVE: Positive Previous Pregnancies; Negative Pelvic Inflammatory Disease MUSCULOSKELETAL: Positive Musculoskeletal Disorders, Arthritis and Rheumatoid Arthritis ENT: Positive Cataracts and Deafness ENDOCRINE: Positive Endocrine Disorders; Negative Diabetes Mellitus Type 1 or Diabetes Mellitus Type 2 HEMATOLOGIC: Positive Anemia; Negative Blood Disorders, Sickle Cell Disease or Clotting Problems PSYCHO/SOCIAL: Negative Anxiety OTHER HISTORY: Positive Falls; Negative Hospitalization, Blood Transfusions or Anesthesia Reactions Family History FAMILY HISTORY: Negative Family Neurologic Problems, Family Psychiatric Problems, Family Respiratory Disorders, Family Cardiac Disorders, Family Gastrointestinal Problems, Family Cancer, Family Surgery or Family Anesthesia Reaction Surgical History SURGICAL: Positive Cardiac Catheterization, Angiogram, Eye Surgery and Abdominal Surgery; Negative Endocrine Surgery Social History SMOKING STATUS: Never smoker SECOND HAND EXPOSURE: No SUBSTANCE USE: does not use ED Exam General Limitations: Present no limitations General appearance: Present alert and in no apparent distress Head Head exam: Present atraumatic Eye Eye exam: Present normal appearance, PERRL and EOMI Neck Neck exam: Present normal inspection, full ROM and trachea midline Chest Chest inspection: Present normal inspection and symmetric chest wall rise Neurological Exam Neurological exam: Present alert, oriented X3 and CN II-XII intact Psychiatric Psychiatric exam: Present normal affect and normal mood Skin Skin exam: Present warm, dry, intact and normal color Course Quality Measures none Orders Category Date Time Status CT cervical spine wo con Stat Exams 02/13/25 19:[address] head/brain wo con Stat Exams 02/13/25 19:25 Completed CBC Stat Lab 02/13/25 19:45 Completed CMP [Comprehensive Metabolic Panel] Stat Lab 02/13/25 19:45 Completed Urinalysis, C/S if Indicated Stat Lab 02/13/25 20:05 Completed HYDROcodone*/APAP 5/325 [Cato 5/325] Med 02/13/25 19:26 Discontinued 1 tab PO X1 ONE Insulin Regular Med 02/13/25 20:55 Discontinued 10 unit SC X1 ONE Metoclopramide [Reglan] Med 02/13/25 19:30 Discontinued 5 mg PO X1 ONE Vital Signs Vital signs: Vital Signs Temperature 97.6 F 02/13/25 18:58 Pulse Rate 84 02/13/25 18:58 Respiratory Rate 20 02/13/25 18:58 Blood Pressure 126/62 02/13/25 18:58 Pulse Oximetry (%) 97 02/13/25 18:58 Oxygen Delivery Method Room Air 02/13/25 18:58 O2 at 97% on RA and WNLs Neck Pain MDM Narrative MDM Narrative:: 89F with history of HTN, DM, CAD, and CHF presents to ED with 2 days of head/neck pain w/o fall/trauma, as well as elevated BS. Patient was here 2 days ago for this with diagnosis of UTI and non-DKA/HHS hyperglycemia. Daughter with her states her behavior has been baseline. Physical exam reveals normal pupil response and EOM. CN II-XII grossly intact. Speech normal. Patient is afebrile, calm, and alert. CT unremarkable. No leukocytosis. CMP elevated BS, but normal anion-gap. Meds and substance abuse counselor given. Patient data External records reviewed:: [facility] previous records Clinical information provided by:: patient Social determinants that could affect healthcare access:: none Patient has the following chronic illnesses:: HTN, DM, CAD, and CHF How is presenting disease/condition affected by chronic disease/condition?: exacerbated by Evaluation data The following diagnostics were reviewed and interpreted by me:: lab results and radiology exam(s) Lab and/or radiology exams considered but not ordered:: ordered Interpretation Summary: above Medications / Prescriptions Medications or Prescriptions considered but not ordered:: ordered Medication administrations:: Medication Administration History Discontinued Medications Hydrocodone Bitart/Acetaminophen (Hydrocodone/Apap 5/325 Tablet) 1 tab PO X1 ONE Stop: 02/13/25 19:27 Last Admin: 02/13/25 21:31 Dose: 1 tab Documented By: Insulin Human Regular (Insulin Hum Regular 1 Unit/0.01 Ml (Per Unit)) 10 unit SC X1 ONE Stop: 02/13/25 20:56 Last Admin: 02/13/25 21:39 Dose: 10 unit Documented By: Co-signed By: ASHLEY Metoclopramide HCl (Metoclopramide 5 Mg Tablet) 5 mg PO X1 ONE Stop: 02/13/25 19:31 Last Admin: 02/13/25 21:31 Dose: 5 mg Documented By: SE above Consultations Consultation(s) initiated? (list below): No Diagnosis Neck Differential Diagnosis: disc disorder of cervical region, whiplash injury to neck, closed subluxation of cervical spine, fracture of cervical spine without lesion of spinal cord, cervical radiculopathy, vertebral artery dissection, torticollis, cervical spondylosis, strain of neck muscle and other (brain bleed, CVA/TIA, UTI, GROSSMAN and hyperglycemia) Most likely diagnosis given after review of the tests above:: GROSSMAN and hyperglycemia Admission Indicated Admission indicated?: not indicated Admission Request Was there a request for admission?: No Disposition Plan Disposition Plan: Discharge Discharge Attestation Discharge Attestation: The patient and all family members were given an opportunity to ask questions and understood the discharge instructions. Discharge instructions specifically effects, indications for sooner follow up or return to the emergency department, and the expected course of current diagnosis. Patient condition: Stable Discharge Plan Plan Patient Disposition: HOME (Self Care) Discharge Disposition comment: Stable Prescriptions/Referrals Prescriptions/Med Rec: No Action Eliquis 2.5 mg tablet 2.5 mg PO BID Qty: 60 0RF potassium chloride 20 mEq tablet extended release 20 meq PO QDAY Qty: 7 0RF furosemide [Lasix] 20 mg tablet 20 mg PO QAM Qty: 7 0RF alendronate 70 mg tablet 70 mg PO QWEEK Patient Comments: TAKE 1 TABLET BY MOUTH WEEKLY 30 MINUTES BEFORE FIRST FOOD OR BEVERAGE OR MEDICINE OF THE DAY WITH WATER ciprofloxacin HCl [Cipro] 500 mg tablet 500 mg PO BID Qty: 14 0RF ondansetron 4 mg tablet,disintegrating 4 mg PO Q8H Qty: 10 0RF meloxicam 7.5 mg tablet 7.5 mg PO QDAY Qty: 10 0RF cephalexin 500 mg capsule 500 mg PO QID Qty: 40 0RF amoxicillin-pot clavulanate 875-125 mg tablet 1 tab PO BID Qty: 14 0RF acetaminophen [Tylenol 8 Hour] 650 mg tablet extended release 650 mg PO Q8H PRN (Reason: pain) Qty: 60 0RF levothyroxine 50 mcg tablet 50 mcg PO QDAY Patient Comments: TAKE 1 TABLET BY MOUTH ONCE 30 MINUTES BEFORE BREAKFAST cilostazol 50 mg tablet 50 mg PO QDAY Patient Comments: TAKE 1 TABLET BY MOUTH TWICE DAILY isosorbide mononitrate 30 mg tablet extended release 24 hr 30 mg PO QAM Patient Comments: TAKE 1 TABLET BY MOUTH EVERY DAY IN THE MORNING carvedilol 6.25 mg tablet 6.25 mg PO BID Patient Comments: TAKE 1 TABLET BY MOUTH TWICE DAILY amiodarone [Pacerone] 200 mg Tablet 200 mg PO QDAY melatonin 3 mg Tablet 6 mg PO QPM amlodipine [Norvasc] 5 mg Tablet 5 mg PO 2XD pantoprazole [Protonix] 40 mg Tablet,Delayed Release (Dr/Ec) 40 mg PO 1XD gabapentin [Neurontin] 300 mg Capsule 300 mg PO 2XD hydroxyzine HCl 10 mg Tablet 10 mg PO QPM PRN (Reason: Itching) rosuvastatin 10 mg Tablet 10 mg PO QPM revefenacin 175 mcg/3 mL Solution For Nebulization 175 mcg INHALATION 1XD insulin degludec [Tresiba U-100 Insulin] 100 unit/mL Solution 100 unit SUBCUT QPM naproxen [Naprosyn] 500 mg tablet 500 mg PO BID PRN (Reason: pain) Qty: 14 0RF meloxicam 15 mg tablet 15 mg PO QDAY Qty: 14 0RF docusate sodium [Dulcolax Stool Softener (dss)] 100 mg capsule 100 mg PO BID PRN (Reason: constipation) Qty: 20 0RF docusate sodium [Dulcolax Stool Softener (dss)] 100 mg capsule 100 mg PO BID PRN (Reason: constipation) Qty: 20 0RF cefuroxime axetil 500 mg tablet 500 mg PO BID Qty: 14 0RF acetaminophen [Tylenol Extra Strength] 500 mg tablet 1,000 mg PO Q6H PRN (Reason: fever or pain) Qty: 30 0RF amoxicillin-pot clavulanate 875-125 mg tablet 1 tab PO BID 10 Days Qty: 20 0RF Referrals: Usha Sterling PA-C [Primary Care Provider] - In 1 week Problem List Clinical Impression: Hyperglycemia, Headache Patient/Caregiver Discharge Instructions Education Materials: Self-Care for Headaches, ED Diabetes with High Blood Sugar Additional Instructions: Please follow-up with PCP within 24-48 hours and return immediately if symptoms worsen. If problem persists, recommend outpatient PT and/or MRI follow-up. In the meantime, rest, use ice/heat, and/or compression. See PCP to manage BS. Print Language: Welsh Stand Alone Forms: Patient Portal Info Letter PA/COLLECTION SYSTEMS TECHNICIAN Supervising Physician PA/COLLECTION SYSTEMS TECHNICIAN Supervising Physician: Dr. Sanchez
[2025-02-13 20:13] LABS: Basophils # (Auto) 0.0 Thou/mm3 (0.0-0.2); Basophils % (Auto) 0 % (0-2.5); Eosinophils # (Auto) 0.1 Thou/mm3 (0.0-0.5); Eosinophils % (Auto) 1 % (0-10); Hematocrit 33.3 % (36.0-46.0); Hemoglobin 11.6 g/dL (12.0-16.0); Immature Granulocytes Auto 0.11 Thou/mm3 (0.00-0.00); Lymphocytes # (Auto) 2.2 Thou/mm3 (1.0-4.8); Lymphocytes % (Auto) 23 % (10-50); Mean Corpuscular HGB Conc 34.8 g/dl (31.0-37.0); Mean Corpuscular Hemoglobin 29.9 pg (25.0-35.0); Mean Corpuscular Volume 86 fL (80-100); Monocytes # (Auto) 1.2 Thou/mm3 (0.0-0.8); Monocytes % (Auto) 12 % (0-12); Neutrophils # (Auto) 6.0 Thou/mm3 (1.8-7.7); Neutrophils % (Auto) 62 % (37-80); Nucleated Red Blood Cell # 0.04 Thou/mm3 (0.00-0.00); Nucleated Red Blood Cell % 0 /100 WBC (0); Platelet Count 424 Thou/mm3 (140-440); RDW Standard Deviation 46.4 fL (36.4-46.3); Red Blood Count 3.88 Miln/mm3 (4.00-5.20); White Blood Count 9.6 Thou/mm3 (3.6-11.0)
[2025-02-13 20:14] LABS: Collection Type, Urine Clean Catch
[2025-02-13 20:34] LABS: Bacteria,Urine Rare; Bilirubin,Urine Negative (Negative); Blood,Urine Negative (Negative); Clarity,Urine Clear (Clear/Hazy); Color,Urine Yellow (Lt Yel-Yel); Culture Indicated,Urine Not Indicated; Glucose, Urine 3+ (Negative); Hyaline Casts,Urine < 1 /hpf (0-1); Ketones,Urine Negative (Negative); Leukocyte Esterase,Urine Negative (Negative); Nitrite,Urine Negative (Negative); PH,Urine 6.5 (5.0-7.0); Protein,Urine Negative (Neg - Trace); RBC,Urine < 1 /hpf (0-3); Specific Gravity,Urine 1.006 (1.001-1.035); Squamous Epithelial Cell,Urine < 1 /hpf (0-5); Urobilinogen,Urine Negative mg/dL (0.0-1.0); WBC,Urine 2 /hpf (0-5)
[2025-02-13 20:50] LABS: Alanine Aminotransferase 22 U/L (10-49); Albumin, Serum 3.8 gm/dL (3.4-4.8); Albumin/Globulin Ratio 1.5 (1.2-2.2); Alkaline Phosphatase 203 U/L (46-116); Anion Gap 11 (7-16); Aspartate Amino Transferase 37 U/L (0-34); BUN/Creatinine Ratio 6 Ratio (12-20); Bilirubin,Total 0.7 mg/dL (0.3-1.2); Blood Urea Nitrogen 6 mg/dL (9-23); Calcium 8.8 mg/dL (8.3-10.6); Calcium (Corrected) 9.0 mg/dL (8.5-10.1); Carbon Dioxide 30.2 mMol/L (20.0-31.0); Chloride 93 mMol/L (98-107); Creatinine (Component) 1.0 mg/dL (0.6-1.3); Globulin 2.6 gm/dL (2.3-3.5); Osmolality,Calculated 284 (275-295); Potassium 3.4 mMol/L (3.4-5.1); Sodium 134 mMol/L (136-145); Total Protein 6.4 gm/dL (5.7-8.2); eGFR 54 See Note
[2025-02-13 20:54] LABS: Glucose 439 mg/dL (74-106)
[2025-02-13] MEDS: METOCLOPRAMIDE 5 MG TABLET PO (21:31)
[2025-02-13] MEDS: HYDROcodone/APAP 5/325 TABLET 1 TAB PO (21:31)
[2025-02-13] MEDS: INSULIN HUM REGULAR 1 UNIT/0.01 ML (PER UNIT) 10 UNIT SC (21:39)
== END 2025-02-13 21:45 | disposition home or self-care (01) ==
PROVIDERS: Physician Assistant; Emergency Provider Emergency Medicine; PCP Physician Assistant
DX: S13.4XXA Sprain of ligaments of cervical spine, initial encounter (principal); E11.65 Type 2 diabetes mellitus with hyperglycemia; R51.9 Headache, unspecified; X58.XXXA Exposure to other specified factors, initial encounter; Z79.4 Long term (current) use of insulin
CPT/HCPCS: 36415; 70450; 72125; 80053; 81001; 85025; 99283; J1815; A9270